=== PATIENT | female | born 1975 | race Two or more races ===

== ENCOUNTER → 2020-12-23 08:09 | Outpatient (BNVA) | payer SELFPAY | PROVIDERS: PCP Internal Medicine; Visit Provider Internal Medicine | DX: Z02.79 Encounter for issue of other medical certificate (principal) ==

== ENCOUNTER 2021-08-07 11:17 | Outpatient (REF) | payer OTHER, SELFPAY ==
[2021-08-07 14:06] LABS: Hematocrit 40.4 % (37.0-47.0); Hemoglobin 13.2 g/dl (12.0-16.0); Mean Corpuscular HGB Conc 32.7 g/dl (31.0-35.0); Mean Corpuscular Hemoglobin 29.3 pg (27.0-33.0); Mean Corpuscular Volume 89.8 fL (80.0-98.0); Mean Platelet Volume 9.5 fL (9.4-12.3); Platelet Count 325 X10*3/uL (160-400); White Blood Count 5.9 X10*3/uL (4.8-10.8)
[2021-08-07 14:35] LABS: Alanine Aminotransferase 15 U/L (0-31); Albumin Level 4.2 g/dL (3.5-5.0); Alkaline Phosphatase 80 U/L (39-117); Anion Gap 9 (12-20); Aspartate Amino Transferase 14 U/L (5-31); Bilirubin Total 0.4 mg/dL (0.0-1.0); Blood Urea Nitrogen 5 mg/dL (9-16); Calcium 9.3 mg/dL (8.4-10.2); Carbon Dioxide 27 mmol/L (22-29); Chloride 107 mmol/L (96-108); Cholesterol 142 mg/dL; Estimated Glomerular Filt Rate > 60; Glucose Fasting 97 mg/dL (60-99); HDL Cholesterol 33 mg/dL; LDL Cholesterol Calculated 88 mg/dl; Potassium 4.1 mmol/L (3.3-5.1); Sodium 139 mmol/L (135-145); Triglycerides 106 mg/dL
[2021-08-07 14:49] LABS: TSH reflex Free T4 1.06 uIU/mL (0.32-4.0)
== END 2021-08-07 11:18 | disposition home or self-care (01) ==
LOC: HO.WFDLDS 11:17
PROVIDERS: Visit Provider Hospitalist
DX: Z00.00 Encounter for general adult medical examination without abnormal findings (principal)
CPT/HCPCS: 36415; 80053; 80061; 84443; 85027

== ENCOUNTER → 2022-12-16 10:47 | Outpatient (BNVA) | payer SELFPAY | PROVIDERS: PCP Hospitalist; Visit Provider Physician Assistant Medical | DX: Z02.79 Encounter for issue of other medical certificate (principal) ==

== ENCOUNTER 2023-09-13 08:37 | Outpatient (AMB) | payer OTHER, SELFPAY ==
--- NOTE | 2023-09-13 08:43 | AM.OFFWIN_ITS ---
Intake Vital Signs 09/13/23 08:44 Height 5 ft 4 in Weight 160 lb BMI 27.5 BP 122/74 Blood Pressure Location Lt brachial Position Sitting Pulse 78 Pulse Source Pulse Oximeter Temp 97.8 F Temp Source Oral Pulse Oximetry (%) 98 Intake Visit Reasons: EP Back Pain Intake Note: pt is here for back pain, history of sciatica pain, denies urination urgency or any issues Patient Tobacco Use Status: Never used Tobacco Allergies cyclobenzaprine Adverse Reaction (Unknown, Verified 09/13/23 08:45) rapid heart rate Do you need a note to return to daycare/school/sports/work: No HPI HPI Comments History of Present Illness Details Patient presents to the walk-in today for sick visit Endorses right lower back pain for last 3 days Pain started after she got out of her vehicle Endorses history of lower back pain, states feels like her pain in the past She has been taking ibuprofen with minimal improvement Has applied topical [id number] medications without improvement Pain is worse with bending, movement and palpation Denies chance of , denies urinary signs and symptoms denies fevers. denies abdominal pain, nausea, vomiting, diarrhea or constipation COUNTS INCLUDE 234 BEDS AT THE [facility] Social History Housing: House Patient Tobacco Use Status: Never used Tobacco Current occupational status: employed Review of Systems Const All systems reviewed & are unremarkable except as noted in HPI and below Physical Exam Vital Signs: Last Vital Signs Temp 97.8 F 09/13/23 08:44 Pulse 78 09/13/23 08:44 BP 122/74 09/13/23 08:44 Pulse Ox 98 09/13/23 08:44 BMI result Body Mass Index 27.5 General: awake, alert, oriented. Answers questions appropriately. Fully engaged in examination. Skin: warm, dry, intact HEENT: Normocephalic. Hearing intact. Cardiac: External chest normal in appearance. Respiratory: No cough, audible wheezing or stridor. Abdomen: without gross distension. Abdomen soft nontender, no guarding. No CVA tenderness MS: No obvious swelling or deformities. Able to transition from sit to stand unassisted. Ambulates with bilaterally normal heel strike and toe off Tenderness to palpation over right lumbar musculature Nontender over midline lumbar vertebrae or lumbar paraspinal muscles SLR negative bilaterally Negative footdrop, negative clonus Range of motion limited secondary to pain. Extension more painful than flexion Neurological: Oriented to person, place, time and situation. Thought process intact. No gait abnormalities appreciated. Psychiatric: Appropriate mood and affect. Good judgment and insight. Assessment & Plan Assessment & Plan (1) Lumbar muscle pain: Code(s): M79.18 - Myalgia, other site Plan Continue with ibuprofen as needed Methocarbamol 500 mg p.o. t.i.d., patient advised on cautions for use. No driving while taking this medication may cause drowsiness. Do not take with other [employer] depressants. Lidocaine 5% patches, on for 12 hours, off for 12 hours. If no improvement patient was advised to follow up with her primary care doctor, may benefit from physical therapy or referral to crop specialist given history of chronic back pain. Follow up at the walk-in or with PCP for any new or worsening symptoms. Medications: New methocarbamol May cause drowsiness, no driving while taking this medication 500 mg PO TID 21 tabs 0RF lidocaine 5% leave on most painful area for up to 12 hrs 1 patch topical DAILY 15 ea 0RF Coding Level of Care Code Est Pt Level 3 (53392) Diagnoses Lumbar muscle pain M79.18
[2023-09-13 08:44] VITALS: BP 122/74; PULSE 78; TEMP 36.6; O2SAT 98; BMI 27.5
== END 2023-09-13 09:59 | disposition home or self-care (01) ==
PROVIDERS: PCP Hospitalist; Visit Provider Registered Nurse Emergency
DX: M79.18 Myalgia, other site (principal)
CPT/HCPCS: 99213

== ENCOUNTER 2023-10-11 13:06 | Outpatient (AMB) | payer OTHER, SELFPAY ==
--- NOTE | 2023-10-11 13:19 | A.OFFPC_ITS ---
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 Required: No Allergies cyclobenzaprine Adverse Reaction (Unknown, Verified 10/11/23 13:38) rapid heart rate Medication List - Last Reconciled 10/11/23 by Shantell Thompson, DIRECTOR STARS- lidocaine 5% 1 patch topical DAILY methocarbamol 500 mg PO TID Tobacco use date assessed: 10/11/23 Dental Screening Dental Screen Date: 10/11/23 Did you have a dental visit in the last 12 months?: Yes Did you have a dental problem in the last 6 months where you did not have access to dental care?: No Was dental information given to patient?: Patient has dentist HPI HPI Comments History of Present Illness Details 48 y/o F with chronic back pain, headach e social: 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 Alive and well. Siblings: 4 sisters, 2 brothers. Alive and well. Health Maintenance: Pap 08/2023 normal in [facility]. Denies hx of abnormals. Mammo 3 years ago Tdap 2018 Dexa has never had one Specialists: None Here today for CPE Eyes- denies visual problems. No corrective lenses. And to discuss the following problems: C/o R ear bother me inside ; this started 2 months ago. Denies drainage. Normal hearing. Left ear is not effected. No home tx. when eats, feels choking, has to drink water to help it go down; feels acid reflux; reports happens w/ all food types. Takes tums PRN with mild relief. Reports this started about 1 month ago. Has never had EGD or colonoscopy. has bruising, reports easy bruising w/o overt injury. Does not take ASA. Does take NSAIDS d/t chronic back pain. This started about 2 months ago. Occurs any where on body - arms, legs, back. 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 1. Little interest or pleasure in doing things: not at all 2. Feeling down, depressed, or hopeless: not at all 3. Trouble falling or staying asleep, or sleeping too much: not at all 4. Feeling tired or having little energy: not at all 5. Poor appetite or overeating: not at all 6. Feeling bad about yourself - or that you are a failure or have let yourself or your family down: not at all 7. Trouble concentrating on things, such as reading the newspaper or watching television: not at all 8. Moving or speaking so slowly that other people could have noticed. Or the opposite - being so fidgety or restless that you have been moving around a lot more than usual: not at all 9. Thoughts that you would be better off or of hurting yourself in some way: not at all Total score: 0 Depression Screening Interpretation: Negative Depression Screening Done: Yes 12176 - PHQ-9 Billing: Yes Source: Developed by Drs. Chilango Arenas, Giulia Van, Yousif Britt and colleagues, with an educational robert from [employer]. Thrive Questionnaire Date Thrive assessed: 10/11/23 I am a: Patient What is your living situation today?: I have a steady place to live Within the past 12 months, did the food you bought not last and you didn't have the money to get more?: Never true Within the past 12 months, did you worry whether your food would run out before you got money to buy more?: Never true Do you have trouble paying for medicines?: No Do you have trouble getting transportation to medical appointments?: No Do you have trouble paying your heating and electricity bill?: No Do you have trouble taking care of your child, family member or friend?: No Do you have trouble with day-to-day activities such as bathing, preparing meals, shopping, managing finances, etc.?: No Are you currently unemployed and looking for a job?: No Are you interested in more education?: No Please select the resources that you would like help with: None Currently or been in a relationship where the following occur: no concerns reported THRIVE Score: 0 AUDIT C Alcohol Use Questionnaire (AUDIT-C) 1. How often do you have a drink containing alcohol?: Never 3. How often do you have six or more drinks on one occasion?: Never Total Score: 0 Score Reviewed/Action Taken: Yes MK-7 AMB Questionnaire MK-7 Date MK - 7 assessed: 10/11/23 Feeling nervous, anxious, or on edge: 0 = Not at all Not being able to stop or control worryin = Not at all Worrying too much about different things: 0 = Not at all Trouble relaxin = Not at all Being so restless that it is hard to sit still: 0 = Not at all Becoming easily annoyed or irritable: 0 = Not at all Feeling afraid as if something awful might happen: 0 = Not at all Total MK-7 score (0-4 normal; 5-9 mild; 10-14 moderate; 15-21 severe): 0 Source: Developed by Drs. Chilango Arenas, Giulia Van, Yousif Britt and colleagues, with an educational robert from [employer]. MK-7 Assessment Billing MK-7 Assessment Tool: MK-7 Assessment 55246 Review of Systems Const Details: Constitutional: Denies fever. Skin: Denies rash. Eye: Denies eye pain. ENMT: Denies sore throat and nasal congestion. Respiratory: Denies shortness of breath and cough. Gastrointestinal: Denies nausea, vomiting or abdominal pain. Cardiovascular: Denies chest pain and syncope. Genitourinary: Denies dysuria. Musculoskeletal: Denies back pain and extremity pain. Neurologic: Denies headaches, confusion, and weakness. Psychiatric: Denies suicidal thoughts and substance abuse. Allergy/ Immunologic: Denies impaired immunity. Physical exam (Primary Care) Vital Signs: Last Vital Signs Temp 98.6 F 10/11/23 13:23 Pulse 75 05/20/24 13:23 Resp 14 10/11/23 13:23 BP 118/68 10/11/23 13:23 Pulse Ox 96 10/11/23 13:23 Oxygen Delivery Method Room Air 10/11/23 13:23 BMI result Body Mass Index 28.5 BMI Assessment/Plan discussion: High BMI High, discussed plan: lifestyle Tobacco/Smoking Status: Tobacco use Status Tobacco use date assessed 10/11/23 10/11/23 13:22 Patient Tobacco Use Status Never used Tobacco 10/11/23 13:22 e-Cigarette/Vaping Use Never Used 10/11/23 13:22 Depression Screening Interpretation: Negative Thrive Assessment: Date of Thrive Assessment Date Thrive assessed 10/11/23 10/11/23 13:26 Currently or been in a relationship where the following occur: no concerns reported Advance Care Planning discussion: Exists, not on file Date of discussion: 10/11/23 Who was present: Self Forms completed: Health Care Proxy and MOLST Time spent: 1-15 minutes, not on file Actual minutes spent: 2 Did not discuss due to Cultural/Spiritual beliefs: No Const Other: General: Well developed, well nourished, in no acute distress. Appears stated age. Head: Normocephalic, atraumatic. Eyes: Pupils are equal, round and reactive to light and accommodation. Conjunctivae are clear. Vision grossly normal. Ears: Cerumen impaction bilat, unable to see TM Nose: Patent, without discharge. Mouth: There are no ulcers or lesions noted. No inflammation, no post nasal drip, no plaques nor exudates. Neck: Supple, no adenopathy , + thyromegaly, nontender, trachea midline Lungs: Clear to auscultation bilaterally. No rales, rhonchi or wheeze noted. Ten throughout Heart: Regular rate and rhythm. No murmurs, click, rubs or gallops are noted. Abdomen: Bowel sounds present in all quadrants. The abdomen is soft, nontender, with no masses or organomegaly noted. No hernias are noted. Musculoskeletal: Joints are nontender, without swelling, redness, or effusions. Range of motion is observed to be normal. Pulses: Peripheral pulses are equal and palpable bilaterally. Extremities: No clubbing, cyanosis nor edema is noted. Neurologic: Gait and station normal. Cranial Nerves 2-12 intact. Motor strength grossly symmetrical and intact. No sensory loss. Balance normal. Skin: No rashes, ulcers, or lesions noted. Turgor is good. Skin color is good. Hair and nails are without abnormalities. Several bruises in different stages of healing noted on bilat arms during exam today Psych: Normal eye contact, affect and mood appropriate, and normal interactions. Patient is alert and appropriate to context. Extremities: No clubbing, cyanosis or edema. Assessment and Plan Assessment & Plan (1) Encounter for general adult medical examination with abnormal findings: Code(s): Z00.01 - Encounter for general adult medical examination with abnormal findings (2) Thyromegaly: Comment: We will check thyroid labs as well as an ultrasound of the thyroid and bring her back to discuss. Code(s): E01.0 - Iodine-deficiency related diffuse (endemic) goiter (3) Bruising: Comment: We will check some labs and bring her back to discuss. May be related to NSAID use. Code(s): T14.8XXA - Other injury of unspecified body region, initial encounter (4) Impacted cerumen, bilateral: Comment: Treat with Debrox and return to office next week for bilat lavage Code(s): H61.23 - Impacted cerumen, bilateral (5) Menopause: Comment: DEXA ordered today. Code(s): Z78.0 - Asymptomatic menopausal state (6) Dysphagia: Comment: Uncertain of the cause at this time. Incidental finding of thyromegaly on exam. May be related to this. In addition to the thyroid ultrasound, we will check a stool for H pylori. She may benefit from a barium swallow or perhaps a referral to GI. We will wait until the current labs and diagnostics are complete before placing any additional orders. Code(s): R13.10 - Dysphagia, unspecified Qualifiers: Dysphagia type: oropharyngeal phase Qualified Code(s): R13.12 - Dysphagia, oropharyngeal phase Plan This note is constructed using voice recognition software. While every effort has been made to ensure accuracy in admissions advisor, still errors may have been included Sometimes, these errors may affect the content or meaning of the given sentence . In addition to the time required for her complete physical exam, and additional 20 minutes caring for the patient today to address her problematic concerns.. This includes time spent before the visit reviewing the chart, time spent during the visit, and time spent after the visit on documentation Orders: Orders Microalbumin, Random (w Creat) Today Z00.00 - Encounter for general adult medical examination without abnormal findings Complete Blood Count Auto Diff Today E01.0 - Iodine-deficiency related diffuse (endemic) goiter, T14.8XXA - Other injury of unspecified body region, initial encounter PT, INR - Anti Coag Today E01.0 - Iodine-deficiency related diffuse (endemic) goiter, T14.8XXA - Other injury of unspecified body region, initial encounter Hepatitis A,B,C Profile Today E01.0 - Iodine-deficiency related diffuse (endemic) goiter, T14.8XXA - Other injury of unspecified body region, initial encounter HIV Ab/Ag Today E01.0 - Iodine-deficiency related diffuse (endemic) goiter, T14.8XXA - Other injury of unspecified body region, initial encounter Comprehensive Met. Panel Today Z00.00 - Encounter for general adult medical examination without abnormal findings LDL Cholesterol Direct Today Z00.00 - Encounter for general adult medical examination without abnormal findings Hemoglobin A1c Today Z00.00 - Encounter for general adult medical examination without abnormal findings TSH reflex Free T4 Today Z00.00 - Encounter for general adult medical examination without abnormal findings Vitamin D 1,25 dihydroxy Today Z00.00 - Encounter for general adult medical examination without abnormal findings MM tomosynthesis screening BI Today Z12.31 - Encounter for screening mammogram for malignant neoplasm of breast US thyroid Today E01.0 - Iodine-deficiency related diffuse (endemic) goiter, H61.23 - Impacted cerumen, bilateral, T14.8XXA - Other injury of unspecified body region, initial encounter Thyroid Peroxidase Antibodies Today E01.0 - Iodine-deficiency related diffuse (endemic) goiter XR DEXA appendicular skeleton Today Z78.0 - Asymptomatic menopausal state Von Willebrand Factor Antigen Today E01.0 - Iodine-deficiency related diffuse (endemic) goiter, T14.8XXA - Other injury of unspecified body region, initial encounter CAMRYN Reflex Titer and Pattern Today E01.0 - Iodine-deficiency related diffuse (endemic) goiter, T14.8XXA - Other injury of unspecified body region, initial encounter H pylori Ag Stool Today E01.0 - Iodine-deficiency related diffuse (endemic) goiter, T14.8XXA - Other injury of unspecified body region, initial encounter Medications: New carbamide peroxide 6.5% (Debrox) 5 drps otic (ears) DAILY 5 days 15 mL 0RF BILAT EARS Patient Instructions: Return to office next week to review labs as well as bilat ear lavage Health screenings for women You should visit your health care provider from time to time, even if you are healthy. The purpose of these visits is to: Screen for medical issues Assess your risk for future medical problems Encourage a healthy lifestyle Update vaccinations and other preventive care services Help you get to know your provider in case of an illness Information Even if you feel fine, you should still see your provider for regular checkups. These visits can help you avoid problems in the future. For example, the only way to find out if you have high blood pressure is to have it checked regularly. High blood sugar and high cholesterol levels also may not have any symptoms in the early stages. A simple blood test can check for these conditions. There are specific times when you should see your provider or receive specific health screenings. The [place] Preventive Services Task Force publishes a list of recommended screenings. Below are screening guidelines for women ages 18 to 39. BLOOD PRESSURE SCREENING Your blood pressure should be checked at least once every 3 to 5 years if: Your blood pressure is in the normal range (top number less than 120 mm Hg and bottom number less than 80 mm Hg) You don't have risk factors for high blood pressure Ask your provider if you need your blood pressure checked more often if: The top number is 120 to 129 mm Hg or the bottom number is 70 to 79 mm Hg You have diabetes, heart disease, kidney problems, are overweight, or have certain other health conditions You have a first-degree relative with high blood pressure You are Black You had high blood pressure during a If the top number is 130 mm Hg or greater or the bottom number is 80 mm Hg or greater, this is considered stage 1 hypertension. Schedule an appointment with your provider to learn how you can reduce your blood pressure. Watch for blood pressure screenings in your area. Ask your provider if you can stop in to have your blood pressure checked. BREAST CANCER SCREENING Experts do not agree about the benefits of breast self-exams in finding breast cancer or saving lives. Talk to your provider about what is best for you. A screening mammogram is not recommended for most women under age 40. Your provider may discuss and recommend mammograms, MRI scans, or ultrasounds if you have an increased risk for breast cancer, such as: A mother or sister who had breast cancer at a young age (most often starting screening earlier than the age the close relative was diagnosed) You carry a high-risk genetic marker CERVICAL CANCER SCREENING Cervical cancer screening should start at age 21 years unless your provider advises otherwise. After the first test: Women ages 21 through 29 should have a Pap test every 3 years. Exoprts do not agree on whether HPV testing is recommended for this age group. Women ages 30 through 65 should be screened with either a Pap test every 3 years or the HPV test every 5 years or both tests every 5 years (called cotesting ). Women who have been treated for precancer (cervical dysplasia) should continue to have Pap tests for 20 years after treatment or until age 65, whichever is longer. If you have had your uterus and cervix removed (total hysterectomy), and you have not been diagnosed with cervical cancer or precancer (high grade cervical neoplasia), you do not need cervical cancer screening. CHOLESTEROL SCREENING Cholesterol screening should begin at: Age 45 for women with no known risk factors for coronary heart disease Age 20 for women with known risk factors for coronary heart disease Repeat cholesterol screening should take place: Every 5 years for women with normal cholesterol levels More often if changes occur in lifestyle (including weight gain and diet) More often if you have diabetes, heart disease, kidney problems, or certain other conditions DIABETES SCREENING You should be screened for diabetes starting at age 35 and then repeated every 3 years if you have no risk factors for diabetes. Screening may need to start earlier and be repeated more often if you have other risk factors for diabetes, such as: You have a first degree relative with diabetes. You are overweight or have obesity. You have high blood pressure, prediabetes, or a history of heart disease. Screening for diabetes should be done if you are planning to become and you are overweight and have other risk factors such as high blood pressure. DENTAL EXAM Go to the dentist once or twice every year for an exam and cleaning. Your dentist will evaluate if you need more frequent visits. EYE EXAM Have an eye exam every 5 to 10 years before age 40. If you have vision problems, have an eye exam every 2 years or more often if recommended by your provider. You should have an eye exam that includes an examination of your retina (back of your eye) at least every year if you have diabetes. IMMUNIZATIONS Commonly needed vaccines include: Flu shot: get one every year. COVID-19 vaccine: ask your provider what is best for you. Tetanus-diphtheria and acellular pertussis (Tdap) vaccine: have one at or after age 19 as one of your tetanus-diphtheria vaccines if you did not receive it as an adolescent. Tetanus-diphtheria: have a booster (or Tdap) every 10 years. Varicella vaccine: receive 2 doses if you never had chickenpox or the varicella vaccine. Hepatitis B vaccine: receive 2, 3, or 4 doses, depending on your exact circumstances. Measles, mumps, and rubella (MMR) vaccine: receive 1 to 2 doses if you are not already immune to MMR. Your provider can tell you if you are immune. Ask your provider about the human papillomavirus (HPV) vaccine if: You have not received the HPV vaccine in the past You have not completed the full vaccine series (you should catch up on this shot) Ask your provider if you should receive other immunizations if you have certain health problems that increase your risk for some diseases such as pneumonia. INFECTIOUS DISEASE SCREENING Women who are sexually active should be screened for chlamydia and gonorrhea up until age 25. Women 25 years and older should be screened for chlamydia and gonorrhea if at high risk. Screening for hepatitis C: All adults ages 18 to 79 should get a one-time test for hepatitis C. people should be screened at every . Screening for human immunodeficiency virus (HIV): All people ages 15 to 65 should get a one-time test for HIV. Depending on your lifestyle and medical history, you may also need to be screened for infections such as syphilis and HIV, as well as other infections. PHYSICAL EXAM All adults should visit their provider from time to time, even if they are healthy. The purpose of these visits is to: Screen for disease Assess your risk of future medical problems Encourage a healthy lifestyle Update your vaccinations and other preventive care services Maintain a relationship with a provider in case of an illness Your height, weight, and BMI should be checked at every exam. During your exam, your provider may ask you about: Depression and anxiety Diet and exercise Alcohol and tobacco use Safety issues, such as using seat belts, smoke detectors, and intimate partner violence Your medicines and risk for interactions SKIN SELF-EXAM Your provider may check your skin for signs of skin cancer, especially if you're at high risk, such as if you: Have had skin cancer before Have close relatives with skin cancer Have a weakened immune system OTHER SCREENING Talk with your provider about colon cancer screening if you have a strong family history of colon cancer or polyps, or if you have had inflammatory bowel disease or polyps yourself. Routine bone density screening of women under 40 is not recommended. Coding Level of Care Code Est Pt Level 3 (99190) Est Pt Prev Care 40-64y(99611) Diagnoses Encounter for general adult medical examination with abnormal findings Z00.01 Thyromegaly E01.0 Bruising T14.8XXA Impacted cerumen, bilateral H61.23 Menopause Z78.0 Oropharyngeal dysphagia R13.12 Dysphagia type: oropharyngeal phase Additional Codes MK-7 Assessment Billing - MK-7 Assessment Tool: MK-7 Assessment 04387 ([id number]) Vital Signs *Quality* - Advance Care Planning discussion: Exists, not on file ([id number]) Vital Signs *Quality* - Time spent: 1-15 minutes, not on file ([id number])
[2023-10-11 13:23] VITALS: BP 118/68; PULSE 75; RESP 14; TEMP 37; O2SAT 96; BMI 28.5
== END 2023-10-11 13:55 | disposition home or self-care (01) ==
PROVIDERS: PCP Nurse Practitioner Family; Visit Provider Nurse Practitioner Family
DX: Z00.01 Encounter for general adult medical examination with abnormal findings (principal); E01.0 Iodine-deficiency related diffuse (endemic) goiter; T14.8XXA Other injury of unspecified body region, initial encounter; H61.23 Impacted cerumen, bilateral; Z78.0 Asymptomatic menopausal state; R13.12 Dysphagia, oropharyngeal phase
CPT/HCPCS: 1124F; 99213; 99396

== ENCOUNTER 2023-10-12 09:40 | Outpatient (REF) | payer OTHER, SELFPAY ==
[2023-10-12 10:20] LABS: MANUAL DIFF FLAG NO
[2023-10-12 10:52] LABS: Basophils Absolute Auto 0.1 X10*3/uL (0.0-0.2); Basophils Percent Auto 0.9 % (0-2); Eosinophils Absolute Auto 0.1 X10*3/uL (0.0-0.4); Eosinophils Percent Auto 0.8 % (0-4); Hematocrit 44.5 % (37.0-47.0); Hemoglobin 14.8 g/dl (12.0-16.0); Imm Gran Abs Auto 0.04 X10*3/uL (0.00-0.03); Imm Gran Pct Auto 0.6 % (0.0-0.4); Lymphocytes Percent Auto 29.9 % (20-40); Mean Corpuscular HGB Conc 33.3 g/dl (31.0-35.0); Mean Corpuscular Hemoglobin 29.5 pg (27.0-33.0); Mean Corpuscular Volume 88.8 fL (80.0-98.0); Monocytes Absolute Auto 0.5 X10*3/uL (0.1-1.2); Monocytes Percent Auto 7.7 % (2-11); Neutrophils Percent Auto 60.1 % (45-73); Platelet Count 358 X10*3/uL (160-400); Red Blood Count 5.01 X10*6/uL (4.20-5.50); Red Cell Distribution Width 13.2 % (11.0-16.0); White Blood Count 6.6 X10*3/uL (4.8-10.8)
[2023-10-12 10:57] LABS: Estimated Average Glucose 111 mg/dL; Hemoglobin A1c % 5.5 % (<6.0)
[2023-10-12 11:46] LABS: Alanine Aminotransferase 22 U/L (0-31); Albumin Level 4.4 g/dL (3.5-5.0); Alkaline Phosphatase 102 U/L (39-117); Anion Gap 14 (12-20); Aspartate Amino Transferase 21 U/L (5-31); Bilirubin Total 0.3 mg/dL (0.0-1.0); Blood Urea Nitrogen 6 mg/dL (9-16); Calcium 9.9 mg/dL (8.4-10.2); Carbon Dioxide 25 mmol/L (22-29); Chloride 106 mmol/L (96-108); Estimated Glomerular Filt Rate > 60; Glucose Random 83 mg/dL (60-115); Potassium 4.4 mmol/L (3.3-5.1); Sodium 141 mmol/L (135-145); Total Protein 7.6 g/dL (6.5-8.0)
[2023-10-12 11:54] LABS: Creatinine Urine 34.97 mg/dL; Microalbumin Urine < 5.0 mg/L
[2023-10-12 12:05] LABS: TSH reflex Free T4 1.84 uIU/mL (0.32-4.0)
[2023-10-13 08:13] LABS: HBS Num1 0.54 mIU/mL (0-7.99); HBc Num1 0.11 S/CO (0.00-0.79); HBsAGNum1 0.33 S/CO (0.00-0.99); HIV AB/AG Nonreactive (Nonreactive); HIV Num 1 0.04 S/CO (0.00-0.99); Hepatitis A Antibody IgM 0.16 Index (0-0.79); Hepatitis B Core Antibody Nonreactive (Nonreactive); Hepatitis B Surface Antigen Negative (Negative); ~HepC Num1 0.08 S/CO (0.00-0.79); ~Hepatitis A Antibody IgM Nonreactive (Nonreactive); ~Hepatitis B Surface Antibody NONREACTIVE (Nonreactive); ~Hepatitis C Antibody Nonreactive (Nonreactive)
[2023-10-13 11:48] LABS: LDL Cholesterol Direct 103 mg/dL (<100)
[2023-10-13 18:13] LABS: Thyroid Peroxidase Antibodies 19 IU/mL (<9)
[2023-10-14 16:14] LABS: Anti Nuclear Antibody Screen NEGATIVE (NEGATIVE)
[2023-10-15 17:13] LABS: Von Willebrand Factor Antigen 71 % (50-217)
[2023-10-16 05:49] LABS: VITAMIN D (1,25 OH) D3 29 pg/mL; Vit D (1,25-Dihydroxy) Total 29 pg/mL (18-72); Vitamin D (1,25 OH) D2 <8 pg/mL
== END 2023-10-12 09:41 | disposition home or self-care (01) ==
LOC: HO.LAB 09:40
PROVIDERS: PCP Nurse Practitioner Family; Visit Provider Nurse Practitioner Family
DX: Z00.00 Encounter for general adult medical examination without abnormal findings (principal); T14.8XXA Other injury of unspecified body region, initial encounter; E01.0 Iodine-deficiency related diffuse (endemic) goiter
CPT/HCPCS: 36415; 80053; 82043; 82570; 82652; 83036; 83721; 84443; 85025; 85246; 86038; 86376; 86704; 86706; 86709; 86803; 87338; 87340; 87389

== ENCOUNTER 2023-10-21 12:59 | Outpatient (AMB) | payer OTHER, SELFPAY ==
[2023-10-21 13:18] VITALS: BP 118/70; PULSE 68; RESP 13; TEMP 36.6; O2SAT 97; BMI 28.4
--- NOTE | 2023-10-21 13:18 | A.OFFPC_ITS ---
Vital Signs 10/21/23 13:18 Height 5 ft 2.6 in Weight 158 lb 4 oz BMI 28.4 BP 118/70 Blood Pressure Location Rt brachial Position Sitting Respiration 13 Pulse 68 Pulse Source Pulse Oximeter Temp 97.8 F Temp Source Temporal Artery Scan Pulse Oximetry (%) 97 Oxygen Delivery Method Room Air Intake Visit Reasons: next week w me Bilat ear lavage, lab review Associate [employer] Required: No Accompanied by: Self / Same As Patient Allergies cyclobenzaprine Adverse Reaction (Unknown, Verified 10/21/23 13:24) rapid heart rate Medication List - Last Reconciled 10/21/23 by Shantell Thompson, WELDER 2ND [employer]- lidocaine 5% 1 patch topical DAILY methocarbamol 500 mg PO TID Tobacco use date assessed: 10/11/23 Dental Screening Dental Screen Date: 10/11/23 HPI HPI Comments History of Present Illness Details 48 y/o F with chronic back pain, headach e Here today to fu on bruising, thyromegaly, labs, choking sensation & abd pain. The labs below were reviewed w/ her in detail. Labs 10/12/2019 with mean platelet volume low 9, immature granulocytes high 0.6, elevated absolute immature granulocytes 0.04, otherwise normal CBC, hemoglobin A1c 5.5%, Normal CMP, normal TSH, normal urine microalbumin creatinine ratio, LDL 103, H pylori negative, CAMRYN negative, TPO antibodies elevated at 19, hepatitis profile negative. This includes immunity to hep B recommend hep B vaccine, HIV negative, negative Sorin alvarado Vit D WNL She was able to use debrox. Cont w/ bruising and choking w/o change. New complaint today about headache w/ blurred vision that has happened 3-4 times in the last month. Reports migraines but this feels different. Denies any loss of function, fever, chills or red flag sx. Last eye exam 2 years ago. Sx resolve after resting. Taking NSAIDs for chronic back pain - nothing add'l to help w/ this headache. Has thyroid US today at 1530. Plan: Bilat ears irrigated today. Refer to Optho for eye exam. If negative, consider imaging of head. Discussed referral to heme for bruising and abnormal CBC VS repeating labs in about 6 weeks. If cont to be abnormal or worse, at that time refer to Heme. Advised to stop Ibuprofen start celebrex try to use sparingly Will review thyroid US results and review w her at next OV. She does have + TPO AB with normal TSH. 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 Chilango Arenas, Giulia Van, Yousif Britt and colleagues, with an educational robert from [employer]. Review of Systems Const All systems reviewed & are unremarkable except as noted in HPI and below Physical exam (Primary Care) Vital Signs: Last Vital Signs Temp 97.8 F 10/21/23 13:18 Pulse 68 10/21/23 13:18 Resp 13 10/21/23 13:18 BP 118/70 10/21/23 13:18 Pulse Ox 97 10/21/23 13:18 Oxygen Delivery Method Room Air 10/21/23 13:18 BMI result Body Mass Index 28.4 Tobacco/Smoking Status: Tobacco use Status Tobacco use date assessed 10/11/23 10/21/23 13:25 Patient Tobacco Use Status Never used Tobacco 10/21/23 13:25 e-Cigarette/Vaping Use Never Used 10/21/23 13:25 Thrive Assessment: Date of Thrive Assessment Date Thrive assessed 10/11/23 10/21/23 13:25 Const Other: General: Well developed, well nourished, in no acute distress. Appears stated age. Head: Normocephalic, atraumatic. Eye: EOMI,PERRLA, no photophobia Neck: Supple, no adenopathy , + thyromegaly, nontender, trachea midline Skin: No rashes, ulcers, or lesions noted. Turgor is good. Skin color is good. Hair and nails are without abnormalities. Several bruises in different stages of healing noted on bilat arms during exam today Neuro: grossly normal exam. Office Procedures Cerumen Removal From which ear canal was the cerumen removed: bilateral Removal: irrigation Notes: patient tolerated procedure well, no complications and ear canal clear [id number] Irrigation/Lavage Assessment and Plan Assessment & Plan (1) Blurred vision: Code(s): H53.8 - Other visual disturbances (2) Bruising: Comment: May be related to NSAID use. Code(s): T14.8XXA - Other injury of unspecified body region, initial encounter (3) Dysphagia: Comment: Uncertain of the cause at this time. Incidental finding of thyromegaly on exam. May be related to this. In addition to the thyroid ultrasound,. She may benefit from a barium swallow or perhaps a referral to GI. We will wait until the current labs and diagnostics are complete before placing any additional orders. Code(s): R13.10 - Dysphagia, unspecified Qualifiers: Dysphagia type: oropharyngeal phase Qualified Code(s): R13.12 - Dysphagia, oropharyngeal phase (4) Impacted cerumen, bilateral: Comment: resolved Code(s): H61.23 - Impacted cerumen, bilateral (5) Thyromegaly: Comment: + TPO AB, US pending. 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 SOONER NEEDED. PLEASE SCHEDULE EYE DR APPBlossom GILDA Coding Level of Care Code Est Pt Level 5 (33566) Complex EM visit Add On G2211 Diagnoses Blurred vision H53.8 Bruising T14.8XXA Oropharyngeal dysphagia R13.12 Dysphagia type: oropharyngeal phase Impacted cerumen, bilateral H61.23 Thyromegaly E01.0 CPT Codes Office Procedure - CPT: 90583-Rqx Irrigation/Lavage ([id number])
== END 2023-10-21 14:04 | disposition home or self-care (01) ==
PROVIDERS: PCP Nurse Practitioner Family; Visit Provider Nurse Practitioner Family
DX: R13.12 Dysphagia, oropharyngeal phase (principal); H61.23 Impacted cerumen, bilateral; H53.8 Other visual disturbances; T14.8XXA Other injury of unspecified body region, initial encounter; E01.0 Iodine-deficiency related diffuse (endemic) goiter
CPT/HCPCS: 69209; 99214; G2211

== ENCOUNTER 2023-10-21 14:34 | Outpatient (REF) | payer OTHER, SELFPAY ==
--- NOTE | ~2023-10-21 | US_ITS ---
EXAMINATION: US THYROID CLINICAL INFORMATION: Iodine-deficiency related diffuse (endemic) goiter. COMPARISON: None available. TECHNIQUE: Linear transducer grayscale and color Doppler examination with attention to the region of the thyroid. FINDINGS: SIZE: Measurements of the thyroid lobes and nodules are given in sagittal, anteroposterior and transverse dimensions respectively. Right Thyroid Lobe: 4.6 x 1.7 x 1.6 cm, volume 6.5 mL. Parenchyma: The gland echotexture is homogeneous. Thyroid vascularity is normal. Left Thyroid Lobe: 4.6 x 1.4 x 1.2 cm, volume 4.0 mL. Parenchyma: The gland echotexture is homogeneous. Thyroid vascularity is normal. Isthmus: 0.4 cm in maximum AP dimension. Estimated total number of nodules greater than or equal to 1 cm: 2. Infertility Medical Assistant nodules are described as follows: 1. Location: Right upper pole. Size: 1.0 x 0.8 x 0.9 cm, volume 0.4 mL. Nodule characteristics: Composition: Mixed cystic and solid (1). Echogenicity: Hypoechoic (2). Shape: Not taller than wide (0). Margins: Ill-defined (0). Echogenic Foci: None (0). ACR TI-RADS total points: 3 ACR TI-RADS category: 3 2. Location: Right lower pole. Size: 2.5 x 1.5 x 1.7 cm, volume 3.1 mL. Nodule characteristics: Composition: Solid/almost completely solid (2). Echogenicity: Isoechoic (1). Shape: Not taller than wide (0). Margins: Ill-defined (0). Echogenic Foci: None (0). ACR TI-RADS total points: 3 ACR TI-RADS category: 3 3. Location: Left mid pole. Size: 0.3 x 0.2 x 0.3 cm, volume 0.009 mL. Nodule characteristics: Composition: Solid (2). Echogenicity: Hyperechoic (1). Shape: Not taller than wide (0). Margins: Ill-defined (0). Echogenic Foci: None (0). ACR TI-RADS total points: 3 ACR TI-RADS category: 3 NODES: No lymphadenopathy is seen in the tissue surrounding the thyroid gland. US/US thyroid IMPRESSION: Bilateral thyroid nodules, largest 2.5 cm right lower TR3 nodule. Recommend followup ultrasound in 12 months. ACR TI-RADS RECOMMENDATION REFERENCE: Ultrasound-guided fine-needle aspiration, followup ultrasound, no further follow up. * TR1 (0 point) and TR2 (2 points): No FNA or follow up. * TR3 (3 points): FNA if more than or equal to 2.5 cm in maximum dimension, followup ultrasound in 1, 3 and 5 years if 1.5 to 2.4 cm in maximum dimension. * TR4 (4-6 points): FNA if more than or equal to 1.5 cm in maximum dimension, followup ultrasound in 1, 2, 3 and 5 years if 1 to 1.4 cm in maximum dimension. * TR5 (more than or equal to 7 points): FNA if more than or equal to 1 cm in maximum dimension, followup ultrasound every year for 5 years if 0.5 to 0.9 cm in maximum dimension. * TR3, TR4 or TR5 nodules that are below the size threshold for followup receive no follow up.
== END 2023-10-21 14:35 | disposition home or self-care (01) ==
LOC: HO.US 14:34
PROVIDERS: PCP Nurse Practitioner Family; Visit Provider Nurse Practitioner Family
DX: E01.0 Iodine-deficiency related diffuse (endemic) goiter (principal); T14.8XXA Other injury of unspecified body region, initial encounter; H61.23 Impacted cerumen, bilateral
CPT/HCPCS: 76536

== ENCOUNTER 2023-11-12 10:32 | Outpatient (REF) | payer OTHER, SELFPAY ==
--- NOTE | ~2023-11-12 | MM_ITS ---
EXAMINATION: BONE DENSITOMETRY CLINICAL INDICATION: Asymptomatic menopausal state. COMPARISON: This is the patient's baseline examination. TECHNIQUE: Using a [employer] DXA System (software version: 13.1) manufactured by [employer], dual-energy x-ray absorptiometry was performed of the lumbar spine and left hip. The images are of good technical quality. Summary results are attached. FINDINGS: LEFT FEMUR, NECK: BMD 0.782 g/cm2, Z-score -1.4, T-score -1.8, osteopenia. LEFT FEMUR, TOTAL: BMD 0.705 g/cm2, Z-score -2.2, T-score -2.4, osteopenia. AP SPINE L1-L4: BMD 0.983 g/cm2, Z-score -1.7, T-score -1.6, osteopenia. IDENTIFIED RISK FACTORS: Early menopause, secondary osteoporosis, bilateral oophorectomy. HISTORY OF FRACTURE: None listed. MEDICATIONS: ERT/SERMS. MM/XR DEXA axial skeleton IMPRESSION: 1. DIAGNOSIS: Osteopenia based on the lowest T-score value of -2.4 in the total femur applying World Health Organization criteria. 2. 10-YEAR FRACTURE RISK PREDICTION, FRAX: Not performed in this patient on estrogen or bone building treatments. 3. Treatment Recommendations: NOF guidelines recommend consideration for treatment in postmenopausal women and men age 50 and older presenting with the following: -A hip or vertebral (clinical or morphometric) fracture. -T-score less than or equal to -2.5 at the femoral neck or spine after appropriate evaluation to exclude secondary causes. -Low bone mass at the hip or spine and a 10-year fracture probability by FRAX of greater than or equal to 3% for hip fracture or greater than or equal to 20% for major osteoporotic fracture based on the [place] adapted WHO algorithm. 4. Other Recommendations: All treatment decisions require clinical judgment and consideration of individual patient factors, including patient preferences, comorbidities, previous drug use, risk factors not captured in the FRAX model (e.g. frailty, falls, vitamin D deficiency, increased bone turnover, interval significant decline in bone density) and possible under or overestimation of fracture risk by FRAX. Additional medical evaluation for secondary cause of low bone mineral density may be appropriate. FUTURE SCAN RECOMMENDATION: People with diagnosed cases of osteoporosis or at high risk for fracture should have regular bone mineral density tests. For patients eligible for Medicare, routine testing is allowed once every 2 years. The testing frequency can be increased to one year for patients who have rapidly progressing disease, those who are receiving or discontinuing medical therapy to restore bone mass, or have additional risk factors.
== END 2023-11-12 10:33 | disposition home or self-care (01) ==
LOC: HO.MAMMO 10:32
PROVIDERS: PCP Nurse Practitioner Family; Visit Provider Nurse Practitioner Family
DX: Z12.31 Encounter for screening mammogram for malignant neoplasm of breast (principal); Z13.820 Encounter for screening for osteoporosis; Z78.0 Asymptomatic menopausal state
CPT/HCPCS: 77063; 77067; 77080

== ENCOUNTER → 2023-11-12 11:00 | Outpatient (BNV) | payer OTHER, SELFPAY | PROVIDERS: PCP Nurse Practitioner Family; Visit Provider Radiology Diagnostic Radiology | DX: Z12.31 Encounter for screening mammogram for malignant neoplasm of breast (principal) | CPT/HCPCS: 77063; 77067 ==

== ENCOUNTER 2023-12-01 08:55 | Outpatient (AMB) | payer OTHER, SELFPAY ==
--- NOTE | 2023-12-01 08:57 | A.OFFPC_ITS ---
Vital Signs 12/01/23 09:01 Weight 159 lb 4 oz BP 128/74 Blood Pressure Location Lt brachial Position Sitting Pulse 68 Pulse Source Pulse Oximeter Temp 97.7 F Temp Source Temporal Artery Scan Pulse Oximetry (%) 98 Oxygen Delivery Method Room Air Intake Visit Reasons: f/u Bilat ear lavage, lab review Intake Note: patient here for follow up, ears are better. Conveyor Mechanic Required: No Is last menstrual period known: No Post menopausal: No Patient : No Allergies cyclobenzaprine Adverse Reaction (Unknown, Verified 12/01/23 08:59) rapid heart rate Medication List - Last Reconciled 12/01/23 by Shantell Thompson, STORAGE AND BACKUP ADMINISTRATOR-BC calcium-vitamin D3-vitamin K 650 mg-12.5 mcg-40 mcg (Viactiv) 1 tab PO DAILY celecoxib (Celebrex) 100 mg PO BID PRN lidocaine 5% 1 patch topical DAILY Tobacco use date assessed: 10/11/23 Dental Screening Dental Screen Date: 10/11/23 HPI HPI Comments History of Present Illness Details 48 y/o F with chronic back pain, osteope serge Health Maintenance: Pap Mammo DEXA 10/2023 Osteopenia, repeat 5 years Specialists: Ricky initial appt 12/29/23 Optho December 08 2023 Here today to fu on recent imaging as well as repeat labs. Unfortunately she did not get the repeat labs done before today's visit. She will get these done today after the visit. In regards to her bruising she did stop taking NSAIDs. She has had significant improvement in her bruises. However the Celebrex is not helping her pain at all. She continues to deny overt bleeding. In regards to the visual disturbances discuss with the last office visit, they are still there, no worse since onset. She has a initial ophthalmology appointment December 07. In regards to her thyroid, the ultrasound results below were discussed with her in detail today. An endocrinology referral was placed and her initial appointment is 12/29/2023 at [facility] endocrinology. Her bone density results were discussed with her today showing osteopenia. She does not take a multivitamin. She is active. We will start her on a calcium plus vitamin-D supplement. And finally she reports that she does not have a great appetite. Reports he is drinking lots of water to get food down so that she does not choke and therefore she is full before she is able to even eat or complete her meal. While this is not new she just mentions that again today. Labs 10/12/2023 with mean platelet volume low 9, immature granulocytes high 0.6, elevated absolute immature granulocytes 0.04, otherwise normal CBC, hemoglobin A1c 5.5%, Normal CMP, normal TSH, normal urine microalbumin creatinine ratio, LDL 103, H pylori negative, CAMRYN negative, TPO antibodies elevated at 19, hepatitis profile negative. This includes immunity to hep B recommend hep B vaccine, HIV negative, negative Conor Harris WNL Estimated total number of nodules greater than or equal to 1 cm: 2. Operator/Assistant Foreman nodules are described as follows: 1. Location: Right upper pole. Size: 1.0 x 0.8 x 0.9 cm, volume 0.4 mL. Nodule characteristics: Composition: Mixed cystic and solid (1). Echogenicity: Hypoechoic (2). Shape: Not taller than wide (0). Margins: Ill-defined (0). Echogenic Foci: None (0). ACR TI-RADS total points: 3 ACR TI-RADS category: 3 2. Location: Right lower pole. Size: 2.5 x 1.5 x 1.7 cm, volume 3.1 mL. Nodule characteristics: Composition: Solid/almost completely solid (2). Echogenicity: Isoechoic (1). Shape: Not taller than wide (0). Margins: Ill-defined (0). Echogenic Foci: None (0). ACR TI-RADS total points: 3 ACR TI-RADS category: 3 3. Location: Left mid pole. Size: 0.3 x 0.2 x 0.3 cm, volume 0.009 mL. Nodule characteristics: Composition: Solid (2). Echogenicity: Hyperechoic (1). Shape: Not taller than wide (0). Margins: Ill-defined (0). Echogenic Foci: None (0). ACR TI-RADS total points: 3 ACR TI-RADS category: 3 NODES: No lymphadenopathy is seen in the tissue surrounding the thyroid gland. US/US thyroid IMPRESSION: Bilateral thyroid nodules, largest 2.5 cm right lower TR3 nodule. Recommend followup ultrasound in 12 months. Plan Check labs today show improved/normal CBC w/ plat pharesis. Stop celebrex as this did not help. Avoid NSAIDs as this caused bruising. Refer to [facility] Pain mgmt for eval and tx of chronic low back pain that is NOT medication or NSAIDS. Endocrinology and ophthalmology appointments as scheduled Start calcium plus vitamin-D supplement. Repeat DEXA in 5 years. If her eye exam is benign, we will order imaging of her head for further evaluation of her complaints. Return to office in about 2 months to follow up, sooner as needed. 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 Chilango Arenas, Giulia Van, Yousif Britt and colleagues, with an educational robert from [employer]. Physical exam (Primary Care) Vital Signs: Last Vital Signs Temp 97.7 F 12/01/23 09:01 Pulse 68 12/01/23 09:01 BP 128/74 12/01/23 09:01 Pulse Ox 98 12/01/23 09:01 Oxygen Delivery Method Room Air 12/01/23 09:01 Tobacco/Smoking Status: Tobacco use Status Tobacco use date assessed 10/11/23 12/01/23 08:59 Patient Tobacco Use Status Never used Tobacco 12/01/23 08:59 e-Cigarette/Vaping Use Never Used 12/01/23 08:59 Thrive Assessment: Date of Thrive Assessment Date Thrive assessed 10/11/23 12/01/23 08:59 Const Other: General: Well developed, well nourished, in no acute distress. Appears stated age. Head: Normocephalic, atraumatic. Eye: EOMI,PERRLA, no photophobia Neck: Supple, no adenopathy , + thyromegaly, nontender, trachea midline Skin: No rashes, ulcers, or lesions noted. Turgor is good. Skin color is good. Hair and nails are without abnormalities. No bruising noted today. Neuro: grossly normal exam. Assessment and Plan Assessment & Plan (1) Chronic low back pain: Code(s): M54.50 - Low back pain, unspecified; G89.29 - Other chronic pain Qualifiers: Back pain laterality: bilateral Sciatica presence: without sciatica Qualified Code(s): M54.50 - Low back pain, unspecified; G89.29 - Other chronic pain (2) Multiple thyroid nodules: Comment: 10/2023 Estimated total number of nodules greater than or equal to 1 cm: 2. Operator/Assistant Foreman nodules are described as follows: 1. Location: Right upper pole. Size: 1.0 x 0.8 x 0.9 cm, volume 0.4 mL. Nodule characteristics: Composition: Mixed cystic and solid (1). Echogenicity: Hypoechoic (2). Shape: Not taller than wide (0). Margins: Ill-defined (0). Echogenic Foci: None (0). ACR TI-RADS total points: 3 ACR TI-RADS category: 3 2. Location: Right lower pole. Size: 2.5 x 1.5 x 1.7 cm, volume 3.1 mL. Nodule characteristics: Composition: Solid/almost completely solid (2). Echogenicity: Isoechoic (1). Shape: Not taller than wide (0). Margins: Ill-defined (0). Echogenic Foci: None (0). ACR TI-RADS total points: 3 ACR TI-RADS category: 3 3. Location: Left mid pole. Size: 0.3 x 0.2 x 0.3 cm, volume 0.009 mL. Nodule characteristics: Composition: Solid (2). Echogenicity: Hyperechoic (1). Shape: Not taller than wide (0). Margins: Ill-defined (0). Echogenic Foci: None (0). ACR TI-RADS total points: 3 ACR TI-RADS category: 3 NODES: No lymphadenopathy is seen in the tissue surrounding the thyroid gland. US/US thyroid IMPRESSION: Bilateral thyroid nodules, largest 2.5 cm right lower TR3 nodule. Recommend followup ultrasound in 12 months. Code(s): E04.2 - Nontoxic multinodular goiter (3) Osteopenia: Comment: 10/2023 femur, repeat 5 years Code(s): M85.80 - Other specified disorders of bone density and structure, unspecified site Qualifiers: Osteopenia location: femoral neck Laterality: unspecified laterality Qualified Code(s): M85.859 - Other specified disorders of bone density and structure, unspecified thigh (4) Dysphagia: Comment: Uncertain of the cause at this time. Incidental finding of thyromegaly on exam. May be related to this. In addition to the thyroid ultrasound,. She may benefit from a barium swallow or perhaps a referral to GI. We will wait until the Endo referral is complete before placing any additional orders. Code(s): R13.10 - Dysphagia, unspecified Qualifiers: Dysphagia type: oropharyngeal phase Qualified Code(s): R13.12 - Dysphagia, oropharyngeal phase (5) Bruising: Comment: May be related to NSAID use.as her bruising resolved w/ cessation CBC also improved. Code(s): T14.8XXA - Other injury of unspecified body region, initial encounter Plan This note is constructed using voice recognition software. While every effort has been made to ensure accuracy in social media assistant, still errors may have been included Sometimes, these errors may affect the content or meaning of the given sentence . Total time spent caring for the patient today was 47 minutes. This includes time spent before the visit reviewing the chart, time spent during the visit, and time spent after the visit on documentation Orders: Referrals Pain Management Referral G89.29 - Other chronic pain, M54.50 - Low back pain, unspecified Medications: New calcium-vitamin D3-vitamin K 650 mg-12.5 mcg-40 mcg (Viactiv) take 1 chewable daily 1 tab PO DAILY 90 tabs 2RF Discontinued celecoxib (Celebrex) Discontinued Reason: Doctor's Order 100 mg PO BID PRN 180 caps 0RF pain Coding Level of Care Code Est Pt Level 5 (21314) Complex EM visit Add On G2211 Diagnoses Chronic bilateral low back pain without sciatica M54.50; G89.29 Back pain laterality: bilateral Sciatica presence: without sciatica Multiple thyroid nodules E04.2 Osteopenia of neck of femur, unspecified laterality M85.859 Osteopenia location: femoral neck Laterality: unspecified laterality Oropharyngeal dysphagia R13.12 Dysphagia type: oropharyngeal phase Bruising T14.8XXA
[2023-12-01 09:01] VITALS: BP 128/74; PULSE 68; TEMP 36.5; O2SAT 98
== END 2023-12-01 09:42 | disposition home or self-care (01) ==
PROVIDERS: PCP Nurse Practitioner Family; Visit Provider Nurse Practitioner Family
DX: M54.50 Low back pain, unspecified (principal); G89.29 Other chronic pain; E04.2 Nontoxic multinodular goiter; M85.859 Other specified disorders of bone density and structure, unspecified thigh; R13.12 Dysphagia, oropharyngeal phase; T14.8XXA Other injury of unspecified body region, initial encounter
CPT/HCPCS: 99215; G2211

== ENCOUNTER 2023-12-01 09:31 | Outpatient (REF) | payer OTHER, SELFPAY ==
[2023-12-01 11:10] LABS: Baso%MD 0.7 %; Eos%MD 0.9 %; Hematocrit 41.3 % (37.0-47.0); Hemoglobin 13.8 g/dl (12.0-16.0); IG%MD 0.1 %; Lymph%MD 31.3 %; Mean Corpuscular HGB Conc 33.4 g/dl (31.0-35.0); Mean Corpuscular Hemoglobin 29.5 pg (27.0-33.0); Mean Corpuscular Volume 88.2 fL (80.0-98.0); Mean Platelet Volume 9.5 fL (9.4-12.3); Mono%MD 9.3 %; Neut%MD 57.7 %; Platelet Count 342 X10*3/uL (160-400); Red Blood Count 4.68 X10*6/uL (4.20-5.50); Red Cell Distribution Width 13.2 % (11.0-16.0); White Blood Count 6.7 X10*3/uL (4.8-10.8)
[2023-12-01 14:09] LABS: Band Neutrophils Percent 2 % (3-5); Basophils Abs Manual 0.1 X10*3/uL (0.0-0.2); Basophils Percent Manual 1 % (0-2); Lymphocytes Absolute Manual 2.7 X10*3/uL (1.2-4.9); Lymphocytes Percent Manual 40 % (20-40); Monocytes Absolute Manual 0.1 X10*3/uL (0.1-1.2); Monocytes Percent Manual 2 % (2-11); Neutrophils Absolute Manual 3.8 X10*3/uL (2.0-8.3); Neutrophils Percent Manual 55 % (45-73)
[2023-12-01 14:10] LABS: Large Platelet PRESENT; Platelet Estimate NORMAL (NORMAL); Platelet Morphology Comment NOTED; RBC Morphology NORMAL
== END 2023-12-01 09:32 | disposition home or self-care (01) ==
LOC: HO.WFDLDS 09:31
PROVIDERS: Visit Provider Nurse Practitioner Family
DX: T14.8XXA Other injury of unspecified body region, initial encounter (principal)
CPT/HCPCS: 36415; 85007; 85027

== ENCOUNTER 2023-12-15 08:43 | Outpatient (AMB) | payer OTHER, SELFPAY ==
--- NOTE | 2023-12-15 08:45 | MHC.OFFVIS ---
Vital Signs 12/15/23 08:46 Height 5 ft 3 in Weight 157 lb BMI 27.8 BP 140/84 H Blood Pressure Location Rt brachial Position Sitting Pulse 73 Pulse Source Pulse Oximeter Pulse Oximetry (%) 97 Oxygen Delivery Method Room Air Intake Visit Reasons: Low back pain, unspecified Allergies ibuprofen Adverse Reaction (Mild, Verified 12/15/23 08:48) Unknown cyclobenzaprine Adverse Reaction (Unknown, Verified 12/15/23 08:48) rapid heart rate Medication List - Last Reconciled 12/15/23 by Shannan Oakes calcium-vitamin D3-vitamin K 650 mg-12.5 mcg-40 mcg (Viactiv) 1 tab PO DAILY lidocaine 5% 1 patch topical DAILY HPI Comments Details: Brook is a very pleasant 48-year-old female who presents to the office today for evaluation management of her chronic lower back pain. Endorses right lower back pain for approximately 3 years. Pain radiates down the right lower extremity to the foot She has completed physical therapy which did not improve her pain. She continues with home exercise program. Manual manipulation by chiropractor did not improve her pain. Pain recently exacerbated by discontinuation of her nonsteroidal anti-inflammatory medications. They were previously prescribed by her PCP but most recent workup she states after lab work and reports of increased bruising these were discontinued. She was trialed on Celebrex but did not find it helpful so that has also been discontinued. 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 Pain is also exacerbated by bending, twisting, moving and going up and downstairs. Pain with forward flexion, worse with extension In terms of muscle damage condition is described as stabbing, shooting, pinching, pins and needles Pain is negatively impacting patient's enjoyment life, general activity, work, sleep ability to function normally Denies red flag symptoms including new loss of bowel, bladder or saddle anesthesia Denies current use of anticoagulants Denies use of nicotine, tobacco, alcohol or illicit substances Denies implantable devices, pacemaker defibrillator FORMERLY [facility], [facility] Medical History (Updated 12/15/23 @ 09:17 by Sobia Payne, COMMERCIAL FISHER, HAND EXPANSION ENVELOPE MAKER) Lumbar radiculopathy Lumbar muscle pain Lower thoracic back pain Bilateral sciatica Muscle strain of chest wall No pertinent past medical history Surgical History (Updated 10/21/23 @ 13:25 by MELQUIADES Amador) No pertinent past surgical history Social History Housing: House Patient Tobacco Use Status: Never used Tobacco e-Cigarette/Vaping Use: Never Used Second Hand Smoke Exposure: Yes service: No Current occupational status: employed 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 Answers questions appropriately. Fully engaged in examination. Skin: warm, dry, intact HEENT: Normocephalic. Hearing intact. Cardiac: External chest normal in appearance. Respiratory: No cough, audible wheezing or stridor. Abdomen: without gross distension. Abdomen soft nontender, no guarding. No CVA tenderness MS: No obvious swelling or deformities. Able to transition from sit to stand unassisted. Ambulates with bilaterally normal heel strike and toe off Tenderness to palpation over right lumbar musculature Nontender over midline lumbar vertebrae or lumbar paraspinal muscles SLR positive on the right Negative footdrop, negative clonus Range of motion limited secondary to pain. Extension to 10 degrees, forward flexion to 60 degrees. Pain worse with extension Nontender over bilateral PSIS Neurological: Oriented to person, place, time and situation. Thought process intact. No gait abnormalities appreciated. Psychiatric: Appropriate mood and affect. Good judgment and insight. Assessment & Plan Assessment & Plan (1) Lumbar spondylosis: Code(s): M47.816 - Spondylosis without myelopathy or radiculopathy, lumbar region Category: Medical (2) Lumbar radiculopathy: Code(s): M54.16 - Radiculopathy, lumbar region Category: Medical (3) Lumbar muscle pain: Code(s): M79.18 - Myalgia, other site Category: Medical Plan Brook is a very pleasant 48-year-old female who presented to the office today for evaluation management of her chronic right lower back pain. History, physical exam and provocative testing consistent with right lumbar radiculopathy and lumbar spondylosis X-ray for evaluation MRI lumbar spine without contrast ordered to evaluate for neural compromise Refill sent on Methocarbamol 500 mg p.o. t.i.d., patient advised on cautions for use. No driving while taking this medication may cause drowsiness. Do not take with other CAUSTIC CRESYLATE SHIFT SUPERINTENDENT depressants. Unfortunately patient is unable to take nonsteroidal anti-inflammatory medications, continue with Tylenol as needed All questions and concerns were answered, patient agrees with the plan Follow-up after imaging, sooner if needed Orders: Orders MR lumbar spine wo con Today M54.16 - Radiculopathy, lumbar region XR lumbar spine 4V min Today M47.816 - Spondylosis without myelopathy or radiculopathy, lumbar region Medications: New methocarbamol No driving while taking this medication. Do no take with alcohol or other CAUSTIC CRESYLATE SHIFT SUPERINTENDENT Depressants 500 mg PO TID PRN 90 tabs 1RF muscle spasm Coding Level of Care Code New Pt Level 4 (91532) Diagnoses Lumbar spondylosis M47.816 Lumbar radiculopathy M54.16 Lumbar muscle pain M79.18
[2023-12-15 08:46] VITALS: BP 140/84; PULSE 73; O2SAT 97; BMI 27.8
== END 2023-12-15 09:18 | disposition home or self-care (01) ==
PROVIDERS: PCP Nurse Practitioner Family; Visit Provider Registered Nurse Emergency
DX: M47.816 Spondylosis without myelopathy or radiculopathy, lumbar region (principal); M54.16 Radiculopathy, lumbar region; M79.18 Myalgia, other site
CPT/HCPCS: 99204

== ENCOUNTER → 2023-12-15 08:43 | Outpatient (BNVA) | payer OTHER, SELFPAY | PROVIDERS: PCP Nurse Practitioner Family; Visit Provider Registered Nurse Emergency | DX: M47.26 Other spondylosis with radiculopathy, lumbar region (principal); M79.18 Myalgia, other site | CPT/HCPCS: 99202 ==

== ENCOUNTER 2023-12-22 07:29 | Outpatient (REF) | payer OTHER, SELFPAY ==
--- NOTE | ~2023-12-22 | XR_ITS ---
EXAMINATION: XR LUMBOSACRAL SPINE WITH OBLIQUES CLINICAL INFORMATION: Spondylosis without myelopathy or radiculopathy. COMPARISON: X-ray lumbosacral spine May 2019. TECHNIQUE: AP, both oblique, and lateral views of the lumbar spine. Lateral view of the lumbosacral junction. FINDINGS: Vertebral bodies normally aligned with normal height. There are mild degenerative disc changes present at the L1-L2 and L3-L4 levels manifested by endplate osteophytes without disc space narrowing. This is slightly progressed compared to prior. There is no fracture. Facets unremarkable. Partially visualized pelvis normal. Incidental note made of radiopaque intrauterine device. XR/XR lumbar spine 4V min IMPRESSION: Mild spondylosis of lumbosacral spine slightly progressed compared to prior.
== END 2023-12-22 07:30 | disposition home or self-care (01) ==
LOC: HO.XRAY 07:29
PROVIDERS: PCP Nurse Practitioner Family; Visit Provider Registered Nurse Emergency
DX: M47.816 Spondylosis without myelopathy or radiculopathy, lumbar region (principal)
CPT/HCPCS: 72110

== ENCOUNTER 2023-12-26 05:26 | Emergency (ER) | payer OTHER, SELFPAY ==
--- NOTE | ~2023-12-26 | XR_ITS ---
EXAMINATION: XR HAND, RIGHT CLINICAL INFORMATION: Injury at work COMPARISON: None available. TECHNIQUE: PA, lateral, and oblique views of the right hand. FINDINGS: There is a minimally displaced transverse fracture through the distal phalanx of the fourth digit, in the region of the base of the tuft. There is slight volar angulation of the distal fragment. Remaining osseous structures appear intact. Articular alignment is anatomic. There is soft tissue irregularity/swelling along the volar aspect of the third digit near the head of the middle phalanx along with suspected trace soft tissue gas suspicious for acute injury. XR/XR hand RT min 3V IMPRESSION: 1. Minimally displaced fracture of the distal phalanx of the fourth digit. 2. Soft tissue injury along the volar aspect of the third digit, at the level of the head of the middle phalanx.
[2023-12-26 05:30] VITALS: BP 180/107; PULSE 101; RESP 16; TEMP 36.7; O2SAT 98; BMI 27.5
[2023-12-26] MEDS: Acetaminophen 325 MG TABLET 975 MG PO (06:55)
--- NOTE | 2023-12-26 06:55 | ED_ITS ---
HPI - Extremity Problem General Chief complaint: Extremity Injury, Upper Stated complaint: right hand hurt on a lift gate at work Time Seen by Provider: 12/26/23 06:37 Source: patient and family Mode of arrival: ambulatory Limitations: no limitations History of Present Illness ED Provider: Elly PATEL HPI Narrative: This is a 51-year-old female hx Thyromegaly, osteopenia, dysphagia presenting to the emergency department with complaints of right-sided finger pain, she reports that her 2nd 3rd and 4th fingers were crushed by a lift gate at work. She reports this happened just prior to her arrival to the emergency department. She reports after this crush injury she also noted small lacerations to her fingertips. Pain is worse with movement better at rest however she still able to move all fingers. She denies numbness and tingling just reports constant throbbing and tightness to the fingers. She is not up-to-date on her tetanus vaccine. No other injury sustained from this crush injury. Denies fevers, chills, nausea, vomiting, abdominal pain, chest pain, shortness of breath, headache, vision changes, dizziness Related Data Previous Rx's ?Medication ?Instructions ?Recorded lidocaine 5 % topical patch 1 patch topical DAILY #15 ea 09/13/23 calcium 650 mg-vitamin D3 12.5 1 tab PO DAILY #90 tabs 12/01/23 mcg-vitamin K 40 mcg chewable tablet (Viactiv) methocarbamol 500 mg tablet 500 mg PO TID PRN muscle spasm #90 12/15/23 tabs acetaminophen 325 mg capsule 650 mg (2 x 325 mg) PO Q4H PRN 12/26/23 (Tylenol) pain #30 caps morphine 15 mg immediate release 15 mg PO Q6H PRN pain 5 days #10 12/26/23 tablet tabs Allergies Allergy/AdvReac Type Severity Reaction Status Date / Time ibuprofen AdvReac Mild Unknown Verified 12/26/23 05:30 cyclobenzaprine AdvReac Unknown rapid Verified 12/26/23 05:30 heart rate Review of Systems Review of Systems: Yes all other systems are reviewed and are negative PMFSH Past Medical History Attestation statement: The following information was validated with the patient. Source: old records reviewed and nursing notes reviewed Medical History Lumbar radiculopathy Lumbar muscle pain Lower thoracic back pain Bilateral sciatica Muscle strain of chest wall No pertinent past medical history Surgical History No pertinent past surgical history Social History Social History Housing: House Patient Tobacco Use Status: Never used Tobacco Smoked in Last 30 Days: No e-Cigarette/Vaping Use: Never Used Second Hand Smoke Exposure: Yes Use of substances other than those prescribed or required for medical reasons: No Advance Directives: No Advance Directives Information Provided: No Do you have a plan to hurt others: No Plan service: No Current occupational status: employed 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 Oriented X3.? No acute distress.? Head: Normocephalic, atraumatic, no step-offs or deformities Eyes: Pupils equal, round and reactive to light.? CVS: Normal heart rate and rhythm.? Pulses normal.? Respiratory: No respiratory distress.? Breath sounds normal.? Abdomen: Soft and nontender.? Skin: Skin warm and dry.? Normal skin color.? Normal skin turgor.? Extremities: No lower extremity edema.? No calf ttp. 5/5 strength to bilateral upper and lower extremities patient's fingers 2 through 4 with a ecchymosis, swelling and very small abrasions. Normal distal sensation. Normal capillary refill less than 2 seconds to bilateral upper extremities. 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 2+ radial pulses equal bilateral Back: No midline tenderness, no C-spine tenderness, full range of motion, no CVA tenderness bilaterally Neuro: Oriented X 3.? No motor deficit.? No sensory deficit. CN 2-12 intact Course Reevaluation(s) Reevaluation #1: Abrasions were covered with Dermabond. Will have her follow-up with hand specialist in a week. X-ray is revealing a distal phalanx fracture. Educated patient on diagnosis and treatment plan, answered all question, patient verbalizes understanding. At this time patient will be discharged home, advised to return with new or worsening symptoms. Educated on worrisome signs and symptoms and when to return. At this time I feel comfortable discharge home. Time: 07:03 Medications Administered Discontinued Medications Generic Name Dose Route Start Last Admin Trade Name Destinee PRN Reason Stop Dose Admin Acetaminophen 975 mg 12/26/23 06:37 12/26/23 06:55 Acetaminophen 325 Mg Tablet PO 12/26/23 06:38 975 mg ONCE ONE Administration Medical Decision Making Medical Decision Making MDM Narrative: 48 year old female presents with crush injury to right hand Physical exam 5/5 strength to bilateral upper and lower extremities patient's fingers 2 through 4 with a ecchymosis, swelling and very small abrasions. Normal distal sensation. Normal capillary refill less than 2 seconds to bilateral upper extremities. 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 2+ radial pulses equal bilateral History and physical exam concerning for crush injury with possible fracture and dislocation of phalanx. Unlikely neurovascular compromise acute threat to Ayala, compartment syndrome, arterial or venous occlusion. Plan at this time imaging, pain control Differential Diagnosis Differential Diagnoses: The differential diagnosis associated with the presentation includes History and physical exam concerning for crush injury with possible fracture and dislocation of phalanx. Unlikely neurovascular compromise acute threat to Ayala, compartment syndrome, arterial or venous occlusion. Admission/Observation Consideration of admission/observation: Escalation of care including admission/observation considered Independent Interpretation I performed an independent interpretation of an: Plain X-Ray (XR/XR hand RT min 3V IMPRESSION: 1. Minimally displaced fracture of the distal phalanx of the fourth digit. 2. Soft tissue injury along the volar aspect of the third digit, at the level of the head of the middle phalanx.) Radiology Impression Discussion of test interpretation with radiology: I have reviewed the radiologist's reading. External Record Review External record reviewed: Inpatient record, Office record, Outpatient record, Prior outpatient labs, Prior outpatient radiology, Primary care record and Outside ED record Prescription Management I considered prescription management with: Pain Medication (narcotic - safe rx taking discussed with patient ) Chronic Conditions Patient?s care impacted by: Other (Thyromegaly, osteopenia, dysphagia) Discharge Plan Discharge Clinical Impression: Phalanx, distal fracture of finger, Crushing injury of finger(s) Patient Disposition: Home, Self-Care Instructions: Finger Fracture (ED) Additional Instructions: Take your medications as prescribed. If you were prescribed antibiotics today, it is important that you take your medication to their entirety, do not skip any doses, do not finish them early. Follow-up with your primary care provider this week. Return to the emergency department with new or worsening symptoms. Such as fevers, chills, chest pain, shortness of breath, nausea, vomiting, dizziness, headache, vision changes, lethargy In case of emergency call 911 A narcotic has been sent to your pharmacy please take this as prescribed. Do not take more than the prescribed dose. Narcotic medications can cause addiction. Please do not mix them with alcohol. Do not take them while driving or operating machinery. Do not take them with any other narcotics. Do not share them with friends or family. They can cause constipation. Take them only for severe pain. You can take Tylenol to supplement morphine. For [id number] pain you should take Tylenol, for moderate to severe pain take morphine XR/XR hand RT min 3V IMPRESSION: 1. Minimally displaced fracture of the distal phalanx of the fourth digit. 2. Soft tissue injury along the volar aspect of the third digit, at the level of the head of the middle phalanx. FINDINGS: There is a minimally displaced transverse fracture through the distal phalanx of the fourth digit, in the region of the base of the tuft. There is slight volar angulation of the distal fragment. Remaining osseous structures appear intact. Articular alignment is anatomic. There is soft tissue irregularity/swelling along the volar aspect of the third digit near the head of the middle phalanx along with suspected trace soft tissue gas suspicious for acute injury. Prescriptions: New morphine 15 mg tablet 15 mg PO Q6H PRN (Reason: pain) 5 Days Qty: 10 0RF Rx Instructions: Partial Fill upon patient request. acetaminophen [Tylenol] 325 mg capsule 650 mg PO Q4H PRN (Reason: pain) Qty: 30 0RF No Action lidocaine 5 % adhesive patch,medicated 1 patch topical DAILY Qty: 15 0RF Rx Instructions: leave on most painful area for up to 12 hrs calcium-vitamin D3-vitamin K [Viactiv] 650 mg-12.5 mcg-40 mcg tablet,chewable 1 tab PO DAILY Qty: 90 2RF Rx Instructions: take 1 chewable daily methocarbamol 500 mg tablet 500 mg PO TID PRN (Reason: muscle spasm) Qty: 90 1RF Rx Instructions: No driving while taking this medication. Do no take with alcohol or other FLYING I INSTRUCTOR Depressants Referrals: Shantell Thompson, [facility] [Primary Care Provider] - 2 days Stand Alone Forms: Work/School Release Print Language: Tamazight
[2023-12-26] MEDS: Morphine Sulfate Immed Release 15 MG TABLET PO (06:57)
--- NOTE | 2023-12-26 07:06 | PC.NURSE ---
report given to Grace SYED
--- NOTE | 2023-12-26 07:36 | PC.NURSE ---
splint applied to 4th digit on right hand by tech. pt tolerated well.
[2023-12-26 07:45] VITALS: BP 155/93; PULSE 90; RESP 16; TEMP 36.8; O2SAT 96
[2023-12-26] MEDS: Diphth,Pertus(ACell),Tet Adult 0.5 ML SYRINGE IM (07:45)
[2023-12-26 08:09] VITALS: BP 155/93; PULSE 90; RESP 16; TEMP 36.8; O2SAT 96
== END 2023-12-26 08:09 | disposition home or self-care (01) ==
PROVIDERS: Emergency Provider Emergency Medicine; PCP Nurse Practitioner Family
DX: S62.634A Displaced fracture of distal phalanx of right ring finger, initial encounter for closed fracture (principal); S62.91XA Unspecified fracture of right hand, initial encounter for closed fracture; S60.221A Contusion of right hand, initial encounter; S60.511A Abrasion of right hand, initial encounter; M79.641 Pain in right hand; X50.0XXA Overexertion from strenuous movement or load, initial encounter; X50.9XXA Other and unspecified overexertion or strenuous movements or postures, initial encounter; Y93.89 Activity, other specified; Y92.89 Other specified places as the place of occurrence of the external cause; Y99.0 Civilian activity done for income or pay; Z23 Encounter for immunization
CPT/HCPCS: 29130; 73130; 90471; 90715; 99284

== ENCOUNTER 2023-12-29 15:30 | Outpatient (AMB) | payer OTHER, SELFPAY ==
[2023-12-29 15:35] VITALS: BP 152/86; PULSE 80; BMI 28.5
--- NOTE | 2023-12-29 15:35 | A.OFFVIS_ITS ---
Vital Signs 12/29/23 15:35 Height 5 ft 3 in Weight 160 lb 14.999 oz BMI 28.5 BP 152/86 H Blood Pressure Location Lt brachial Position Sitting Pulse 80 Pulse Source Pulse Oximeter Intake Visit Reasons: Nontoxic multinodular goiter Intake Note: New patient present today for Nontoxic multinodular goiter office visit. Credit Office Manager Required: No Accompanied by: Self / Same As Patient Allergies ibuprofen Adverse Reaction (Mild, Verified 12/29/23 15:39) Unknown cyclobenzaprine Adverse Reaction (Unknown, Verified 12/29/23 15:39) rapid heart rate Medication List - Last Reconciled 12/29/23 by Chilango Ibarra MD acetaminophen (Tylenol) 650 mg (2 x 325 mg) PO Q4H PRN calcium-vitamin D3-vitamin K 650 mg-12.5 mcg-40 mcg (Viactiv) 1 tab PO DAILY cephalexin 500 mg PO Q6H 10 days doxycycline hyclate 100 mg PO BID 10 days lidocaine 5% 1 patch topical DAILY methocarbamol 500 mg PO TID PRN morphine 15 mg PO Q6H PRN 5 days HPI Comments Details: 48 YO F with who is seen in consultation for multinodular thyroid at the request of PCP. Was initially diagnosed with multinodular thyroid in recently with thyroid US revealing see below . No dysphagia or hoarseness of voice. Denies sensation of swelling in the neck or difficulty breathing while lying flat. Denies any tenderness in the neck. Denies any palpitations, tremors, weight loss, frequent bowel movements. Denies any ocular complaints, blurred or double vision. Denies hair loss, dry skin, heat or cold intolerance, weight gain, confusion. Denies any history of head or neck irradiation. Denies any family history of thyroid cancer but hx of thyroid dx . [Had] biopsy of nodules in the past. Thyroid US:10/21/2023 1. Location: Right upper pole. Size: 1.0 x 0.8 x 0.9 cm, volume 0.4 mL. Nodule characteristics: Composition: Mixed cystic and solid (1). Echogenicity: Hypoechoic (2). Shape: Not taller than wide (0). Margins: Ill-defined (0). Echogenic Foci: None (0). ACR TI-RADS total points: 3 ACR TI-RADS category: 3 2. Location: Right lower pole. Size: 2.5 x 1.5 x 1.7 cm, volume 3.1 mL. Nodule characteristics: Composition: Solid/almost completely solid (2). Echogenicity: Isoechoic (1). Shape: Not taller than wide (0). Margins: Ill-defined (0). Echogenic Foci: None (0). ACR TI-RADS total points: 3 ACR TI-RADS category: 3 3. Location: Left mid pole. Size: 0.3 x 0.2 x 0.3 cm, volume 0.009 mL. Nodule characteristics: Composition: Solid (2). Echogenicity: Hyperechoic (1). Shape: Not taller than wide (0). Margins: Ill-defined (0). Echogenic Foci: None (0). ACR TI-RADS total points: 3 ACR TI-RADS category: 3 NODES: No lymphadenopathy is seen in the tissue surrounding the thyroid gland. US/US thyroid IMPRESSION: Bilateral thyroid nodules, largest 2.5 cm right lower TR3 nodule. Recommend followup ultrasound in 12 months. 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 Thyroid gland measure 15 gms . No nodules or tenderness palpated. There is no cervical adenopathy palpated. Lungs CTA. Heart S1, S2 Reg R/R -M/R/G. Abdominal exam benign. Skin exam reveals absence of dryness or thyroid dermopathy or vitiligo. Nail exam reveals absence of thyroid acropachy or oncholysis. Ne urologic exam reveals 2+ reflexes . Muscle Strength is 5/5 proximally. There are no tremors in upper extremities. Assessment & Plan Assessment & Plan (1) Multiple thyroid nodules: Comment: 10/2023 Estimated total number of nodules greater than or equal to 1 cm: 2. Board Runner nodules are described as follows: 1. Location: Right upper pole. Size: 1.0 x 0.8 x 0.9 cm, volume 0.4 mL. Nodule characteristics: Composition: Mixed cystic and solid (1). Echogenicity: Hypoechoic (2). Shape: Not taller than wide (0). Margins: Ill-defined (0). Echogenic Foci: None (0). ACR TI-RADS total points: 3 ACR TI-RADS category: 3 2. Location: Right lower pole. Size: 2.5 x 1.5 x 1.7 cm, volume 3.1 mL. Nodule characteristics: Composition: Solid/almost completely solid (2). Echogenicity: Isoechoic (1). Shape: Not taller than wide (0). Margins: Ill-defined (0). Echogenic Foci: None (0). ACR TI-RADS total points: 3 ACR TI-RADS category: 3 3. Location: Left mid pole. Size: 0.3 x 0.2 x 0.3 cm, volume 0.009 mL. Nodule characteristics: Composition: Solid (2). Echogenicity: Hyperechoic (1). Shape: Not taller than wide (0). Margins: Ill-defined (0). Echogenic Foci: None (0). ACR TI-RADS total points: 3 ACR TI-RADS category: 3 NODES: No lymphadenopathy is seen in the tissue surrounding the thyroid gland. US/US thyroid IMPRESSION: Bilateral thyroid nodules, largest 2.5 cm right lower TR3 nodule. Recommend followup ultrasound in 12 months. Code(s): E04.2 - Nontoxic multinodular goiter Category: Medical Plan: This is a 48-year-old female with a history of multinodular goiter with dominant right lower pole nodule. She appears to be clinically and biochemically euthyroid Plan is to have the patient see Dr. Lawrence for possible FNA of right lower pole dominant nodule. Coding Level of Care Code New Pt Level 4 (01101) Diagnoses Multiple thyroid nodules E04.2
== END 2023-12-29 15:54 | disposition home or self-care (01) ==
PROVIDERS: PCP Nurse Practitioner Family; Visit Provider Internal Medicine Endocrinology, Diabetes & Metabolism
DX: E04.2 Nontoxic multinodular goiter (principal)
CPT/HCPCS: 99204

== ENCOUNTER → 2023-12-29 15:30 | Outpatient (BNVA) | payer OTHER, SELFPAY | PROVIDERS: PCP Nurse Practitioner Family; Visit Provider Internal Medicine Endocrinology, Diabetes & Metabolism | DX: E04.2 Nontoxic multinodular goiter (principal) | CPT/HCPCS: 99202 ==

== ENCOUNTER 2024-02-11 07:21 | Outpatient (REF) | payer OTHER, SELFPAY ==
--- NOTE | ~2024-02-11 | MR_ITS ---
EXAMINATION: MR LUMBAR SPINE WITHOUT CONTRAST CLINICAL INFORMATION: Lumbar radiculopathy. COMPARISON: Lumbar spine radiographs from 12/22/2023. TECHNIQUE: MRI of the lumbar spine was obtained using routine sequences without contrast. FINDINGS: Normal anatomic alignment. Mild degenerative disc disease at L1-L2 and from L3-L5. Associated mixed Modic type discogenic endplate changes including minimal Modic type I discogenic edema at L1-L2. No additional suspicious marrow edema. The vertebral body heights are well-maintained. The conus medullaris terminates at the level of L1. The distal spinal cord is normal in appearance. No significant abnormalities of the paraspinal musculature. Limited evaluation of the intra-abdominal structures without significant abnormalities. The abdominal aorta is of normal contour and caliber. AXIAL SPINAL LEVELS: L1-L2: Shallow diffuse disc bulge with superimposed left subarticular disc protrusion. There is no facet joint arthropathy. There is no neural foraminal stenosis. There is no spinal canal stenosis. L2-L3: Normal annular contour. There is mild bilateral facet joint arthropathy. There is no neural foraminal stenosis. There is no spinal canal stenosis. L3-L4: Mild diffuse disc bulge. There is mild bilateral facet joint arthropathy. There is mild left and no right neural foraminal stenosis. There is no spinal canal stenosis. L4-L5: Mild diffuse disc bulge. There is mild bilateral facet joint arthropathy. There is mild bilateral neural foraminal stenosis. There is no spinal canal stenosis. L5-S1: Normal annular contour. There is mild bilateral facet joint arthropathy. There is no neural foraminal stenosis. There is no spinal canal stenosis. 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 Most notably, there are mild neural foraminal narrowings at L3-L4 and L4-L5. No overt spinal canal stenosis or nerve root compression. Electronically signed by: Meño Rahman DO 03/05/2024 02:26 AM EDT
== END 2024-02-11 07:22 | disposition home or self-care (01) ==
LOC: HO.MRI 07:21
PROVIDERS: PCP Nurse Practitioner Family; Visit Provider Registered Nurse Emergency
DX: M54.16 Radiculopathy, lumbar region (principal)
CPT/HCPCS: 72148

== ENCOUNTER 2024-03-09 08:57 | Outpatient (AMB) | payer OTHER, SELFPAY ==
[2024-03-09 08:59] VITALS: BP 112/80; PULSE 82; BMI 27.1
--- NOTE | 2024-03-09 08:59 | A.OFFVIS_ITS ---
Vital Signs 03/09/24 08:59 Height 5 ft 3 in Weight 152 lb 12.485 oz BMI 27.1 BP 112/80 Blood Pressure Location Lt brachial Position Sitting Pulse 82 Pulse Source Pulse Oximeter Intake Visit Reasons: f/u with Dr. Lawrence for FNA/CONFIRMED Intake Note: Patient present today for FNA follow up visit. 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 Required: No Accompanied by: Self / Same As Patient Allergies ibuprofen Adverse Reaction (Mild, Verified 03/09/24 09:04) Unknown cyclobenzaprine Adverse Reaction (Unknown, Verified 03/09/24 09:04) rapid heart rate Medication List - Last Reconciled 03/09/24 by Pauline Lawrence MD acetaminophen (Tylenol) 650 mg (2 x 325 mg) PO Q4H PRN calcium-vitamin D3-vitamin K 650 mg-12.5 mcg-40 mcg (Viactiv) 1 tab PO DAILY cephalexin 500 mg PO Q6H 10 days doxycycline hyclate 100 mg PO BID 10 days estradiol transdermal lidocaine 5% 1 patch topical DAILY HPI Comments Details: 49 YO F seen for fup for multinodular thyroid. HPI from prior visit Was initially diagnosed with multinodular thyroid in September 2023 on thyroid US . PCP had palpated the nodules. I reviewed the images myself in the ultrasound shows a right dominant lower pole 2.5 cm nodule, mixed cystic solid, isoechoic TR 2 category. per RUBINA this is a very low suspicion nodule with less than 3% chance of malignancy however given the size is greater than 2 cm needs to be biopsied. Other nodules the right upper 1 cm TR 3 category and the left subcentimeter nodules also noted. Labs from 10/14 normal TSH No dysphagia or hoarseness of voice. Denies sensation of swelling in the neck or difficulty breathing while lying flat. Denies any tenderness in the neck. Denies any palpitations, tremors, weight loss, frequent bowel movements. Denies any ocular complaints, blurred or double vision. Denies hair loss, dry skin, heat or cold intolerance, weight gain, confusion. Does have constipation. Denies any history of head or neck irradiation. Denies any family history of thyroid cancer Mother hx of thyroid nodules . 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 She is on HRT estrogen patches and mirena. She takes 500 units of vitamin D daily in the viactive which has 650 mg of calcium OTherwise not eating milk, cheese , yogurt due to nausea BMD October 2023 showed osteopenia of the hip per z score of -2.2 No fractures Walks daily Thyroid US:10/21/2023 1. Location: Right upper pole. Size: 1.0 x 0.8 x 0.9 cm, volume 0.4 mL. Nodule characteristics: Composition: Mixed cystic and solid (1). Echogenicity: Hypoechoic (2). Shape: Not taller than wide (0). Margins: Ill-defined (0). Echogenic Foci: None (0). ACR TI-RADS total points: 3 ACR TI-RADS category: 3 2. Location: Right lower pole. Size: 2.5 x 1.5 x 1.7 cm, volume 3.1 mL. Nodule characteristics: Composition: Solid/almost completely solid (2). Echogenicity: Isoechoic (1). Shape: Not taller than wide (0). Margins: Ill-defined (0). Echogenic Foci: None (0). ACR TI-RADS total points: 3 ACR TI-RADS category: 3 3. Location: Left mid pole. Size: 0.3 x 0.2 x 0.3 cm, volume 0.009 mL. Nodule characteristics: Composition: Solid (2). Echogenicity: Hyperechoic (1). Shape: Not taller than wide (0). Margins: Ill-defined (0). Echogenic Foci: None (0). ACR TI-RADS total points: 3 ACR TI-RADS category: 3 NODES: No lymphadenopathy is seen in the tissue surrounding the thyroid gland. US/US thyroid IMPRESSION: Bilateral thyroid nodules, largest 2.5 cm right lower TR3 nodule. Recommend followup ultrasound in 12 months. Review of systems Constitutional: no fevers, chills HEENT: no changes in vision Cardiac: No chest pain, discomfort or palpitations. Pulmonary: No SOB GI:No abdominal pain, no nausea or vomiting, no anorexia, no blood in stool : no burning micturition, dysuria or increase in urinary frequency Physical exam General: sitting comfortably in no acute distress HEENT: normocephalic/atraumatic, Neck: supple, symmetrical, palpable 2 cm thyroid nodule on right side , no dorsocervical or supraclavicular fat pads Cardiac: normal heart sounds Pulm: normal breath sounds B/L, no added breath sounds Abd: not distended, no tenderness Extremities: no edema, no signs of myxedema Neuro: AAO x3, Speech: normal, no facial droop, moving all 4 extremities PFSH Medical History Lumbar radiculopathy Lumbar muscle pain Lower thoracic back pain Bilateral sciatica Muscle strain of chest wall No pertinent past medical history Surgical History No pertinent past surgical history Social History Housing: House Patient Tobacco Use Status: Never used Tobacco e-Cigarette/Vaping Use: Never Used Second Hand Smoke Exposure: Yes service: No Current occupational status: employed 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 per RUBINA this is a very low suspicion nodule with less than 3% chance of malignancy however given the size is greater than 2 cm needs to be biopsied. Other nodules the right upper 1 cm TR 3 category and the left subcentimeter nodules also noted. CLINICAL INFORMATION: Iodine-deficiency related diffuse (endemic) goiter. COMPARISON: None available. TECHNIQUE: Linear transducer grayscale and color Doppler examination with attention to the region of the thyroid. FINDINGS: SIZE: Measurements of the thyroid lobes and nodules are given in sagittal, anteroposterior and transverse dimensions respectively. Right Thyroid Lobe: 4.6 x 1.7 x 1.6 cm, volume 6.5 mL. Parenchyma: The gland echotexture is homogeneous. Thyroid vascularity is normal. Left Thyroid Lobe: 4.6 x 1.4 x 1.2 cm, volume 4.0 mL. Parenchyma: The gland echotexture is homogeneous. Thyroid vascularity is normal. Isthmus: 0.4 cm in maximum AP dimension. Estimated total number of nodules greater than or equal to 1 cm: 2. Cytology Technologist nodules are described as follows: 1. Location: Right upper pole. Size: 1.0 x 0.8 x 0.9 cm, volume 0.4 mL. Nodule characteristics: Composition: Mixed cystic and solid (1). Echogenicity: Hypoechoic (2). Shape: Not taller than wide (0). Margins: Ill-defined (0). Echogenic Foci: None (0). ACR TI-RADS total points: 3 ACR TI-RADS category: 3 2. Location: Right lower pole. Size: 2.5 x 1.5 x 1.7 cm, volume 3.1 mL. Nodule characteristics: Composition: Solid/almost completely solid (2). Echogenicity: Isoechoic (1). Shape: Not taller than wide (0). Margins: Ill-defined (0). Echogenic Foci: None (0). ACR TI-RADS total points: 3 ACR TI-RADS category: 3 3. Location: Left mid pole. Size: 0.3 x 0.2 x 0.3 cm, volume 0.009 mL. Nodule characteristics: Composition: Solid (2). Echogenicity: Hyperechoic (1). Shape: Not taller than wide (0). Margins: Ill-defined (0). Echogenic Foci: None (0). ACR TI-RADS total points: 3 ACR TI-RADS category: 3 NODES: No lymphadenopathy is seen in the tissue surrounding the thyroid gland. US/US thyroid IMPRESSION: Bilateral thyroid nodules, largest 2.5 cm right lower TR3 nodule. Recommend followup ultrasound in 12 months. Assessment & Plan Assessment & Plan (1) Multiple thyroid nodules: Code(s): E04.2 - Nontoxic multinodular goiter Category: Medical Plan: Patient with no personal history of head or neck radiation, with no family his tory of thyroid cancer, who was diagnosed with thyroid nodules diagnosed September 2023 with ultrasound showing a right lower lobe dominant 2.5 cm nodule. Patient does not have any compressive symptoms. Normal TSH from September 2023.I reviewed the images myself in the ultrasound shows a right dominant lower pole 2.5 cm nodule, mixed cystic solid, isoechoic TR 2 category. per RUBINA this is a very low suspic ion nodule with less than 3% chance of malignancy however given the size is greater than 2 cm needs to be biopsied. Per RUBINA guidelines. Other nodules the right upper 1 cm TR 3 category and the left subcentimeter nodules also noted. I explained that it is common to have thyroid nodules. About 95% of the time these nodules are benign. However if the nodule is > 1 cm in size or suspicious on ultrasound then a fine need aspiration biopsy is recommended. We discussed that a FNAB involves 4-5 passes with a small gauge needle and material obtained is sent off for cytology.If the cytopathology is benign then the nodule will be followed annually with repeat ultrasounds. However if it is suspicious or malignant, we will need to discuss further management. Indeterminate cytology can be further investigated with repeat FNA, genetic testing or empiric lobectomy. Malignant cytology is managed with either lobectomy or total thyroidectomy. We discussed briefly that thyroid cancer is, in most patients, an indolent disease that does not affect mortality. We will arrange for FNA of the right lower lobe 2.5 cm nodule at next available opening and patient will follow up with me in clinic thereafter for results and further decision making. Plan: -arrange FNA of right lower lobe 2.5 cm thyroid nodule -follow up in 1-2 weeks after thyroid nodule FNA biopsy to discuss results (2) Osteopenia: Comment: 10/2023 femur, repeat 5 years Code(s): M85.80 - Other specified disorders of bone density and structure, unspecified site Category: Medical Qualifiers: Osteopenia location: femoral neck Laterality: left Qualified Code(s): M85.852 - Other specified disorders of bone density and structure, left thigh Plan: Patient has a history of bilateral oophorectomy in 2018 due to history of torsion, benign neoplasm per the patient. She has subsequently been placed on hormone replacement therapy with the estradiol patches and also has a Mirena IUD. Bone density done in October 2023 showed osteopenia of the right femoral neck with a Z-score of-2.2. She is on vitamin-D 500 units daily as part of her calcium supplement which is 650 mg daily she is not really taking much calcium intake and her nutrition otherwise due to having GI intolerance to dairy products. I advised her about importance of bone health with incorporating at least 1000 units of vitamin-D daily in her supplement. Also needs 1000 mg of calcium overall from diet and supplement. Also advised about the importance of weight-bearing exercise on bone health. Plan: -start taking vitamin-D 400 units in addition to the Viactiv supplement daily -incorporate 500-600 mg of calcium in your diet through not dairy products suggest fortified bread, spinach, almonds in addition to your 650 mg of calcium in supplement -30 minutes of weight-bearing exercise daily, incorporate resistance training in your lifestyle such as lifting weights, resistance bands -continue hormone replacement therapy with estrogen patch and Mirena IUD. Plan I spent 30 minutes in reviewing the record, seeing the patient and documenting in the medical record. Orders: Orders US biopsy thyroid Today E04.2 - Nontoxic multinodular goiter Patient Instructions: For your bone health Please walk daily for 30 mins at least Try doinf resistance exercises such as busying dumbells to lift, use resistance bands Start taking 400 units of vitamin D ( you can buy this over the counter) in a ddition to your Viactive [employer] sources of calcium such as spinach, almonds, fortified breads to incoriportate at least 600 mg of calcium in diet plus the viactive Continue hormone replacement therapy For your thyroid nodules We will book you for a biopsy for the right thyroid nodule and a follow up in 1- 2 weeks to discuss results Coding Level of Care Code Est Pt Level 4 (40947) Diagnoses Multiple thyroid nodules E04.2 Osteopenia of neck of left femur M85.852 Osteopenia location: femoral neck Laterality: left Time Spent (min) 30
== END 2024-03-09 09:43 | disposition home or self-care (01) ==
PROVIDERS: PCP Nurse Practitioner Family; Visit Provider Student in an Organized Health Care Education/Training Program
DX: E04.2 Nontoxic multinodular goiter (principal); M85.852 Other specified disorders of bone density and structure, left thigh
CPT/HCPCS: 99214

== ENCOUNTER → 2024-03-09 08:57 | Outpatient (BNVA) | payer OTHER, SELFPAY | PROVIDERS: PCP Nurse Practitioner Family; Visit Provider Student in an Organized Health Care Education/Training Program | DX: E04.2 Nontoxic multinodular goiter (principal); M85.852 Other specified disorders of bone density and structure, left thigh | CPT/HCPCS: 99212 ==

== ENCOUNTER 2024-03-22 10:34 | Outpatient (REF) | payer OTHER, SELFPAY ==
--- NOTE | 2024-03-22 11:16 | PCN2_ITS ---
Brief Operative Note Date of procedure: 03/22/24 Pre-op diagnosis: right lower lobe 2.5 cm thyroid nodule FNA biopsy Post-op diagnosis: same Procedure: THYROID FINE NEEDLE ASPIRATION PROCEDURE NOTE ? PROCEDURE PERFORMED: Ultrasound-guided FNA of thyroid nodule ? OPERATORS: Dr. Pauline Lawrence ? INDICATION: right lower lobe 2.5 cm thyroid nodule ; FNA performed to assess for malignancy ? DESCRIPTION OF PROCEDURE: The indications for FNA (to assess for malignancy) we re reviewed with the patient in detail. Potential complications (e.g., bleeding, infection, damage to local structures, absence of clear diagnosis after FNA) were reviewed. Alternatives to FNA including conservative observation or surgery were described. The patient understood and agreed to proceed. This was documented by the signing of the written informed consent form. A time-out was performed to confirm the patient's identity and the site of planned FNA. The nodule of interest was identified using ultrasound (14 MHz linear array probe). The site of FNA was then draped in the usual fashion and carefully cleaned and prepared using alcohol swabs. The skin at the previously-identified site of needle insertion was iced and sprayed with numbing spray. Under ultrasound guidance, _4_ passes were performed using a 1.5-inch, 25-gauge needle, and sample was obtained via capillary action. The needle tip was clearly visualized to be within the nodule at the time of sampling for _4_ of 4__ passes The patient tolerated the procedure well. There were no immediate complications. A small adhesive bandage was applied, and the patient was advised to take acetaminophen (rather than NSAIDs) for any discomfort and to report any signs of inflammation/infection or marked swelling. IMPRESSION: Technically successful ultrasound-guided fine needle aspiration of right lower lobe 2.5 cm thyroid nodule . PLAN: The patient was advised that I will provide follow-up regarding the cytology result and any subsequent plans. Pauline Lawrence MD Endocrinology Attending Condition: stable Disposition: same day
== END 2024-03-22 10:35 | disposition home or self-care (01) ==
LOC: HO.US 10:34
PROVIDERS: PCP Nurse Practitioner Family; Visit Provider Student in an Organized Health Care Education/Training Program
DX: E04.2 Nontoxic multinodular goiter (principal)
CPT/HCPCS: 10005; 88173

== ENCOUNTER → 2024-03-22 10:34 | Outpatient (BNV) | payer OTHER, SELFPAY | PROVIDERS: PCP Nurse Practitioner Family; Visit Provider Student in an Organized Health Care Education/Training Program | DX: E04.2 Nontoxic multinodular goiter (principal) | CPT/HCPCS: 10005 ==

== ENCOUNTER 2024-03-23 10:34 | Outpatient (AMB) | payer OTHER, SELFPAY ==
[2024-03-23 10:40] VITALS: BP 142/80; PULSE 89; O2SAT 97; BMI 27.5
--- NOTE | 2024-03-23 10:40 | MHC.OFFVIS ---
Vital Signs 03/23/24 10:40 Height 5 ft 3 in Weight 155 lb BMI 27.5 BP 142/80 H Blood Pressure Location Rt brachial Position Sitting Pulse 89 Pulse Source Pulse Oximeter Pulse Oximetry (%) 97 Oxygen Delivery Method Room Air Intake Visit Reasons: Discuss MRI Results Allergies ibuprofen Adverse Reaction (Mild, Verified 03/23/24 10:41) Unknown cyclobenzaprine Adverse Reaction (Unknown, Verified 03/23/24 10:41) rapid heart rate Medication List - Last Reconciled 03/23/24 by Shannan Oakes acetaminophen (Tylenol) 650 mg (2 x 325 mg) PO Q4H PRN calcium-vitamin D3-vitamin K 650 mg-12.5 mcg-40 mcg (Viactiv) 1 tab PO DAILY cephalexin 500 mg PO Q6H 10 days doxycycline hyclate 100 mg PO BID 10 days estradiol transdermal lidocaine 5% 1 patch topical DAILY HPI Comments Details: Patient presents back to the office today for follow-up, review of recent MRI MRI reviewed, results as per below Continues with 10/31 right lower back pain without radiation down her leg Pain is worse with sitting, twisting, driving and lying down Patient has completed physical therapy without improvement. She continues with home exercise program. No improvement with chiropractor, heat, ice, nonsteroidal anti-inflammatory medications, prescription medications, muscle relaxers. Initial Visit: Brook is a very pleasant 48-year-old female who presents to the office today for evaluation management of her chronic lower back pain. Endorses right lower back pain for approximately 3 years. Pain radiates down the right lower extremity to the foot She has completed physical therapy which did not improve her pain. She continues with home exercise program. Manual manipulation by chiropractor did not improve her pain. Pain recently exacerbated by discontinuation of her nonsteroidal anti-inflammatory medications. They were previously prescribed by her PCP but most recent workup she states after lab work and reports of increased bruising these were discontinued. She was trialed on Celebrex but did not find it helpful so that has also been discontinued. 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 Pain is also exacerbated by bending, twisting, moving and going up and downstairs. Pain with forward flexion, worse with extension In terms of muscle damage condition is described as stabbing, shooting, pinching, pins and needles Pain is negatively impacting patient's enjoyment life, general activity, work, sleep ability to function normally Denies red flag symptoms including new loss of bowel, bladder or saddle anesthesia Denies current use of anticoagulants Denies use of nicotine, tobacco, alcohol or illicit substances Denies implantable devices, pacemaker defibrillator [facility] Medical History Lumbar radiculopathy Lumbar muscle pain Lower thoracic back pain Bilateral sciatica Muscle strain of chest wall No pertinent past medical history Surgical History No pertinent past surgical history Social History Housing: House Patient Tobacco Use Status: Never used Tobacco e-Cigarette/Vaping Use: Never Used Second Hand Smoke Exposure: Yes service: No Current occupational status: employed 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 Answers questions appropriately. Fully engaged in examination. Skin: warm, dry, intact HEENT: Normocephalic. Hearing intact. Cardiac: External chest normal in appearance. Respiratory: No cough, audible wheezing or stridor. Abdomen: without gross distension. Abdomen soft nontender, no guarding. No CVA tenderness MS: No obvious swelling or deformities. Able to transition from sit to stand unassisted. Ambulates with bilaterally normal heel strike and toe off Tenderness to palpation over right lumbar musculature SLR negative bilaterally Nontender over bilateral PSIS Neurological: Oriented to person, place, time and situation. Thought process intact. No gait abnormalities appreciated. Psychiatric: Appropriate mood and affect. Good judgment and insight. Results Reviewed Results Reviewed: 02/11/24 MR LS FINDINGS: Normal anatomic alignment. Mild degenerative disc disease at L1-L2 and from L3-L5. Associated mixed Modic type discogenic endplate changes including minimal Modic type I discogenic edema at L1-L2. No additional suspicious marrow edema. The vertebral body heights are well-maintained. The conus medullaris terminates at the level of L1. The distal spinal cord is normal in appearance. No significant abnormalities of the paraspinal musculature. Limited evaluation of the intra-abdominal structures without significant abnormalities. The abdominal aorta is of normal contour and caliber. AXIAL SPINAL LEVELS: L1-L2: Shallow diffuse disc bulge with superimposed left subarticular disc protrusion. There is no facet joint arthropathy. There is no neural foraminal stenosis. There is no spinal canal stenosis. L2-L3: Normal annular contour. There is mild bilateral facet joint arthropathy. There is no neural foraminal stenosis. There is no spinal canal stenosis. L3-L4: Mild diffuse disc bulge. There is mild bilateral facet joint arthropathy. There is mild left and no right neural foraminal stenosis. There is no spinal canal stenosis. L4-L5: Mild diffuse disc bulge. There is mild bilateral facet joint arthropathy. There is mild bilateral neural foraminal stenosis. There is no spinal canal stenosis. L5-S1: Normal annular contour. There is mild bilateral facet joint arthropathy. There is no neural foraminal stenosis. There is no spinal canal stenosis. 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 Most notably, there are mild neural foraminal narrowings at L3-L4 and L4-L5. No overt spinal canal stenosis or nerve root compression. Assessment & Plan Assessment & Plan (1) Lumbar spondylosis: Code(s): M47.816 - Spondylosis without myelopathy or radiculopathy, lumbar region Category: Medical (2) Lumbar muscle pain: Code(s): M79.18 - Myalgia, other site Category: Medical Plan Brook presented back to the office today for follow-up right lower back pain, review of recent MRI MRI reviewed, results as per above Discussed options for treatment including diagnostic interventional testing, epidural steroid injections, peripheral nerve stimulation with Sprint, RFA and more permanent neuromodulation. Will schedule for fluoroscopy guided diagnostic right L3-L4 DR L5 medial branch blocks with local anesthetic. All questions and concerns were answered, patient agrees with the plan. Follow-up after imaging, sooner if needed Coding Level of Care Code Est Pt Level 3 (28289) Complex EM visit Add On G2211 Diagnoses Lumbar spondylosis M47.816 Lumbar muscle pain M79.18
== END 2024-03-23 11:03 | disposition home or self-care (01) ==
LOC: HO.PMC 10:34
PROVIDERS: PCP Nurse Practitioner Family; Visit Provider Registered Nurse Emergency
DX: M47.816 Spondylosis without myelopathy or radiculopathy, lumbar region (principal); M79.18 Myalgia, other site
CPT/HCPCS: 99213; G2211

== ENCOUNTER → 2024-03-23 10:34 | Outpatient (BNVA) | payer OTHER, SELFPAY | PROVIDERS: PCP Nurse Practitioner Family; Visit Provider Registered Nurse Emergency | DX: M47.816 Spondylosis without myelopathy or radiculopathy, lumbar region (principal); M79.18 Myalgia, other site | CPT/HCPCS: 99212 ==

== ENCOUNTER 2024-04-14 07:55 | Outpatient (AMB) | payer OTHER, SELFPAY ==
[2024-04-14 07:57] VITALS: BP 106/70; PULSE 67; BMI 27.0
--- NOTE | 2024-04-14 07:57 | A.OFFVIS_ITS ---
Vital Signs 3 04/14/24 07:57 Height 5 ft 3 in Weight 152 lb 8.958 oz BMI 27.0 BP 106/70 Blood Pressure Location Lt brachial Position Sitting Pulse 67 Pulse Source Pulse Oximeter Intake Visit Reasons: Biopsy f/u-confirmed Intake Note: Patient is present today for biopsy follow up visit. Courtroom Reporter Required: No Accompanied by: Self / Same As Patient Allergies ibuprofen Adverse Reaction (Mild, Verified 04/14/24 08:00) Unknown cyclobenzaprine Adverse Reaction (Unknown, Verified 04/14/24 08:00) rapid heart rate Medication List - Last Reconciled 04/14/24 by Pauline Lawrence MD acetaminophen (Tylenol) 650 mg (2 x 325 mg) PO Q4H PRN calcium-vitamin D3-vitamin K 650 mg-12.5 mcg-40 mcg (Viactiv) 1 tab PO DAILY cephalexin 500 mg PO Q6H 10 days cholecalciferol (vitamin D3) 25 mcg PO DAILY doxycycline hyclate 100 mg PO BID 10 days estradiol transdermal lidocaine 5% 1 patch topical DAILY HPI Comments Details: 49 YO F seen for fup for multinodular thyroid. HPI from prior visit Was initially diagnosed with multinodular thyroid in September 2023 on thyroid US . PCP had palpated the nodules. I reviewed the images myself in the ultrasound shows a right dominant lower pole 2.5 cm nodule, mixed cystic solid, isoechoic TR 2 category. per RUBINA this is a very low suspicion nodule with less than 3% chance of malignancy however given the size is greater than 2 cm needs to be biopsied. Other nodules the right upper 1 cm TR 3 category and the left subcentimeter nodules also noted. Labs from 10/14 normal TSH No dysphagia or hoarseness of voice. Denies sensation of swelling in the neck or difficulty breathing while lying flat. Denies any tenderness in the neck. Denies any palpitations, tremors, weight loss, frequent bowel movements. Denies any ocular complaints, blurred or double vision. Denies hair loss, dry skin, heat or cold intolerance, weight gain, confusion. Does have constipation. Denies any history of head or neck irradiation. Denies any family history of thyroid cancer Mother hx of thyroid nodules . 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 She is on HRT estrogen patches and mirena. She takes 500 units of vitamin D daily in the viactive which has 650 mg of calcium OTherwise not eating milk, cheese , yogurt due to nausea BMD October 2023 showed osteopenia of the hip per z score of -2.2 No fractures Walks daily Review of systems Constitutional: no fevers, chills HEENT: no changes in vision Cardiac: No chest pain, discomfort or palpitations. Pulmonary: No SOB GI:No abdominal pain, no nausea or vomiting, no anorexia, no blood in stool : no burning micturition, dysuria or increase in urinary frequency Physical exam General: sitting comfortably in no acute distress HEENT: normocephalic/atraumatic, Neck: supple, symmetrical, palpable 2 cm thyroid nodule on right side , no dorsocervical or supraclavicular fat pads Cardiac: normal heart sounds Pulm: normal breath sounds B/L, no added breath sounds Abd: not distended, no tenderness Extremities: no edema, no signs of myxedema Neuro: AAO x3, Speech: normal, no facial droop, moving all 4 extremities Laboratory Tests 08/07/21 10/12/23 11:25 10:18 TSH 1.06 1.84 Thyroid US:10/21/2023 1. Location: Right upper pole. Size: 1.0 x 0.8 x 0.9 cm, volume 0.4 mL. Nodule characteristics: Composition: Mixed cystic and solid (1). Echogenicity: Hypoechoic (2). Shape: Not taller than wide (0). Margins: Ill-defined (0). Echogenic Foci: None (0). ACR TI-RADS total points: 3 ACR TI-RADS category: 3 2. Location: Right lower pole. Size: 2.5 x 1.5 x 1.7 cm, volume 3.1 mL. Nodule characteristics: Composition: Solid/almost completely solid (2). Echogenicity: Isoechoic (1). Shape: Not taller than wide (0). Margins: Ill-defined (0). Echogenic Foci: None (0). ACR TI-RADS total points: 3 ACR TI-RADS category: 3 3. Location: Left mid pole. Size: 0.3 x 0.2 x 0.3 cm, volume 0.009 mL. Nodule characteristics: Composition: Solid (2). Echogenicity: Hyperechoic (1). Shape: Not taller than wide (0). Margins: Ill-defined (0). Echogenic Foci: None (0). ACR TI-RADS total points: 3 ACR TI-RADS category: 3 NODES: No lymphadenopathy is seen in the tissue surrounding the thyroid gland. US/US thyroid IMPRESSION: Bilateral thyroid nodules, largest 2.5 cm right lower TR3 nodule. Recommend followup ultrasound in 12 months. 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 Patient does not have any compressive symptoms. Normal TSH from September 2023.I reviewed the images myself in the ultrasound shows a right dominant lower pole 2.5 cm nodule, mixed cystic solid, Other nodules the right upper 1 cm TR 3 category and the left subcentimeter nodules also noted. 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 Overexpression of normal c-myc and c-fos genes, as well as mutations of?HRAS,?NRAS, and?KRAS?dipesh-oncogenes, are found in follicular adenomas, follicular cancers, and occasionally papillary cancers . These abnormalities may confer a growth-promoting effect that is not specific for tumor type. I explained to the patient, that given she had detection of suspicious mutation, next steps involve evaluation for lobectomy versus total thyroidectomy. And that I will place a referral to Dr. Rohan Busby in [facility]. Also explained to her risk of complication of hypocalcemia/hypoparathyroidism, and that we have to ensure she has good vitamin-D levels prior to surgery. We will check her vitamin-D level. She is already taking a Viactiv supplement which has 500 units of vitamin-D, I have asked her to take an additional 1000 units daily. Plan: -referral placed to [facility] Endocrine surgery Dr. Rohan Busby -check vitamin-D levels -start vitamin-D 1000 units daily in addition to 500 units in the Viactiv supplement -follow up in 2 months (2) Osteopenia: Comment: 10/2023 femur, repeat 5 years Code(s): M85.80 - Other specified disorders of bone density and structure, unspecified site Category: Medical Qualifiers: Osteopenia location: femoral neck Laterality: left Qualified Code(s): M85.852 - Other specified disorders of bone density and structure, left thigh Plan: Patient has a history of bilateral oophorectomy in 2018 due to history of torsion, benign neoplasm per the patient. She has subsequently been placed on hormone replacement therapy with the estradiol patches and also has a Mirena IUD. Bone density done in October 2023 showed osteopenia of the right femoral neck with a Z-score of-2.2. She is on vitamin-D 500 units daily as part of her calcium supplement which is 650 mg daily she is not really taking much calcium intake and her nutrition otherwise due to having GI intolerance to dairy products. I advised her about importance of bone health with incorporating at least 1000 units of vitamin-D daily in her supplement. Also needs 1000 mg of calcium overall from diet and supplement. Also advised about the importance of weight-bearing exercise on bone health. Plan: -start taking vitamin-D 1000 units in addition to the Viactiv supplement daily -incorporate 500-600 mg of calcium in your diet through not dairy products suggest fortified bread, spinach, almonds in addition to your 650 mg of calcium in supplement -30 minutes of weight-bearing exercise daily, incorporate resistance training in your lifestyle such as lifting weights, resistance bands -continue hormone replacement therapy with estrogen patch and Mirena IUD. This was discussed during last visit, however this visit we also emphasized to her that given she is being evaluated for thyroidectomy, surgical complications include hypoparathyroidism and hypocalcemia, and to increase her vitamin-D supplement 2000 units daily in addition to her Viactiv. I will also check her vitamin-D levels. Plan I spent 30 minutes in reviewing the record, seeing the patient and documenting in the medical record. Orders: Orders 2 Albumin Level Today E04.2 - Nontoxic multinodular goiter Calcium Today E04.2 - Nontoxic multinodular goiter Vitamin D 25-OH Total Today E04.2 - Nontoxic multinodular goiter, E55.9 - Vitamin D deficiency, unspecified, M85.852 - Other specified disorders of bone density and structure, left thigh Referrals 2 General Surgery Referral E04.2 - Nontoxic multinodular goiter Medications: New 2 cholecalciferol (vitamin D3) 25 mcg PO DAILY 30 caps 5RF Patient Instructions: We are placing a referral for you to see Dr. Rohan Busby for evaluation for surgery [facility] General Surgery [address] [place] [address],?CT?[id number] tel:[phone] Start taking vitamin D 1000 units daily Do blood work Coding Level of Care Code Est Pt Level 4 (34408) Diagnoses Multiple thyroid nodules E04.2 Osteopenia of neck of left femur M85.852 Osteopenia location: femoral neck Laterality: left Time Spent (min) 30
== END 2024-04-14 08:25 | disposition home or self-care (01) ==
PROVIDERS: PCP Nurse Practitioner Family; Visit Provider Student in an Organized Health Care Education/Training Program
DX: E04.2 Nontoxic multinodular goiter (principal); M85.852 Other specified disorders of bone density and structure, left thigh
CPT/HCPCS: 99214

== ENCOUNTER → 2024-04-14 07:55 | Outpatient (BNVA) | payer OTHER, SELFPAY | PROVIDERS: PCP Nurse Practitioner Family; Visit Provider Student in an Organized Health Care Education/Training Program | DX: E04.2 Nontoxic multinodular goiter (principal); M85.852 Other specified disorders of bone density and structure, left thigh | CPT/HCPCS: 99212 ==

== ENCOUNTER 2024-04-18 06:05 | Outpatient (REF) | payer OTHER, SELFPAY | END 2024-04-18 06:06 | disposition home or self-care (01) | LOC: CF 06:05 | PROVIDERS: Visit Provider Anesthesiology | DX: M47.816 Spondylosis without myelopathy or radiculopathy, lumbar region (principal) | CPT/HCPCS: 64493; 64494; J2003; J2795; Q9967 ==

== ENCOUNTER 2024-04-18 07:27 | Outpatient (AMB) | payer OTHER, SELFPAY ==
[2024-04-18 07:33] VITALS: BP 131/84; PULSE 79; RESP 16; O2SAT 100
--- NOTE | 2024-04-18 08:51 | A.OFFVIS_ITS ---
Vital Signs 04/18/24 07:33 04/18/24 08:52 BP 131/84 138/93 H Blood Pressure Location Lt brachial Lt brachial Position Sitting Sitting Respiration 16 Pulse 79 84 Pulse Source Pulse Oximeter Pulse Oximeter Pulse Oximetry (%) 100 100 Oxygen Delivery Method Room Air Room Air Comment Pre-op Post-op Intake Visit Reasons: RIGHT DIAGNOSTIC L3, L4, DRL5 MBB Allergies ibuprofen Adverse Reaction (Mild, Verified 04/14/24 08:00) Unknown cyclobenzaprine Adverse Reaction (Unknown, Verified 04/14/24 08:00) rapid heart rate [facility] Medical History (Updated 04/14/24 @ 08:23 by Pauline Lawrence MD) Vitamin D deficiency Lumbar radiculopathy Lumbar muscle pain Lower thoracic back pain Bilateral sciatica Muscle strain of chest wall No pertinent past medical history Surgical History No pertinent past surgical history Social History Housing: House Patient Tobacco Use Status: Never used Tobacco e-Cigarette/Vaping Use: Never Used Second Hand Smoke Exposure: Yes service: No Current occupational status: employed 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 ?Informed consent was explained to the patient. All questions were explained and? answered.? The patient was taken inside the operating room where she was positioned prone on the operating table. Time-out was performed delineating correct site, side, the nature of the procedure, patient's allergy, . All operating room staff was participating in OR time-out procedure. ? ? The lower back was prepped with ChloraPrep and draped with sterile towels.? C- arm was brought over the operating field and sq picture of L4-, L5 vertebra and S1 AREA were delineated on the screen.? Point of interest were delineated as confluence of superior articular process of L3, L4 and L5 vertebra on the rightwith corresponding transverse processes as well as confluence of the sacral alae on the right with superior articular process of S1.? The projection of the point of interest to the skin were injected with the small amount of local anesthetic lidocaine 2% mixed with ropivacaine 0.5% 1-1 approcimately 1 cc.? After that 22 gauge 3.5 inch spinal needle was driven sequentially to the points of interest in tunnel vision fashion. After needles gently contacted the bone at the point of interests the needle was injected with small amount of the contrast.? The injection of the contrast did not demonstrate any intravascular or intrathecal spread of the contrast.? After that injection of the? ropivacaine 0.5%-1cc was performed at each needle location.??after that the needles were removed and Bandaids were applied. ? Upon completion of the injections? needle was? removed and sterile Band-Aids were applied.? The patient tolerated procedure very well. Plan Brook presented back to the office today for follow-up right lower back pain, review of recent MRI MRI reviewed, results as per above Discussed options for treatment including diagnostic interventional testing, epidural steroid injections, peripheral nerve stimulation with Sprint, RFA and more permanent neuromodulation. Will schedule for fluoroscopy guided diagnostic right L3-L4 DR L5 medial branch blocks with local anesthetic. All questions and concerns were answered, patient agrees with the plan. Follow- up after imaging, sooner if needed Orders: Orders FL guidance in treatment room Today M47.816 - Spondylosis without myelopathy or radiculopathy, lumbar region Coding Level of Care Code Procedure Only Diagnoses Lumbar spondylosis M47.816
[2024-04-18 08:52] VITALS: BP 138/93; PULSE 84; O2SAT 100
== END 2024-04-18 08:50 | disposition home or self-care (01) ==
LOC: HO.PMCPRC 07:27
PROVIDERS: PCP Nurse Practitioner Family; Visit Provider Anesthesiology
DX: M47.816 Spondylosis without myelopathy or radiculopathy, lumbar region (principal)
CPT/HCPCS: 64493; 64494

== ENCOUNTER 2024-04-19 10:20 | Outpatient (AMB) | payer OTHER, SELFPAY ==
--- NOTE | 2024-04-19 10:22 | A.OFFPC_ITS ---
Vital Signs 04/19/24 10:25 04/19/24 11:04 04/19/24 11:04 Height 5 ft 3 in Weight 153 lb BMI 27.1 BP 139/84 180/100 H 180/102 H Blood Pressure Location Rt brachial Lt brachial Rt brachial Position Sitting Sitting Sitting Respiration 14 Pulse 67 Pulse Source Pulse Oximeter Pulse Oximetry (%) 100 Oxygen Delivery Method Room Air Intake Visit Reasons: Med review Intake Note: follow up on med review Service Dispatcher Required: No Allergies ibuprofen Adverse Reaction (Mild, Verified 04/19/24 10:50) Unknown cyclobenzaprine Adverse Reaction (Unknown, Verified 04/19/24 10:50) rapid heart rate Medication List - Last Reconciled 04/19/24 by Shantell Thompson, PL [employer] acetaminophen (Tylenol) 650 mg (2 x 325 mg) PO Q4H PRN calcium-vitamin D3-vitamin K 650 mg-12.5 mcg-40 mcg (Viactiv) 1 tab PO DAILY cholecalciferol (vitamin D3) 25 mcg PO DAILY estradiol transdermal lidocaine 5% 1 patch topical DAILY Tobacco use date assessed: 10/11/23 Dental Screening Dental Screen Date: 10/11/23 HPI HPI Comments History of Present Illness Details 48 y/o F with chronic back pain, osteope serge Health Maintenance: Pap Mammo 11/12/23 normal DEXA 10/2023 Osteopenia, repeat 5 years Declined flu shot 2023 Colon never had referred today Specialists: Endo Optho December 08 2023 History of Present Illness The patient is a 49-year-old female presenting with a thyroid disorder that has raised suspicion for malignancy. She is scheduled to meet with the surgeon, Dr. Busby in May to discuss potential thyroidectomy. She reports feeling stressed due to a combination of personal circumstances and her medical diagnosis. The patient has been experiencing pain following an injection in right lower back leading to difficulty sleeping and increased discomfort during daily activities, especially driving, as it exacerbates the pain. She continues to work despite the pain to avoid dwelling on stressors. The patient was advised against the frequent use of anti-inflammatories due to bruising issues, the bruising is stable/improved. Her depression screening is positive, with more depression than anxiety, though she denies interest in medication at this time or counseling. She continues with complaints of double vision. She does report a normal eye exam in November. I do not have this report. She also reports a new onset of right-sided headache. In addition she has noted in the last month her blood pressure to be elevated. She monitors at home. She reports that the s ystolic blood pressure can be 140-160. She denies any syncope, collapse, chest pain. Review of Systems - Cardiovascular: Reports elevated blood pressure readings. - Neurological: Reports dizziness, doubl e vision, headaches following dizziness episodes. - Psychological: Reports feelings of gavin ng down and sad. Physical Exam General: Well developed, well nourished, in no acute distress. Appears stated age. Head: Normocephalic, atraumatic. Eye: EOMI,PERRLA, no photophobia Ears: EAC clear R, cerumen L, TM intact on R Neck: Supple, no adenopathy , + thyromegaly, nontender, trachea midline RRR LS CTAB Skin: No rashes, ulcers, or lesions noted. Turgor is good. Skin color is good. Hair and nails are without abnormalities. No bruising noted today. Neuro: grossly normal exam. Results - Tests and Diagnostics: Colonoscopy ref erral discussed, MRI of the head to assess dizziness and double vision symptoms. FNA of right lower 2.5 cm nodule : AUS, Afirma: suspicious (NRAS , 75 % risk of malignancy), please evaluate for lobectomy vs total thyroidectomy Plan - Thyroid disorder with suspicion for ma lignancy: Follow-up with surgeon Dr. Busby in May; potential thyroidectomy discussed. - Hypertension: Initiation of hydrochlor othiazide for blood pressure management; patient advised to monitor blood pressure daily at home and follow-up in two weeks. - Pain management post-injection: Contin ue follow-up with pain management services; exploring alternatives if current medications ineffective. - Double vision/right sided headache/diz ziness: MRI of the head ordered; follow- up dependent on imaging results. - Depression: Patient declines medicatio n; recommends counseling support and keeping open lines of communication with daughter. - Stress-related anxiety: Emphasis on di stinguishing between stress-related symptoms and potential heart issues; use support systems. Patient was informed and verbally consented to the use of an ambient scribe for clinic note documentation during this visit. Patient Instructions - Follow-up with Dr. Busby to discuss t hyroid surgery. - Take hydrochlorothiazide once daily as prescribed; monitor blood pressure daily. - Record blood pressure readings, mainta in consistency in time, and bring records to follow-up. - Use support systems, and monitor for s evere symptoms needing ER attention. - Await call for MRI scheduling; follow- up soon after results. - Consult pain management next week rega rding injection site pain. - Consider exploring non-family counseli ng options if needed. - Schedule follow-up appointment in two weeks; report any critical symptoms promptly. This note is constructed using voice recognition software. While every effort has been made to ensure accuracy in airline stewardess, still errors may have been included Sometimes, these errors may affect the content or meaning of the given sentence . Total time spent caring for the patient today was 45 minutes. This includes time spent before the visit reviewing the chart, time spent during the visit, and time spent after the visit on documentation [facility] Medical History (Updated 04/19/24 @ 14:57 by Shantell Thompson, [facility]) Vitamin D deficiency Lumbar radiculopathy Lumbar muscle pain Lower thoracic back pain Bilateral sciatica Muscle strain of chest wall No pertinent past medical history Surgical History No pertinent past surgical history Social History Housing: House Patient Tobacco Use Status: Never used Tobacco e-Cigarette/Vaping Use: Never Used Second Hand Smoke Exposure: Yes service: No Current occupational status: employed 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 1. Little interest or pleasure in doing things: more than half the days 2. Feeling down, depressed, or hopeless: more than half the days 3. Trouble falling or staying asleep, or sleeping too much: several days 4. Feeling tired or having little energy: several days 5. Poor appetite or overeating: several days 6. Feeling bad about yourself - or that you are a failure or have let yourself or your family down: not at all 7. Trouble concentrating on things, such as reading the newspaper or watching television: not at all 8. Moving or speaking so slowly that other people could have noticed. Or the opposite - being so fidgety or restless that you have been moving around a lot more than usual: not at all 9. Thoughts that you would be better off or of hurting yourself in some way: not at all Total score: 7 Depression Screening Interpretation: Positive Depression Screening Follow-up: Declines treatment Depression Screening Done: Yes 28304 - PHQ-9 Billing: Yes Source: Developed by Drs. Chilango Arenas, Giulia Van, Yousif Britt and colleagues, with an educational robert from [employer]. Thrive Questionnaire Date Thrive assessed: 04/19/24 I am a: Patient What is your living situation today?: I have a steady place to live Within the past 12 months, did the food you bought not last and you didn't have the money to get more?: Never true Within the past 12 months, did you worry whether your food would run out before you got money to buy more?: Never true Do you have trouble paying for medicines?: No Do you have trouble getting transportation to medical appointments?: No Do you have trouble paying your heating and electricity bill?: No Do you have trouble taking care of your child, family member or friend?: No Do you have trouble with day-to-day activities such as bathing, preparing meals, shopping, managing finances, etc.?: No Are you currently unemployed and looking for a job?: No Are you interested in more education?: No Please select the resources that you would like help with: None Currently or been in a relationship where the following occur: No concerns reported THRIVE Score: 0 AUDIT C Alcohol Use Questionnaire (AUDIT-C) 1. How often do you have a drink containing alcohol?: Monthly or less 2. How many drinks containing alcohol do you have on a typical day when you are drinking?: 1 or 2 3. How often do you have six or more drinks on one occasion?: Never Total Score: 1 Score Reviewed/Action Taken: Yes MK-7 AMB Questionnaire MK-7 Date MK - 7 assessed: 04/19/24 Feeling nervous, anxious, or on edge: 1 = Several days Not being able to stop or control worryin = Not at all Worrying too much about different things: 1 = Several days Trouble relaxin = Not at all Being so restless that it is hard to sit still: 0 = Not at all Becoming easily annoyed or irritable: 1 = Several days Feeling afraid as if something awful might happen: 0 = Not at all Total MK-7 score (0-4 normal; 5-9 mild; 10-14 moderate; 15-21 severe): 3 Source: Developed by Drs. Chilango Arenas, Giulia Van, Yousif Britt and colleagues, with an educational robert from [employer]. MK-7 Assessment Billing MK-7 Assessment Tool: MK-7 Assessment 48989 Physical exam (Primary Care) Vital Signs: Last Vital Signs Pulse 67 04/19/24 10:25 Resp 14 04/19/24 10:25 BP 180/102 H 04/19/24 11:04 Pulse Ox 100 04/19/24 10:25 Oxygen Delivery Method Room Air 04/19/24 10:25 BMI result Body Mass Index 27.1 Tobacco/Smoking Status: Tobacco use Status Tobacco use date assessed 10/11/23 04/19/24 10:24 Patient Tobacco Use Status Never used Tobacco 04/19/24 10:24 e-Cigarette/Vaping Use Never Used 04/19/24 10:24 PHQ-9: PHQ-9 Score PHQ-9: Total score 7 04/19/24 11:00 Depression Screening Interpretation: Positive Depression Screening Follow-up: Declines treatment Thrive Assessment: Date of Thrive Assessment Date Thrive assessed 04/19/24 04/19/24 10:24 Currently or been in a relationship where the following occur: No concerns reported Coding Level of Care Code Est Pt Level 5 (92155) Complex EM visit Add On G2211 Diagnoses Blurred vision H53.8 Dizziness R42 Right-sided headache R51.9 Chronic bilateral low back pain without sciatica M54.50; G89.29 Back pain laterality: bilateral Sciatica presence: without sciatica Primary hypertension I10 Hypertension type: primary hypertension Additional Codes MK-7 Assessment Billing - MK-7 Assessment Tool: MK-7 Assessment 09240 ([id number]) PHQ-9 - 83477 - PHQ-9 Billing: Yes ([id number]) Assessment & Plan Assessment & Plan (1) Blurred vision: Code(s): H53.8 - Other visual disturbances Category: Medical (2) Dizziness: Code(s): R42 - Dizziness and giddiness Category: Medical (3) Right-sided headache: Code(s): R51.9 - Headache, unspecified Category: Medical (4) Chronic low back pain: Code(s): M54.50 - Low back pain, unspecified; G89.29 - Other chronic pain Category: Medical Qualifiers: Back pain laterality: bilateral Sciatica presence: without sciatica Qualified Code(s): M54.50 - Low back pain, unspecified; G89.29 - Other chronic pain (5) HTN (hypertension): Code(s): I10 - Essential (primary) hypertension Category: Medical Qualifiers: Hypertension type: primary hypertension Qualified Code(s): I10 - Essential (primary) hypertension Plan . Orders: Orders MR head/brain wo/w con Today H53.8 - Other visual disturbances, R42 - Dizziness and giddiness, R51.9 - Headache, unspecified Referrals Open Access Screening Colonoscopy Referral Z12.11 - Encounter for screening for malignant neoplasm of colon, Z12.12 - Encounter for screening for malignant neoplasm of rectum Medications: New hydrochlorothiazide 25 mg PO DAILY 90 tabs 0RF
[2024-04-19 10:25] VITALS: BP 139/84; PULSE 67; RESP 14; O2SAT 100; BMI 27.1
[2024-04-19 11:04] VITALS: BP 180/100; BP 180/102
== END 2024-04-19 11:11 | disposition home or self-care (01) ==
PROVIDERS: PCP Nurse Practitioner Family; Visit Provider Nurse Practitioner Family
DX: H53.8 Other visual disturbances (principal); R42 Dizziness and giddiness; R51.9 Headache, unspecified; M54.50 Low back pain, unspecified; G89.29 Other chronic pain; I10 Essential (primary) hypertension

== ENCOUNTER → 2024-04-19 10:20 | Outpatient (BNVA) | payer OTHER, SELFPAY | PROVIDERS: PCP Nurse Practitioner Family; Visit Provider Nurse Practitioner Family | DX: H53.8 Other visual disturbances (principal); R42 Dizziness and giddiness; R51.9 Headache, unspecified; M54.50 Low back pain, unspecified; G89.29 Other chronic pain; I10 Essential (primary) hypertension | CPT/HCPCS: 96127; 99212 ==

== ENCOUNTER 2024-04-26 09:40 | Outpatient (REF) | payer OTHER, SELFPAY ==
[2024-04-26 11:29] LABS: Albumin Level 4.3 g/dL (3.5-5.0)
[2024-04-26 11:39] LABS: Vitamin D 25-OH Total 30.8 ng/mL (>30)
== END 2024-04-26 09:41 | disposition home or self-care (01) ==
LOC: HO.LAB 09:40
PROVIDERS: Absent Provider Student in an Organized Health Care Education/Training Program; PCP Nurse Practitioner Family; Visit Provider Registered Nurse Emergency
DX: M47.816 Spondylosis without myelopathy or radiculopathy, lumbar region (principal); M79.18 Myalgia, other site; M54.50 Low back pain, unspecified; G89.29 Other chronic pain; E04.2 Nontoxic multinodular goiter; M85.852 Other specified disorders of bone density and structure, left thigh; E55.9 Vitamin D deficiency, unspecified
CPT/HCPCS: 36415; 82040; 82306; 82310; 99212

== ENCOUNTER 2024-04-26 09:40 | Outpatient (AMB) | payer OTHER, SELFPAY ==
--- NOTE | 2024-04-26 09:43 | A.OFFVIS_ITS ---
Vital Signs 04/26/24 09:50 Height 5 ft 3 in Weight 155 lb 6 oz BMI 27.5 BP 137/78 Blood Pressure Location Rt brachial Position Sitting Pulse 101 H Pulse Source Pulse Oximeter Pulse Oximetry (%) 100 Oxygen Delivery Method Room Air Intake Visit Reasons: RIGHT DIAGNOSTIC L3, L4, DRL5 MBB Intake Note: Pain today 10/31 Vp Clinical Required: No Accompanied by: Daughter Allergies ibuprofen Adverse Reaction (Mild, Verified 04/26/24 09:50) Unknown cyclobenzaprine Adverse Reaction (Unknown, Verified 04/26/24 09:50) rapid heart rate HPI Comments Details: Patient presented back to the office today for follow-up, one-week status post right diagnostic L3-L4 DR L5 medial branch blocks Reports no improvement in her pain, function or mobility in the hours after the injection Continues with right lower back pain, worse with palpation, movement and ?pressure? Prior: Patient presents back to the office today for follow-up, review of recent MRI MRI reviewed, results as per below Continues with 10/31 right lower back pain without radiation down her leg Pain is worse with sitting, twisting, driving and lying down Patient has completed physical therapy without improvement. She continues with home exercise program. No improvement with chiropractor, heat, ice, nonsteroidal anti-inflammatory medications, prescription medications, muscle relaxers. Initial Visit: Brook is a very pleasant 48-year-old female who presents to the office today for evaluation management of her chronic lower back pain. Endorses right lower back pain for approximately 3 years. Pain radiates down the right lower extremity to the foot She has completed physical therapy which did not improve her pain. She continues with home exercise program. Manual manipulation by chiropractor did not improve her pain. Pain recently exacerbated by discontinuation of her nonsteroidal anti- inflammatory medications. They were previously prescribed by her PCP but most recent workup she states after lab work and reports of increased bruising these were discontinued. She was trialed on Celebrex but did not find it helpful so that has also been discontinued. 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 Pain is also exacerbated by bending, twisting, moving and going up and downstairs. Pain with forward flexion, worse with extension In terms of muscle damage condition is described as stabbing, shooting, pinching, pins and needles Pain is negatively impacting patient's enjoyment life, general activity, work, sleep ability to function normally Denies red flag symptoms including new loss of bowel, bladder or saddle anesthesia Denies current use of anticoagulants Denies use of nicotine, tobacco, alcohol or illicit substances Denies implantable devices, pacemaker defibrillator [facility] Medical History (Updated 04/26/24 @ 14:19 by Sobia Payne, JUAN MANUEL, [employer]) Vitamin D deficiency Lumbar radiculopathy Lumbar muscle pain Lower thoracic back pain Bilateral sciatica Muscle strain of chest wall No pertinent past medical history Surgical History No pertinent past surgical history Social History Housing: House Patient Tobacco Use Status: Never used Tobacco e-Cigarette/Vaping Use: Never Used Second Hand Smoke Exposure: Yes service: No Current occupational status: employed 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 Answers questions appropriately. Fully engaged in examination. Skin: warm, dry, intact HEENT: Normocephalic. Hearing intact. Cardiac: External chest normal in appearance. Respiratory: No cough, audible wheezing or stridor. Abdomen: without gross distension. Abdomen soft nontender, no guarding. No CVA tenderness MS: No obvious swelling or deformities. Able to transition from sit to stand unassisted. Ambulates with bilaterally normal heel strike and toe off Tenderness to palpation over right lumbar musculature Neurological: Oriented to person, place, time and situation. Thought process intact. No gait abnormalities appreciated. Psychiatric: Appropriate mood and affect. Good judgment and insight. Results Reviewed Results Reviewed: 02/11/24 MR LS FINDINGS: Normal anatomic alignment. Mild degenerative disc disease at L1-L2 and from L3-L5. Associated mixed Modic type discogenic endplate changes including minimal Modic type I discogenic edema at L1-L2. No additional suspicious marrow edema. The vertebral body heights are well-maintained. The conus medullaris terminates at the level of L1. The distal spinal cord is normal in appearance. No significant abnormalities of the paraspinal musculature. Limited evaluation of the intra-abdominal structures without significant abnormalities. The abdominal aorta is of normal contour and caliber. AXIAL SPINAL LEVELS: L1-L2: Shallow diffuse disc bulge with superimposed left subarticular disc protrusion. There is no facet joint arthropathy. There is no neural foraminal stenosis. There is no spinal canal stenosis. L2-L3: Normal annular contour. There is mild bilateral facet joint arthropathy. There is no neural foraminal stenosis. There is no spinal canal stenosis. L3-L4: Mild diffuse disc bulge. There is mild bilateral facet joint arthropathy. There is mild left and no right neural foraminal stenosis. There is no spinal canal stenosis. L4-L5: Mild diffuse disc bulge. There is mild bilateral facet joint arthropathy. There is mild bilateral neural foraminal stenosis. There is no spinal canal stenosis. L5-S1: Normal annular contour. There is mild bilateral facet joint arthropathy. There is no neural foraminal stenosis. There is no spinal canal stenosis. 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 Most notably, there are mild neural foraminal narrowings at L3-L4 and L4-L5. No overt spinal canal stenosis or nerve root compression. Assessment & Plan Assessment & Plan (1) Lumbar spondylosis: Code(s): M47.816 - Spondylosis without myelopathy or radiculopathy, lumbar region Category: Medical (2) Lumbar muscle pain: Code(s): M79.18 - Myalgia, other site Category: Medical (3) Myofascial low back pain: Code(s): M54.50 - Low back pain, unspecified Category: Medical (4) Chronic low back pain: Code(s): M54.50 - Low back pain, unspecified; G89.29 - Other chronic pain Category: Medical Qualifiers: Back pain laterality: bilateral Sciatica presence: without sciatica Qualified Code(s): M54.50 - Low back pain, unspecified; G89.29 - Other chronic pain Plan Brook presented back to the office today for follow-up one-week status post right diagnostic L3-L4 DR L5 medial branch blocks Denies improvement in pain, function or mobility in the hours after the injections. Will schedule for in office trigger point injections with steroids to be performed by Dr. Galvan. All questions and concerns were answered, patient agrees with the plan. Follow- up after injections, sooner if needed Coding Level of Care Code Est Pt Level 3 (15834) Complex EM visit Add On G2211 Diagnoses Lumbar spondylosis M47.816 Lumbar muscle pain M79.18 Myofascial low back pain M54.50 Chronic bilateral low back pain without sciatica M54.50; G89.29 Back pain laterality: bilateral Sciatica presence: without sciatica
[2024-04-26 09:50] VITALS: BP 137/78; PULSE 101; O2SAT 100; BMI 27.5
== END 2024-04-26 10:10 | disposition home or self-care (01) ==
PROVIDERS: PCP Nurse Practitioner Family; Visit Provider Registered Nurse Emergency
DX: M47.816 Spondylosis without myelopathy or radiculopathy, lumbar region (principal); M79.18 Myalgia, other site; M54.50 Low back pain, unspecified; G89.29 Other chronic pain
CPT/HCPCS: 99213; G2211

== ENCOUNTER 2024-05-03 11:14 | Outpatient (AMB) | payer OTHER, SELFPAY ==
--- NOTE | 2024-05-03 11:29 | A.OFFPC_ITS ---
Vital Signs 05/03/24 11:32 05/03/24 11:57 Height 5 ft 3 in Weight 152 lb BMI 26.9 BP 102/66 128/68 Blood Pressure Location Rt brachial Lt brachial Position Sitting Sitting Respiration 12 Pulse 91 Pulse Source Pulse Oximeter Pulse Oximetry (%) 99 Oxygen Delivery Method Room Air Intake Visit Reasons: 2 weeks 30 min fu HTN start HCTZ Intake Note: 2 week follow up for htn Trust Manager Required: No Allergies hydrochlorothiazide Adverse Reaction (Mild, Verified 05/03/24 11:59) Nausea ibuprofen Adverse Reaction (Mild, Verified 05/03/24 11:30) Unknown cyclobenzaprine Adverse Reaction (Unknown, Verified 05/03/24 11:30) rapid heart rate Tobacco use date assessed: 10/11/23 Dental Screening Dental Screen Date: 10/11/23 HPI HPI Comments History of Present Illness Details 48 y/o F with chronic back pain, osteope serge, htn Health Maintenance: Pap Mammo 11/12/23 normal DEXA 10/2023 Osteopenia, repeat 5 years Declined flu shot 2023 Colon never had referred today Specialists: Endo Optho December 08 2023 The patient is a 49-year-old female presenting with a follow-up for hypertension management. She was recently started on hctz 25mg two weeks prior. The medication has led to an improvement in her blood pressure, with the most recent reading being 102/66 mmHg and pulse at 91 beats per minute. However, the patient reports experiencing persistent nausea since initiating the medication, despite taking it with food. Occasionally, she forgot to take the medication in the morning and took it later in the day but noticed no change in nausea. She presents with a home blood pressure and pulse log for me to review today. Her systolic blood pressure is generally in the 130s with normal diastolic blood pressure and pulse ranges from 80 to 103. Today she denies any cardiac symptoms. As for her thyroid condition, she has been diagnosed with thyroid malignancy, which will require surgical intervention. The patient is scheduled for a consultation with a surgeon in [facility], and has been advised to maintain these arrangements. Consult note reviewed today during the office visit. Physical Exam General: Awake, alert. No apparent distress accompanied by dtr Eyes: Sclera and conjunctiva clear bilaterally Cardiovascular: Regular rate and rhythm, pulse 91 Respiratory: Clear to auscultation bilaterally Plan Essential Hypertension: Discontinue hydrochlorothiazide due to nausea and initiate lisinopril 5 mg once daily. Monitor for any side effects with lisinopril, particularly facial swelling or cough Monitor blood pressure and pulse logs. Schedule follow-up in three weeks to assess blood pressure control. - Nausea secondary to medication: Discon tinue hydrochlorothiazide and switch to a different antihypertensive class. Monitor for any side effects with lisinopril, particularly facial swelling or cough. - Thyroid malignancy: FU with Shelby tai, who Ordered a CAT scan of the neck with contrast to assess the extent of the disease. Option presented includes right thyroid lobectomy with potential completion thyroidectomy versus total thyroidectomy followed by radioactive iodine ablation. Patient was informed and verbally consented to the use of an ambient scribe for clinic note documentation during this visit. Discussion Notes During the visit, I discussed the management of the patient's hypertension and resultant nausea from hydrochlorothiazide. The decision was made to discontinue the offending medication and start lisinopril, with instructions for the patient to monitor her blood pressure at home and keep a log. I informed the patient about potential side effects of lisinopril, including facial swelling, which requires immediate discontinuation of the drug, and a cough, which should be reported if bothersome. Regarding her thyroid malignancy, surgery planning was discussed, including the necessity of a neck CAT scan and potential surgical options. I emphasized the importance of achieving stable blood pressure before her upcoming surgery and recommended a follow-up in three weeks.. Patient Instructions - Discontinue hydrochlorothiazide and be gin lisinopril 5 mg once daily. - Monitor blood pressure daily and maint ain a pulse log. - Report any side effects such as facial swelling immediately. - Return in three weeks for a follow-up visit to assess blood pressure management. - Obtain a CAT scan of the neck with [facility] and coordinate with [facility] for thyroid surgery. - Maintain scheduled appointments for [facility] assessment in [place], ensuring all insurance paperwork is completed. RTO 3 WEEKS BP/P RECHECK LISIN 5MG START Total time spent caring for the patient today was 30 minutes. This includes time spent before the visit reviewing the chart, time spent during the visit, and time spent after the visit on documentation [facility] Medical History (Updated 05/03/24 @ 12:45 by Shantell Thompson, SURGERY ASSISTANT-) Vitamin D deficiency Lumbar radiculopathy Lumbar muscle pain Lower thoracic back pain Bilateral sciatica Muscle strain of chest wall No pertinent past medical history Surgical History No pertinent past surgical history Social History Housing: House Patient Tobacco Use Status: Never used Tobacco e-Cigarette/Vaping Use: Never Used Second Hand Smoke Exposure: Yes service: No Current occupational status: employed 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 35750 - PHQ-9 Billing: Patient declined-do not bill Source: Developed by Drs. Chilango Arenas, Yousif Aguiar and colleagues, with an educational robert from [employer]. Thrive Questionnaire Date Thrive assessed: 05/03/24 I am a: Patient What is your living situation today?: I have a steady place to live Within the past 12 months, did the food you bought not last and you didn't have the money to get more?: Never true Within the past 12 months, did you worry whether your food would run out before you got money to buy more?: Never true Do you have trouble paying for medicines?: No Do you have trouble getting transportation to medical appointments?: No Do you have trouble paying your heating and electricity bill?: No Do you have trouble taking care of your child, family member or friend?: No Do you have trouble with day-to-day activities such as bathing, preparing meals, shopping, managing finances, etc.?: No Are you currently unemployed and looking for a job?: No Are you interested in more education?: No Please select the resources that you would like help with: None Currently or been in a relationship where the following occur: No concerns reported THRIVE Score: 0 MK-7 AMB Questionnaire MK-7 Date MK - 7 assessed: 04/19/24 Source: Developed by Drs. Chilango Arenas, Giulia Van, Yousif Britt and colleagues, with an educational robert from [employer]. Physical exam (Primary Care) Vital Signs: Last Vital Signs Pulse 91 05/03/24 11:32 Resp 12 05/03/24 11:32 BP 128/68 05/03/24 11:57 Pulse Ox 99 05/03/24 11:32 Oxygen Delivery Method Room Air 05/03/24 11:32 BMI result Body Mass Index 26.9 Tobacco/Smoking Status: Tobacco use Status Tobacco use date assessed 10/11/23 05/03/24 11:34 Patient Tobacco Use Status Never used Tobacco 05/03/24 11:34 e-Cigarette/Vaping Use Never Used 05/03/24 11:34 Thrive Assessment: Date of Thrive Assessment Date Thrive assessed 05/03/24 05/03/24 11:34 Currently or been in a relationship where the following occur: No concerns reported Coding Level of Care Code Est Pt Level 4 (89546) Complex EM visit Add On G2211 Diagnoses Primary hypertension I10 Hypertension type: primary hypertension Thyromegaly E01.0 Multiple thyroid nodules E04.2 Assessment & Plan Assessment & Plan (1) HTN (hypertension): Code(s): I10 - Essential (primary) hypertension Category: Medical Qualifiers: Hypertension type: primary hypertension Qualified Code(s): I10 - Essential (primary) hypertension (2) Thyromegaly: Comment: + TPO AB, 10/2023 US Estimated total number of nodules greater than or equal to 1 cm: 2. [employer] [facility] nodules are described as follows: 1. Location: Right upper pole. Size: 1.0 x 0.8 x 0.9 cm, volume 0.4 mL. Nodule characteristics: Composition: Mixed cystic and solid (1). Echogenicity: Hypoechoic (2). Shape: Not taller than wide (0). Margins: Ill-defined (0). Echogenic Foci: None (0). ACR TI-RADS total points: 3 ACR TI-RADS category: 3 2. Location: Right lower pole. Size: 2.5 x 1.5 x 1.7 cm, volume 3.1 mL. Nodule characteristics: Composition: Solid/almost completely solid (2). Echogenicity: Isoechoic (1). Shape: Not taller than wide (0). Margins: Ill-defined (0). Echogenic Foci: None (0). ACR TI-RADS total points: 3 ACR TI-RADS category: 3 3. Location: Left mid pole. Size: 0.3 x 0.2 x 0.3 cm, volume 0.009 mL. Nodule characteristics: Composition: Solid (2). Echogenicity: Hyperechoic (1). Shape: Not taller than wide (0). Margins: Ill-defined (0). Echogenic Foci: None (0). ACR TI-RADS total points: 3 ACR TI-RADS category: 3 NODES: No lymphadenopathy is seen in the tissue surrounding the thyroid gland. US/US thyroid IMPRESSION: Bilateral thyroid nodules, largest 2.5 cm right lower TR3 nodule. PLAN FOR TOTAL THYROIDECTOMY WITH [facility] MAY 2024 Code(s): E01.0 - Iodine-deficiency related diffuse (endemic) goiter Category: Medical (3) Multiple thyroid nodules: Code(s): E04.2 - Nontoxic multinodular goiter Category: Medical Plan . Medications: New lisinopril 5 mg PO DAILY 30 tabs 1RF Discontinued hydrochlorothiazide Discontinued Reason: Doctor's Order 25 mg PO DAILY 90 tabs 0RF
[2024-05-03 11:32] VITALS: BP 102/66; PULSE 91; RESP 12; O2SAT 99; BMI 26.9
[2024-05-03 11:57] VITALS: BP 128/68
== END 2024-05-03 12:03 | disposition home or self-care (01) ==
PROVIDERS: PCP Nurse Practitioner Family; Visit Provider Nurse Practitioner Family
DX: I10 Essential (primary) hypertension (principal); E04.2 Nontoxic multinodular goiter

== ENCOUNTER → 2024-05-03 11:14 | Outpatient (BNVA) | payer OTHER, SELFPAY | PROVIDERS: PCP Nurse Practitioner Family; Visit Provider Nurse Practitioner Family | DX: I10 Essential (primary) hypertension (principal); E04.2 Nontoxic multinodular goiter | CPT/HCPCS: 99212 ==

== ENCOUNTER 2024-05-07 15:14 | Outpatient (REF) | payer OTHER, SELFPAY ==
--- NOTE | ~2024-05-07 | MR_ITS ---
EXAMINATION: MR BRAIN WITHOUT AND WITH CONTRAST CLINICAL INFORMATION: Right-sided headache, dizziness, double vision COMPARISON: None available. TECHNIQUE: Multiplanar, multisequence MRI of the brain was obtained before and after the intravenous administration of 7.5 mL Gadavist. Dedicated IAC pulse series were also obtained. FINDINGS: The inner ear structures including the cochlea, vestibules, and semicircular canals exhibit preserved CSF signal intensity with no pathologic enhancement. The vestibular aqueducts are not enlarged. Cranial nerves VII and VIII complexes are normal in morphology. No enhancing CP angle/retrocochlear lesion. No acute intracranial hemorrhage or infarct. Several scattered periventricular and deep white matter T2/FLAIR hyperintensities, nonspecific however commonly seen with small vessel ischemic disease. No abnormal intracranial enhancement. No midline shift or hydrocephalus. No acute extra-axial fluid collections. The osseous structures are unremarkable. The pituitary gland, pineal gland and remaining midline structures are unremarkable. No orbital pathology. The paranasal sinuses and mastoid air cells are clear. MR/MR head/brain wo/w con IMPRESSION: Unremarkable MRI brain. Electronically signed by: Mary Mcmullen MD 05/09/2024 01:47 PM ARTUR JONES
[2024-05-07] MEDS: gadobutroL 7.5 ML VIAL IVPUSH (16:09)
== END 2024-05-07 15:15 | disposition home or self-care (01) ==
LOC: HO.MRI 15:14
PROVIDERS: PCP Nurse Practitioner Family; Visit Provider Nurse Practitioner Family
DX: H53.8 Other visual disturbances (principal); R42 Dizziness and giddiness; R51.9 Headache, unspecified
CPT/HCPCS: 70553; A9585

== ENCOUNTER 2024-05-10 10:12 | Outpatient (AMB) | payer OTHER, SELFPAY ==
[2024-05-10 10:33] VITALS: BP 122/72; PULSE 77; O2SAT 100; BMI 26.9
--- NOTE | 2024-05-10 10:33 | A.OFFVIS_ITS ---
Vital Signs 05/10/24 10:33 Height 5 ft 3 in Weight 152 lb BMI 26.9 BP 122/72 Blood Pressure Location Lt brachial Position Sitting Pulse 77 Pulse Source Pulse Oximeter Pulse Oximetry (%) 100 Oxygen Delivery Method Room Air Intake Visit Reasons: Trigger Point Injection Allergies hydrochlorothiazide Adverse Reaction (Mild, Verified 05/10/24 10:34) Nausea ibuprofen Adverse Reaction (Mild, Verified 05/10/24 10:34) Unknown cyclobenzaprine Adverse Reaction (Unknown, Verified 05/10/24 10:34) rapid heart rate Medication List - Last Reconciled 05/10/24 by Fawn Romero, HEART NURSE acetaminophen (Tylenol) 650 mg (2 x 325 mg) PO Q4H PRN calcium-vitamin D3-vitamin K 650 mg-12.5 mcg-40 mcg (Viactiv) 1 tab PO DAILY cholecalciferol (vitamin D3) 25 mcg PO DAILY estradiol transdermal lidocaine 5% 1 patch topical DAILY lisinopril 5 mg PO DAILY PFS Medical History (Updated 05/03/24 @ 12:45 by Shantell Thompson, [facility]) Vitamin D deficiency Lumbar radiculopathy Lumbar muscle pain Lower thoracic back pain Bilateral sciatica Muscle strain of chest wall No pertinent past medical history Surgical History No pertinent past surgical history Social History Housing: House Patient Tobacco Use Status: Never used Tobacco e-Cigarette/Vaping Use: Never Used Second Hand Smoke Exposure: Yes service: No Current occupational status: employed 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 Current occupational exposures/hazards: No Cognitive needs: No Hearing needs: No Vision needs: No Physical Exam Vital Signs: Last Vital Signs Pulse 77 05/10/24 10:33 BP 122/72 05/10/24 10:33 Pulse Ox 100 05/10/24 10:33 Oxygen Delivery Method Room Air 05/10/24 10:33 BMI result Body Mass Index 26.9 Office Procedures Therapeutic Injection Therapeutic Injection [id number]-[id number] Point Injection 1 or 2 sites All charges added?: Procedure code (CPT) selection complete Office Meds triamcinolone acetonide 40 mg/mL suspension for injection Performing Provider: Thien Galvan MD Performing Location: [facility] Administered by: Thien Galvan MD on 05/10/24 10:52 Dose Route Admin Location Dispensed Lot Number Expiration Date NDC Biomedical Instrument Technician 40 mg Infiltration 1 mL [id number] AMNEAL VALENTINEN Comments: In addition to the Kenalog injection of the 9 cc of ropivacaine 0.5% lot [id number] Assessment & Plan Assessment & Plan (1) Lumbar spondylosis: Code(s): M47.816 - Spondylosis without myelopathy or radiculopathy, lumbar region Category: Medical (2) Lumbar muscle pain: Code(s): M79.18 - Myalgia, other site Category: Medical (3) Myofascial low back pain: Code(s): M54.50 - Low back pain, unspecified Category: Medical (4) Chronic low back pain: Code(s): M54.50 - Low back pain, unspecified; G89.29 - Other chronic pain Category: Medical Qualifiers: Back pain laterality: bilateral Sciatica presence: without sciatica Qualified Code(s): M54.50 - Low back pain, unspecified; G89.29 - Other chronic pain Plan: The patient came today for the trigger point injection. Informed consent was obtained. Risks and benefits were explained. The patient was positioned prone on the examination bed. The most painful area in the projection of the patient's iliac crest on the right was prepped with ChloraPrep and after that medication mixture of ropivacaine 0.5% mixed with Kenalog 40 mg total of 10 cc was injected into the most painful area and advanced to iliac crest presumable positioned in fan-like fashion. Upon completion of the injection needle was removed Band-Aid was applied. Segundo Brook presented back to the office today for follow-up one-week status post right diagnostic L3-L4 DR L5 medial branch blocks Denies improvement in pain, function or mobility in the hours after the injections. Will schedule for in office trigger point injections with steroids to be performed by Dr. Galvan. All questions and concerns were answered, patient agrees with the plan. Follow- up after injections, sooner if needed Orders: Orders AMB Trigger Point Injection Today M54.50 - Low back pain, unspecified Medications: New triamcinolone acetonide 40 mg Infiltration ONCE 1 mL 0RF M54.50 - Low back pain, unspecified Coding Level of Care Code Procedure Only Diagnoses Lumbar spondylosis M47.816 Lumbar muscle pain M79.18 Myofascial low back pain M54.50 Chronic bilateral low back pain without sciatica M54.50; G89.29 Back pain laterality: bilateral Sciatica presence: without sciatica CPT Codes Therapeutic Injection - Ther Injection 1: [id number] Point Injection 1 or 2 sites ([id number])
== END 2024-05-10 10:48 | disposition home or self-care (01) ==
PROVIDERS: PCP Nurse Practitioner Family; Visit Provider Anesthesiology
DX: M79.18 Myalgia, other site (principal); M47.816 Spondylosis without myelopathy or radiculopathy, lumbar region; M54.50 Low back pain, unspecified; G89.29 Other chronic pain
CPT/HCPCS: 20552

== ENCOUNTER → 2024-05-10 10:12 | Outpatient (BNVA) | payer OTHER, SELFPAY | PROVIDERS: PCP Nurse Practitioner Family; Visit Provider Anesthesiology | DX: M47.816 Spondylosis without myelopathy or radiculopathy, lumbar region (principal); M79.18 Myalgia, other site; M54.50 Low back pain, unspecified; G89.29 Other chronic pain | CPT/HCPCS: 20552; J2795; J3300 ==

== ENCOUNTER 2024-05-18 10:33 | Outpatient (REF) | payer OTHER, SELFPAY ==
[2024-05-18 10:57] LABS: MANUAL DIFF FLAG NO
[2024-05-18 11:23] LABS: Basophils Absolute Auto 0.1 X10*3/uL (0.0-0.2); Basophils Percent Auto 0.6 % (0-2); Eosinophils Percent Auto 0.2 % (0-4); Hematocrit 44.3 % (37.0-47.0); Hemoglobin 14.5 g/dl (12.0-16.0); Imm Gran Abs Auto 0.05 X10*3/uL (0.00-0.03); Imm Gran Pct Auto 0.6 % (0.0-0.4); Lymphocytes Absolute Auto 1.8 X10*3/uL (1.2-4.9); Lymphocytes Percent Auto 21.6 % (20-40); Mean Corpuscular HGB Conc 32.7 g/dl (31.0-35.0); Mean Corpuscular Hemoglobin 29.2 pg (27.0-33.0); Mean Corpuscular Volume 89.1 fL (80.0-98.0); Mean Platelet Volume 10.3 fL (9.4-12.3); Monocytes Absolute Auto 0.8 X10*3/uL (0.1-1.2); Monocytes Percent Auto 9.4 % (2-11); Neutrophils Absolute Auto 5.8 x10*3/uL (2.0-8.3); Neutrophils Percent Auto 67.6 % (45-73); Platelet Count 294 X10*3/uL (160-400); Red Blood Count 4.97 X10*6/uL (4.20-5.50); Red Cell Distribution Width 13.7 % (11.0-16.0); White Blood Count 8.5 X10*3/uL (4.8-10.8)
[2024-05-18 11:27] LABS: Prothrombin Time 12.1 SEC (10.9-12.4)
[2024-05-18 11:30] LABS: Partial Thromboplastin Time 38.3 SEC (26.0-36.8)
[2024-05-18 12:04] LABS: Parathyroid Hormone Intact 44.3 pg/mL (8.7-77.1)
[2024-05-18 12:16] LABS: Anion Gap 10 (12-20); Blood Urea Nitrogen 9 mg/dL (9-16); Calcium 9.3 mg/dL (8.4-10.2); Carbon Dioxide 27 mmol/L (22-29); Chloride 106 mmol/L (96-108); Estimated Glomerular Filt Rate > 60; Glucose Random 87 mg/dL (60-115); Magnesium 2.4 mg/dL (1.6-2.6); Phosphorus 2.5 mg/dL (2.7-4.5); Sodium 139 mmol/L (135-145)
[2024-05-18 12:17] LABS: Vitamin D 25-OH Total 39.2 ng/mL (>30)
[2024-05-18 12:20] LABS: Thyroid Stimulating Hormone 0.89 uIU/mL (0.32-4.0)
== END 2024-05-18 10:34 | disposition home or self-care (01) ==
LOC: HO.LAB 10:33
PROVIDERS: PCP Nurse Practitioner Family; Visit Provider Otolaryngology
DX: C73 Malignant neoplasm of thyroid gland (principal)
CPT/HCPCS: 36415; 80048; 82306; 83735; 83970; 84100; 84443; 85025; 85610; 85730

== ENCOUNTER 2024-05-22 10:57 | Outpatient (REF) | payer OTHER, SELFPAY ==
--- NOTE | ~2024-05-22 | CT_ITS ---
CLINICAL HISTORY: NEOPLASM OF THYROID GLAN CT soft tissue neck with contrast Comparison: None Findings: The visualized intracranial contents are unremarkable. No prevertebral fluid. Epiglottis is within normal limits. Pharyngeal mucosal space and parapharyngeal fat are normal. Salivary glands are unremarkable. No sialoliths. No significant anterior or posterior cervical adenopathy. Scattered subcentimeter lymph nodes are present. Lung apices are clear. There are 2 right-sided thyroid nodules identified, the largest within the lower pole measuring up to 18 mm, reference coronal image 36. A tiny left thyroid nodule noted on coronal image 40 measuring up 4 mm. No acute fracture or dislocation. IMPRESSION: Multiple thyroid nodules. No adenopathy or suspicious lesion outside the thyroid gland. This document has been electronically signed by: Gilberto Peterson MD on 05/25/2024 11:18:31
[2024-05-22] MEDS: iohexoL 350 MG/ML 75 ML INFUS..BTL 60 ML IV (13:01)
== END 2024-05-22 10:58 | disposition home or self-care (01) ==
LOC: HO.CT 10:57
PROVIDERS: PCP Nurse Practitioner Family; Visit Provider Otolaryngology
DX: C73 Malignant neoplasm of thyroid gland (principal)
CPT/HCPCS: 70491; Q9967

== ENCOUNTER → 2024-05-22 10:59 | Outpatient (BNV) | payer OTHER, SELFPAY | PROVIDERS: PCP Nurse Practitioner Family; Visit Provider Radiology Vascular & Interventional Radiology | DX: E04.2 Nontoxic multinodular goiter (principal) | CPT/HCPCS: 70491 ==

== ENCOUNTER 2024-06-07 10:13 | Outpatient (AMB) | payer OTHER, SELFPAY ==
--- NOTE | 2024-06-07 10:31 | A.OFFVIS_ITS ---
Vital Signs 06/07/24 10:32 Height 5 ft 3 in Weight 149 lb BMI 26.4 BP 134/74 Blood Pressure Location Rt brachial Position Sitting Pulse 86 Pulse Source Pulse Oximeter Pulse Oximetry (%) 100 Oxygen Delivery Method Room Air Intake Visit Reasons: 1 Month Follow UP Mirror Specialist Required: No Allergies hydrochlorothiazide Adverse Reaction (Mild, Verified 06/07/24 10:31) Nausea ibuprofen Adverse Reaction (Mild, Verified 06/07/24 10:31) Unknown cyclobenzaprine Adverse Reaction (Unknown, Verified 06/07/24 10:31) rapid heart rate Medication List - Last Reconciled 06/07/24 by Fawn Romero, [employer] REPRESENTATIVE acetaminophen (Tylenol) 650 mg (2 x 325 mg) PO Q4H PRN calcium-vitamin D3-vitamin K 650 mg-12.5 mcg-40 mcg (Viactiv) 1 tab PO DAILY cholecalciferol (vitamin D3) 25 mcg PO DAILY estradiol transdermal lidocaine 5% 1 patch topical DAILY lisinopril 5 mg PO DAILY HPI Comments Details: Patient presents back to the office today for follow-up, 1 month status post right lower back trigger point injections. She states 50% relief for 2 weeks then pain returned and is now at baseline Has been taking muscle relaxers with no improvement. Minimal relief with Tylenol No improvement with physical therapy or home exercise program Denies any new injury, medications, diagnoses, allergies since last visit Prior: Patient presented back to the office today for follow-up, one-week status post right diagnostic L3-L4 DR L5 medial branch blocks Reports no improvement in her pain, function or mobility in the hours after the injection Continues with right lower back pain, worse with palpation, movement and ?pressure? Prior: Patient presents back to the office today for follow-up, review of recent MRI MRI reviewed, results as per below Continues with 6/10 right lower back pain without radiation down her leg Pain is worse with sitting, twisting, driving and lying down Patient has completed physical therapy without improvement. She continues with home exercise program. No improvement with chiropractor, heat, ice, nonsteroidal anti-inflammatory medications, prescription medications, muscle relaxers. Initial Visit: Brook is a very pleasant 48-year-old female who presents to the office today for evaluation management of her chronic lower back pain. Endorses right lower back pain for approximately 3 years. Pain radiates down the right lower extremity to the foot She has completed physical therapy which did not improve her pain. She continues with home exercise program. Manual manipulation by chiropractor did not improve her pain. Pain recently exacerbated by discontinuation of her nonsteroidal anti- inflammatory medications. They were previously prescribed by her PCP but most recent workup she states after lab work and reports of increased bruising these were discontinued. She was trialed on Celebrex but did not find it helpful so that has also been discontinued. 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 Pain is also exacerbated by bending, twisting, moving and going up and downstairs. Pain with forward flexion, worse with extension In terms of muscle damage condition is described as stabbing, shooting, pinching, pins and needles Pain is negatively impacting patient's enjoyment life, general activity, work, sleep ability to function normally Denies red flag symptoms including new loss of bowel, bladder or saddle anesthesia Denies current use of anticoagulants Denies use of nicotine, tobacco, alcohol or illicit substances Denies implantable devices, pacemaker defibrillator [facility] Medical History (Updated 05/03/24 @ 12:45 by Shantell Thompson, [facility]) Vitamin D deficiency Lumbar radiculopathy Lumbar muscle pain Lower thoracic back pain Bilateral sciatica Muscle strain of chest wall No pertinent past medical history Surgical History No pertinent past surgical history Social History Housing: House Patient Tobacco Use Status: Never used Tobacco e-Cigarette/Vaping Use: Never Used Second Hand Smoke Exposure: Yes service: No Current occupational status: employed 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 Answers questions appropriately. Fully engaged in examination. Skin: warm, dry, intact HEENT: Normocephalic. Hearing intact. Cardiac: External chest normal in appearance. Respiratory: No cough, audible wheezing or stridor. Abdomen: without gross distension. Abdomen soft nontender, no guarding. No CVA tenderness MS: No obvious swelling or deformities. Neurological: Oriented to person, place, time and situation. Thought process intact. No gait abnormalities appreciated. Psychiatric: Appropriate mood and affect. Good judgment and insight. Results Reviewed Results Reviewed: 02/11/24 MR LS FINDINGS: Normal anatomic alignment. Mild degenerative disc disease at L1-L2 and from L3-L5. Associated mixed Modic type discogenic endplate changes including minimal Modic type I discogenic edema at L1-L2. No additional suspicious marrow edema. The vertebral body heights are well-maintained. The conus medullaris terminates at the level of L1. The distal spinal cord is normal in appearance. No significant abnormalities of the paraspinal musculature. Limited evaluation of the intra-abdominal structures without significant abnormalities. The abdominal aorta is of normal contour and caliber. AXIAL SPINAL LEVELS: L1-L2: Shallow diffuse disc bulge with superimposed left subarticular disc protrusion. There is no facet joint arthropathy. There is no neural foraminal stenosis. There is no spinal canal stenosis. L2-L3: Normal annular contour. There is mild bilateral facet joint arthropathy. There is no neural foraminal stenosis. There is no spinal canal stenosis. L3-L4: Mild diffuse disc bulge. There is mild bilateral facet joint arthropathy. There is mild left and no right neural foraminal stenosis. There is no spinal canal stenosis. L4-L5: Mild diffuse disc bulge. There is mild bilateral facet joint arthropathy. There is mild bilateral neural foraminal stenosis. There is no spinal canal stenosis. L5-S1: Normal annular contour. There is mild bilateral facet joint arthropathy. There is no neural foraminal stenosis. There is no spinal canal stenosis. 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 Most notably, there are mild neural foraminal narrowings at L3-L4 and L4-L5. No overt spinal canal stenosis or nerve root compression. Assessment & Plan Assessment & Plan (1) Lumbar spondylosis: Code(s): M47.816 - Spondylosis without myelopathy or radiculopathy, lumbar region Category: Medical (2) Lumbar muscle pain: Code(s): M79.18 - Myalgia, other site Category: Medical (3) Myofascial low back pain: Code(s): M54.50 - Low back pain, unspecified Category: Medical (4) Chronic low back pain: Code(s): M54.50 - Low back pain, unspecified; G89.29 - Other chronic pain Category: Medical Qualifiers: Back pain laterality: bilateral Sciatica presence: without sciatica Qualified Code(s): M54.50 - Low back pain, unspecified; G89.29 - Other chronic pain Plan Patient presented back to the office today for follow-up, 1 month status post right lower back trigger point injections Denies improvement in pain, function or mobility in the hours after the injections. Will trial gabapentin mg p.o. 3 times daily. Patient advised on cautions for use. She is also advised to call the office for questions or concerns after starting this medication. All questions and concerns were answered, patient agrees with the plan. Follow- up 1 month for medication review, sooner if needed Medications: New gabapentin May cause drowsiness, no driving while taking this medication. 100 mg PO TID 90 caps 3RF Coding Level of Care Code Est Pt Level 3 (85721) Complex EM visit Add On G2211 Diagnoses Lumbar spondylosis M47.816 Lumbar muscle pain M79.18 Myofascial low back pain M54.50 Chronic bilateral low back pain without sciatica M54.50; G89.29 Back pain laterality: bilateral Sciatica presence: without sciatica
[2024-06-07 10:32] VITALS: BP 134/74; PULSE 86; O2SAT 100; BMI 26.4
== END 2024-06-07 10:44 | disposition home or self-care (01) ==
PROVIDERS: PCP Nurse Practitioner Family; Visit Provider Registered Nurse Emergency
DX: M47.816 Spondylosis without myelopathy or radiculopathy, lumbar region (principal); M79.18 Myalgia, other site; M54.50 Low back pain, unspecified; G89.29 Other chronic pain
CPT/HCPCS: 99213; G2211

== ENCOUNTER → 2024-06-07 10:13 | Outpatient (BNVA) | payer OTHER, SELFPAY | PROVIDERS: PCP Nurse Practitioner Family; Visit Provider Registered Nurse Emergency | DX: M47.816 Spondylosis without myelopathy or radiculopathy, lumbar region (principal); M79.18 Myalgia, other site; G89.29 Other chronic pain | CPT/HCPCS: 99212 ==

== ENCOUNTER 2024-06-15 08:58 | Outpatient (AMB) | payer OTHER, SELFPAY ==
--- NOTE | 2024-06-15 09:15 | A.OFFPC_ITS ---
Vital Signs 06/15/24 09:20 Height 5 ft 3 in Weight 150 lb 4 oz BMI 26.6 BP 120/70 Blood Pressure Location Lt brachial Position Sitting Respiration 12 Pulse 68 Pulse Source Pulse Oximeter Temp 96.8 F Temp Source Oral Pulse Oximetry (%) 98 Oxygen Delivery Method Room Air Intake Visit Reasons: 3 WEEKS WITH ME FU HTN START LISINOPRIL Intake Note: Med follow up Bottle House Pumper Required: No Allergies hydrochlorothiazide Adverse Reaction (Mild, Verified 06/15/24 11:33) Nausea ibuprofen Adverse Reaction (Mild, Verified 06/15/24 11:33) Unknown cyclobenzaprine Adverse Reaction (Unknown, Verified 06/15/24 11:33) rapid heart rate Medication List - Last Reconciled 06/15/24 by NEGRITO Coffman-MATEO acetaminophen (Tylenol) 650 mg (2 x 325 mg) PO Q4H PRN calcium-vitamin D3-vitamin K 650 mg-12.5 mcg-40 mcg (Viactiv) 1 tab PO DAILY cholecalciferol (vitamin D3) 25 mcg PO DAILY estradiol transdermal gabapentin 100 mg PO TID lidocaine 5% 1 patch topical DAILY lisinopril 5 mg PO DAILY Tobacco use date assessed: 10/11/23 Dental Screening Dental Screen Date: 10/11/23 HPI HPI Comments History of Present Illness Details 49 y/o F with chronic back pain, osteope serge, htn, thyroid cancer, small vessel ischemic disease (brain mri 04/2024) Health Maintenance: Pap Mammo 11/12/23 normal DEXA 10/2023 Osteopenia, repeat 5 years start Ca+D Declined flu shot 2023 Colon never had referred today Specialists: Endo Optho December 08 2023 The patient is a 49-year-old female presenting with hypertension and thyroid issues. The patient's hypertension management was discussed, including a current practice of taking 5 mg of lisinopril sporadically only when blood pressure readings are high, specifically around 130 mmHg. She reports improved symptoms when taking medication, although it causes dizziness when the blood pressure drops too much. Too low for her is SBP 110's. Home BP log reviewed from the last visit. all SBP >100 and <150 DBP 70-80s Pulse 67-93 bpm Recent MRI indicated microvascular ischemia, attributed to uncontrolled hypertension. This was done to evaluate complaints of dizziness as well as headache. She reports headaches occurring every other day, associating their severity with spikes in blood pressure, and has found limited relief from acetaminophen. She was also being prepped for a complete thyroidectomy scheduled next due to a thyroid cancer, prior CAT scan did not show any extra-thyroidal disease. She will follow-up post-surgery with an supervisor of way and anticipates lifelong medication following the procedure. She was appointment with [facility] endocrinology today. General: Well developed, well nourished, in no acute distress. Appears stated age. Head: Normocephalic, atraumatic. Eye: EOMI,PERRLA, no photophobia Neck: Supple, no adenopathy , + thyromegaly, nontender, trachea midline Skin: No rashes, ulcers, or lesions noted. Turgor is good. Skin color is good. Hair and nails are without abnormalities. No bruising noted today. Neuro: grossly normal exam. Results Brain MRI 05/07/24: small vessel ischemic disease otherwise normal 05/25/24 CT of neck: IMPRESSION: Multiple thyroid nodules. No adenopathy or suspicious lesion outside the thyroid gland Plan: Discontinue lisinopril 5 mg daily and start lisinopril 2.5 mg daily with a goal of consistent blood pressure control. Advised to let me know if she has symptomatic hypotension which is diastolic blood pressure less than 90. Educated about nonischemic small-vessel disease and its implications. In regards to headaches, as blood pressure is controlled if they do not improve can consider alternative treatments. At this time the hope is that her headaches will improve with blood pressure control. Proceed with thyroidectomy at [facility] as scheduled in June. I will see you for a follow up within 7 days of discharge. Please stop with the front office to have this arranged. Patient was informed and verbally consented to the use of an ambient scribe for clinic note documentation during this visit. Discussion Notes I explained to the patient the importance of using lisinopril daily rather than on an as-needed basis to manage her hypertension effectively. The MRI findings of microvascular ischemia were discussed, underscoring the need for consistent blood pressure control to prevent further vascular damage. We reviewed the plan for her thyroidectomy, confirming that the procedure would occur next and that no metastatic disease was found in prior imaging. We also addressed her post-operative management and likely lifelong need for thyroid hormone supplementation. We scheduled a follow-up appointment within seven days after discharge to assess post-operative status and ensure optimized blood pressure management. Patient Instructions - Take 2.5 mg of lisinopril every day as prescribed. - Follow up with the supervisor of way as scheduled post-surgery. - Attend follow-up appointment with me lobo even days post-discharge. - Monitor blood pressure regularly and n ote readings. - Prepare for thyroidectomy next y, ensuring all pre-operative instructions are followed. - Contact the office if experiencing any new or worsening symptoms, or if there are concerns post-surgery. Total time spent caring for the patient today was 45 minutes. This includes time spent before the visit reviewing the chart, time spent during the visit, and time spent after the visit on documentation, reviewing laboratory results, diagnostic imaging, medications, performing a medically necessary evaluation, counseling on diagnoses, care coordination, ordering appropriate tests, ordering appropriate medications, review of tests performed by other providers, reporting test results with the patient, communication with other healthcare providers. 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 1. Little interest or pleasure in doing things: not at all 2. Feeling down, depressed, or hopeless: nearly every day 3. Trouble falling or staying asleep, or sleeping too much: not at all 4. Feeling tired or having little energy: several days 5. Poor appetite or overeating: nearly every day 6. Feeling bad about yourself - or that you are a failure or have let yourself or your family down: not at all 7. Trouble concentrating on things, such as reading the newspaper or watching television: not at all 8. Moving or speaking so slowly that other people could have noticed. Or the opposite - being so fidgety or restless that you have been moving around a lot more than usual: not at all 9. Thoughts that you would be better off or of hurting yourself in some way: not at all Total score: 7 Depression Screening Interpretation: Positive (relative to her health ) Depression Screening Done: Yes 46868 - PHQ-9 Billing: Yes Source: Developed by Drs. Chilango Arenas, Giulia Van, Yousif jasmine nd colleagues, with an educational robert from [employer]. Thrive Questionnaire Date Thrive assessed: 06/15/24 I am a: Patient What is your living situation today?: I have a steady place to live Within the past 12 months, did the food you bought not last and you didn't have the money to get more?: Never true Within the past 12 months, did you worry whether your food would run out before you got money to buy more?: Never true Do you have trouble paying for medicines?: No Do you have trouble getting transportation to medical appointments?: No Do you have trouble paying your heating and electricity bill?: No Do you have trouble taking care of your child, family member or friend?: No Do you have trouble with day-to-day activities such as bathing, preparing meals, shopping, managing finances, etc.?: No Are you currently unemployed and looking for a job?: No Are you interested in more education?: Yes Please select the resources that you would like help with: None Currently or been in a relationship where the following occur: No concerns reported THRIVE Score: 0 AUDIT C Alcohol Use Questionnaire (AUDIT-C) 1. How often do you have a drink containing alcohol?: Monthly or less 2. How many drinks containing alcohol do you have on a typical day when you are drinking?: 1 or 2 3. How often do you have six or more drinks on one occasion?: Never Total Score: 1 Score Reviewed/Action Taken: Yes MK-7 AMB Questionnaire MK-7 Date MK - 7 assessed: 06/15/24 Feeling nervous, anxious, or on edge: 1 = Several days Not being able to stop or control worryin = Several days Worrying too much about different things: 1 = Several days Trouble relaxin = Several days Being so restless that it is hard to sit still: 0 = Not at all Becoming easily annoyed or irritable: 0 = Not at all Feeling afraid as if something awful might happen: 0 = Not at all Total MK-7 score (0-4 normal; 5-9 mild; 10-14 moderate; 15-21 severe): 4 Source: Developed by Drs. Chilango Arenas, Giulia Van, Yousif Britt and colleagues, with an educational robert from [employer]. MK-7 Assessment Billing MK-7 Assessment Tool: MK-7 Assessment 34604 Physical exam (Primary Care) Vital Signs: Last Vital Signs Temp 96.8 F 06/15/24 09:20 Pulse 68 06/15/24 09:20 Resp 12 06/15/24 09:20 BP 120/70 06/15/24 09:20 Pulse Ox 98 06/15/24 09:20 Oxygen Delivery Method Room Air 06/15/24 09:20 BMI result Body Mass Index 26.6 Tobacco/Smoking Status: Tobacco use Status Tobacco use date assessed 10/11/23 06/15/24 09:18 Patient Tobacco Use Status Never used Tobacco 06/15/24 09:18 e-Cigarette/Vaping Use Never Used 06/15/24 09:18 PHQ-9: PHQ-9 Score PHQ-9: Total score 7 06/15/24 09:18 Depression Screening Interpretation: Positive (relative to her health ) Thrive Assessment: Date of Thrive Assessment Date Thrive assessed 06/15/24 06/15/24 09:18 Currently or been in a relationship where the following occur: No concerns reported Coding Level of Care Code Est Pt Level 5 (06779) Complex EM visit Add On G2211 Diagnoses Primary hypertension I10 Hypertension type: primary hypertension Cerebral microvascular disease I67.89 Thyroid cancer C73 Dizziness R42 Additional Codes MK-7 Assessment Billing - MK-7 Assessment Tool: MK-7 Assessment [id number] ([id number]) PHQ-9 - 67096 - PHQ-9 Billing: Yes ([id number]) Assessment & Plan Assessment & Plan (1) HTN (hypertension): Code(s): I10 - Essential (primary) hypertension Category: Medical Qualifiers: Hypertension type: primary hypertension Qualified Code(s): I10 - Essential (primary) hypertension (2) Cerebral microvascular disease: Comment: small vessel ischemic disease (brain mri 04/2024) Code(s): I67.89 - Other cerebrovascular disease Category: Medical (3) Thyroid cancer: Code(s): C73 - Malignant neoplasm of thyroid gland Category: Medical (4) Dizziness: Code(s): R42 - Dizziness and giddiness Category: Medical Plan . Medications: New lisinopril 2.5 mg PO DAILY 90 tabs 2RF Discontinued lisinopril Discontinued Reason: Doctor's Order 5 mg PO DAILY 90 tabs 1RF
[2024-06-15 09:20] VITALS: BP 120/70; PULSE 68; RESP 12; TEMP 36; O2SAT 98; BMI 26.6
== END 2024-06-15 10:06 | disposition home or self-care (01) ==
PROVIDERS: PCP Nurse Practitioner Family; Visit Provider Nurse Practitioner Family
DX: I10 Essential (primary) hypertension (principal); I67.89 Other cerebrovascular disease; C73 Malignant neoplasm of thyroid gland; R42 Dizziness and giddiness

== ENCOUNTER → 2024-06-15 08:58 | Outpatient (BNVA) | payer OTHER, SELFPAY | PROVIDERS: PCP Nurse Practitioner Family; Visit Provider Nurse Practitioner Family | DX: E04.2 Nontoxic multinodular goiter (principal); M85.852 Other specified disorders of bone density and structure, left thigh; I10 Essential (primary) hypertension; I67.89 Other cerebrovascular disease; C73 Malignant neoplasm of thyroid gland; R42 Dizziness and giddiness | CPT/HCPCS: 96127; 99212 ==

== ENCOUNTER 2024-06-15 11:27 | Outpatient (AMB) | payer OTHER, SELFPAY ==
[2024-06-15 11:29] VITALS: BP 92/70; PULSE 76; BMI 26.7
--- NOTE | 2024-06-15 11:29 | MHC.OFFVIS ---
Vital Signs 06/15/24 11:29 Height 5 ft 3 in Weight 150 lb 9.211 oz BMI 26.7 BP 92/70 Blood Pressure Location Rt brachial Position Sitting Pulse 76 Pulse Source Pulse Oximeter Intake Visit Reasons: multiple thyroid nodules Intake Note: Patient present today for multiple thyroid nodules office visit. Therapist Asst Required: No Accompanied by: Daughter Allergies hydrochlorothiazide Adverse Reaction (Mild, Verified 06/15/24 11:33) Nausea ibuprofen Adverse Reaction (Mild, Verified 06/15/24 11:33) Unknown cyclobenzaprine Adverse Reaction (Unknown, Verified 06/15/24 11:33) rapid heart rate HPI Comments Details: 49 YO F seen for fup for multinodular thyroid. HPI from prior visit Was initially diagnosed with multinodular thyroid in September 2023 on thyroid US . PCP had palpated the nodules. I reviewed the images myself in the ultrasound shows a right dominant lower pole 2.5 cm nodule, mixed cystic solid, isoechoic TR 2 category. per RUBINA this is a very low suspicion nodule with less than 3% chance of malignancy however given the size is greater than 2 cm needs to be biopsied. Other nodules the right upper 1 cm TR 3 category and the left subcentimeter nodules also noted. Labs from 10/14 normal TSH No dysphagia or hoarseness of voice. Denies sensation of swelling in the neck or difficulty breathing while lying flat. Denies any tenderness in the neck. Denies any palpitations, tremors, weight loss, frequent bowel movements. Denies any ocular complaints, blurred or double vision. Denies hair loss, dry skin, heat or cold intolerance, weight gain, confusion. Does have constipation. Denies any history of head or neck irradiation. Denies any family history of thyroid cancer Mother hx of thyroid nodules . Underwent FNA biopsy of the right lower pole 2.5 cm nodule on 03/22/2024, results: AUS with follicular cells with nuclear atypia, [place] category 3, Afirma: NRAS mutation detected, suspicious findings with 75% risk of malignancy Interval history She was evaluated by Dr. Mckinney at [facility] and is scheduled for total thyroidectomy on 06/22/[address] soft tissue neck 05/25/2024 which did not identify any lymphadenopathy. 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 She is on HRT estrogen patches and mirena. She takes 500 units of vitamin D daily in the viactive which has 650 mg of calcium OTherwise not eating milk, cheese , yogurt due to nausea BMD October 2023 showed osteopenia of the hip per z score of -2.2 No fractures Walks daily Last visit also started on vitamin D 1000 units daily in addition to the 1 in Viactiv. Review of systems Constitutional: no fevers, chills HEENT: no changes in vision Cardiac: No chest pain, discomfort or palpitations. Pulmonary: No SOB GI:No abdominal pain, no nausea or vomiting, no anorexia, no blood in stool : no burning micturition, dysuria or increase in urinary frequency Physical exam General: sitting comfortably in no acute distress HEENT: normocephalic/atraumatic, Neck: supple, symmetrical, palpable 2 cm thyroid nodule on right side , no dorsocervical or supraclavicular fat pads Cardiac: normal heart sounds Pulm: normal breath sounds B/L, no added breath sounds Abd: not distended, no tenderness Extremities: no edema, no signs of myxedema Neuro: AAO x3, Speech: normal, no facial droop, moving all 4 extremities Laboratory Tests 08/07/21 10/12/23 11:25 10:[address] soft tissue neck with contrast 05/25/24 Comparison: None Findings: The visualized intracranial contents are unremarkable. No prevertebral fluid. Epiglottis is within normal limits. Pharyngeal mucosal space and parapharyngeal fat are normal. Salivary glands are unremarkable. No sialoliths. No significant anterior or posterior cervical adenopathy. Scattered subcentimeter lymph nodes are present. Lung apices are clear. There are 2 right-sided thyroid nodules identified, the largest within the lower pole measuring up to 18 mm, reference coronal image 36. A tiny left thyroid nodule noted on coronal image 40 measuring up 4 mm. No acute fracture or dislocation. IMPRESSION: Multiple thyroid nodules. No adenopathy or suspicious lesion outside the thyroid gland. This document has been electronically signed by: Gilberto Peterson MD on 05/25/2024 11:18:31 Thyroid US:10/21/2023 1. Location: Right upper pole. Size: 1.0 x 0.8 x 0.9 cm, volume 0.4 mL. Nodule characteristics: Composition: Mixed cystic and solid (1). Echogenicity: Hypoechoic (2). Shape: Not taller than wide (0). Margins: Ill-defined (0). Echogenic Foci: None (0). ACR TI-RADS total points: 3 ACR TI-RADS category: 3 2. Location: Right lower pole. Size: 2.5 x 1.5 x 1.7 cm, volume 3.1 mL. Nodule characteristics: Composition: Solid/almost completely solid (2). Echogenicity: Isoechoic (1). Shape: Not taller than wide (0). Margins: Ill-defined (0). Echogenic Foci: None (0). ACR TI-RADS total points: 3 ACR TI-RADS category: 3 3. Location: Left mid pole. Size: 0.3 x 0.2 x 0.3 cm, volume 0.009 mL. Nodule characteristics: Composition: Solid (2). Echogenicity: Hyperechoic (1). Shape: Not taller than wide (0). Margins: Ill-defined (0). Echogenic Foci: None (0). ACR TI-RADS total points: 3 ACR TI-RADS category: 3 NODES: No lymphadenopathy is seen in the tissue surrounding the thyroid gland. US/US thyroid IMPRESSION: Bilateral thyroid nodules, largest 2.5 cm right lower TR3 nodule. Recommend followup ultrasound in 12 months. 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 Patient does not have any compressive symptoms. Normal TSH from September 2023.I reviewed the images myself in the ultrasound shows a right dominant lower pole 2.5 cm nodule, mixed cystic solid, Other nodules the right upper 1 cm TR 3 category and the left subcentimeter nodules also noted. Underwent FNA biopsy of the right lower pole 2.5 cm nodule on 03/22/2024, results: AUS with follicular cells with nuclear atypia, [place] category 3, Afirma: NRAS mutation detected, suspicious findings with 75% risk of malignancy ?Point mutations in the?HRAS,?KRAS, and?NRAS?dipesh-oncogenes have been identified in both follicular adenomas and follicular cancers.Approximately 30 percent of follicular thyroid cancers have SHANKAR mutations with the?NRAS?mutations being more common than?HRAS?and?KRAS?. Overexpression of normal c-myc and c-fos genes, as well as mutations of?HRAS,?NRAS, and?KRAS?dipesh-oncogenes, are found in follicular adenomas, follicular cancers, and occasionally papillary cancers . These abnormalities may confer a growth-promoting effect that is not specific for tumor type. She was evaluated by Dr. Mckinney at [facility] and is scheduled for total thyroidectomy on 06/22/[address] soft tissue neck 05/25/2024 which did not identify any lymphadenopathy. Also explained to her risk of complication of hypocalcemia/hypoparathyroidism, she is on 1500 units of vitamin-D daily, I have asked her to continue this. Vitamin-D levels at 39.2 from 05/18/2024. Also discussed with the patient that she will require to go on levothyroxine after surgery, appropriate administration and importance of adherence. Based on her weight she will require about 112 mcg of levothyroxine to start with. I will see her back in 6 weeks which would be 5 weeks after her surgery and I have asked her to do blood work with TSH and free T4 prior to that. Post thyroidectomy I will also obtain records of both operative notes and surgical pathology from Dr. Hines's office. (2) Osteopenia: Comment: 10/2023 femur, repeat 5 years Code(s): M85.80 - Other specified disorders of bone density and structure, unspecified site Category: Medical Qualifiers: Osteopenia location: femoral neck Laterality: left Qualified Code(s): M85.852 - Other specified disorders of bone density and structure, left thigh Plan: Not addressed today: Patient has a history of bilateral oophorectomy in 2018 due to history of torsion, benign neoplasm per the patient. She has subsequently been placed on hormone replacement therapy with the estradiol patches and also has a Mirena IUD. Bone density done in October 2023 showed osteopenia of the right femoral neck with a Z-score of-2.2. She is on vitamin-D 500 units daily as part of her calcium supplement which is 650 mg daily she is not really taking much calcium intake and her nutrition otherwise due to having GI intolerance to dairy products. I advised her about importance of bone health with incorporating at least 1000 units of vitamin-D daily in her supplement. Also needs 1000 mg of calcium overall from diet and supplement. Also advised about the importance of weight-bearing exercise on bone health. Plan: -continue taking vitamin-D 1500 units daily. -incorporate 500-600 mg of calcium in your diet through not dairy products suggest fortified bread, spinach, almonds in addition to your 650 mg of calcium in supplement -30 minutes of weight-bearing exercise daily, incorporate resistance training in your lifestyle such as lifting weights, resistance bands -continue hormone replacement therapy with estrogen patch and Mirena IUD. Plan See above Orders: Orders Thyroid Stimulating Hormone 6 Weeks E04.2 - Nontoxic multinodular goiter Free T4 (Free Thyroxine) 6 Weeks E04.2 - Nontoxic multinodular goiter Patient Instructions: I will see you back in 6 weeks Please do blood work 3-4 days prior to that If your pathology shows cancer, please send me a portal message Please tell Dr. Mckinney's office to send all operative notes plus surgical pathology once available to my office Continue vitamin D After the surgery you will be started on levothyroxine Always take this fasting first thing in the morning and wait an hour after to have breakast/coffee/tea Coding Level of Care Code Est Pt Level 3 (99103) Diagnoses Multiple thyroid nodules E04.2 Osteopenia of neck of left femur M85.852 Osteopenia location: femoral neck Laterality: left
== END 2024-06-15 12:05 | disposition home or self-care (01) ==
PROVIDERS: PCP Nurse Practitioner Family; Visit Provider Student in an Organized Health Care Education/Training Program
DX: E04.2 Nontoxic multinodular goiter (principal); M85.852 Other specified disorders of bone density and structure, left thigh
CPT/HCPCS: 99213

== ENCOUNTER 2024-06-30 09:48 | Outpatient (AMB) | payer OTHER, SELFPAY ==
--- NOTE | 2024-06-30 10:29 | A.OFFPC_ITS ---
Vital Signs 3 06/30/24 10:34 Height 5 ft 3 in Weight 147 lb BMI 26.0 BP 122/70 Blood Pressure Location Rt brachial Position Sitting Respiration 12 Pulse 83 Pulse Source Pulse Oximeter Temp 97.1 F Temp Source Oral Pulse Oximetry (%) 97 Oxygen Delivery Method Room Air Intake Visit Reasons: Jun 29 or for HDF 30 min Intake Note: HDF follow up Front Maker Lockstitch Required: No Allergies hydrochlorothiazide Adverse Reaction (Mild, Verified 06/30/24 10:44) Nausea ibuprofen Adverse Reaction (Mild, Verified 06/30/24 10:44) Unknown cyclobenzaprine Adverse Reaction (Unknown, Verified 06/30/24 10:44) rapid heart rate Medication List - Last Reconciled 06/30/24 by NEGRITO Coffman-MATEO acetaminophen (Tylenol) 650 mg (2 x 325 mg) PO Q4H PRN calcium carbonate (Tums) 500 mg PO TID cholecalciferol (vitamin D3) 25 mcg PO DAILY estradiol transdermal gabapentin 100 mg PO TID lidocaine 5% 1 patch topical DAILY lisinopril 2.5 mg PO DAILY oxycodone-acetaminophen 5-325 mg (Percocet) 1 tab PO Q4-6H PRN Tobacco use date assessed: 06/30/24 Dental Screening Dental Screen Date: 06/30/24 Did you have a dental visit in the last 12 months?: Yes Did you have a dental problem in the last 6 months where you did not have access to dental care?: No Was dental information given to patient?: Patient has dentist HPI HPI Comments 2 History of Present Illness0 Details Here today for a Transitional Care Management Visit Discharge summary reviewed. Admission Date: 06/22/24 Discharge Date: 06/23/24 Hospital: [facility] Date of interactive contact with Nurse Monroy: as documented in chart Pending diagnostic tests/treatments: none Pending consults: none DME: none PT/OT/FISHING LINE WINDING MACHINE OPERATOR: none Referrals: none Medications reconciled & updated. During todays TCM visit, the d/c summary was reviewed, along with the need for or follow-up on pending diagnostic tests and treatments, as necessary interaction with other health furnace caretaker who will assume or reassume care of the beneficiary?s system-specific problems was done or is being worked on, education was provided to the beneficiary, family, guardian, and/or caregiver, referrals to establish or re-establish and arrange needed community resources we completed, assistance in scheduling required follow-up with community providers and services & finally updated medication list given to patient/caregiver Exam: Awake alert, accompanied by dtr RRR LS CTAB She has pain w/ palp below the incision on the R there is some very mild ecchymosis here. She also has pain w palp over sternoclenoidmastoid muscle on the left, worse w/ ROM. No edema BLE Negative Chvostek's? The patient is a 49-year-old female presenting for a hospital discharge follow- up appointment following a total thyroidectomy performed on June 22, with discharge on June 23. The surgery addressed a primary malignant neoplasm of the thyroid. The procedure was successful with no significant intraoperative complications. Post-operatively, the patient has been experiencing significant neck pain that has been persistent since the surgery. The pain intensity is reported to be high, causing the patient considerable distress and affecting sleep, with nights of limited rest. The pain is specifically located on the left side and seems to be exacerbated by certain positions, potentially relating to prolonged positioning during surgery. She has a has pain on the right side of the surgical incision The patient has tried oxycodone, Tylenol, and gabapentin to manage the pain, but reports limited relief. In addition, the patient reported two choking episodes occurring at home when swallowing solid foods such as ramen and rice. Following advice, she has altered her eating behavior to chew slowly and take small bites, which appears to improve her ability to swallow without choking. The patient has a history of migraines which have reportedly worsened following surgery. She experienced severe migraines, and nausea post-operatively and had instances of vomiting due to both the discomfort of swallowing multiple pills simultaneously and the associated migraines. She was follow up with the surgeon July 17. She has a follow up with her local affiliate manager She denies any fever, chills. No changes in her voice. No trouble breathing. The swelling in her lower extremities. Normal bowel and bladder elimination Results - Labs: Calcium level 8.7 on May t.. Discussion Notes During the visit, I discussed the management of the patient's post-surgical neck pain and the complications arising from her recent surgery. We reviewed the use of current medications, including gabapentin, and I advised against refilling oxycodone as it seems to provide minimal relief. I recommended consulting the endocrine specialist to evaluate the bruising and ensure no complications associated with vomiting post-surgery. I emphasized the importance of preventing further episodes of vomiting, particularly due to migraine, and provided a prescription for melt-away nausea medication. Follow-up with the surgeon on the thyroidectomy site and symptoms was advised. I addressed the need for slower and more cautious eating habits to prevent further choking episodes. A follow-up appointment was advised in 4-6 weeks to monitor her progress. Patient Instructions - Take gabapentin as prescribed for neck pain. - Utilize melt-away nausea medication fo r early signs of nausea to prevent vomiting. - Continue current medication regimen as directed, do not refill oxycodone. - Maintain eating practices of small bit es and slow chewing to avoid choking. - Schedule follow-up appointments as adv ised with endocrinology - Report any worsening of symptoms or ne w concerns promptly. - Rest as much as possible and manage ne ck pain with prescribed medications. Plan The patient continues to experience significant post-operative neck pain, which likely represents a muscular strain from the extended operative position. Utilization of gabapentin seems suitable here for neuropathic component management. Oxycodone will be discontinued due to limited efficacy. For her episodes of choking, further counseling on dietary modifications and eating techniques are emphasized to mitigate the risk of choking. Her migraines, exacerbated post-operatively, warrant cautious management using melt-away nausea medication to prevent vomiting and its associated strain on her surgical site. Efforts should be made to avoid multi-dose medication intake if tolerability is an issue. Regarding menstrual irregularities, particularly concerns about the missing IUD string, scheduling an ultrasound is prudent. Discussion with relevant specialists, including endocrinology and the surgical team, is recommended to ensure comprehensive management of her thyroidectomy and post-surgical complications. I called [facility] Endo to see if she could be evaled today, there was no appt avail. Call to surgeon, no return call. ADvised pt to call the surgeon and update on her pain. Continued monitoring and a follow-up visit in 4-6 weeks will allow us to reassess her recovery progress and any interventions required. Patient was informed and verbally consented to the use of an ambient scribe for clinic note documentation during this visit. Total time spent caring for the patient today was 60 minutes. This includes time spent before the visit reviewing the chart, time spent during the visit, and time spent after the visit on documentation, reviewing laboratory results, diagnostic imaging, medications, performing a medically necessary evaluation, counseling on diagnoses, care coordination, ordering appropriate tests, ordering appropriate medications, review of tests performed by other providers, reporting test results with the patient, communication with other healthcare providers. 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 1. Little interest or pleasure in doing things: not at all 2. Feeling down, depressed, or hopeless: not at all 3. Trouble falling or staying asleep, or sleeping too much: not at all 4. Feeling tired or having little energy: not at all 5. Poor appetite or overeating: not at all 6. Feeling bad about yourself - or that you are a failure or have let yourself or your family down: not at all 7. Trouble concentrating on things, such as reading the newspaper or watching television: not at all 8. Moving or speaking so slowly that other people could have noticed. Or the opposite - being so fidgety or restless that you have been moving around a lot more than usual: not at all 9. Thoughts that you would be better off or of hurting yourself in some way: not at all Total score: 0 Depression Screening Interpretation: Negative Depression Screening Done: Yes 76870 - PHQ-9 Billing: Yes Source: Developed by Drs. Chilango Arenas, Giulia Van, Yousif Britt and colleagues, with an educational robert from [employer]. Thrive Questionnaire Date Thrive assessed: 06/30/24 I am a: Patient What is your living situation today?: I have a steady place to live Within the past 12 months, did the food you bought not last and you didn't have the money to get more?: Never true Within the past 12 months, did you worry whether your food would run out before you got money to buy more?: Never true Do you have trouble paying for medicines?: No Do you have trouble getting transportation to medical appointments?: No Do you have trouble paying your heating and electricity bill?: No Do you have trouble taking care of your child, family member or friend?: No Do you have trouble with day-to-day activities such as bathing, preparing meals, shopping, managing finances, etc.?: No Are you currently unemployed and looking for a job?: No Are you interested in more education?: Yes Please select the resources that you would like help with: None Currently or been in a relationship where the following occur: No concerns reported THRIVE Score: 0 AUDIT C Alcohol Use Questionnaire (AUDIT-C) 1. How often do you have a drink containing alcohol?: Never 3. How often do you have six or more drinks on one occasion?: Never Total Score: 0 Score Reviewed/Action Taken: Yes MK-7 AMB Questionnaire MK-7 Date MK - 7 assessed: 06/30/24 Feeling nervous, anxious, or on edge: 0 = Not at all Not being able to stop or control worryin = Not at all Worrying too much about different things: 0 = Not at all Trouble relaxin = Not at all Being so restless that it is hard to sit still: 0 = Not at all Becoming easily annoyed or irritable: 0 = Not at all Feeling afraid as if something awful might happen: 0 = Not at all Total MK-7 score (0-4 normal; 5-9 mild; 10-14 moderate; 15-21 severe): 0 Source: Developed by Drs. Chilango Arenas, Giulia Van, Yousif Britt and colleagues, with an educational robert from [employer] MK-7 Assessment Billing MK-7 Assessment Tool: MK-7 Assessment 38162 Physical exam (Primary Care) Vital Signs: Last Vital Signs Temp 97.1 F 06/30/24 10:34 Pulse 83 02/07/25 10:34 Resp 12 06/30/24 10:34 BP 122/70 06/30/24 10:34 Pulse Ox 97 06/30/24 10:34 Oxygen Delivery Method Room Air 06/30/24 10:34 BMI result Body Mass Index 26.0 Tobacco/Smoking Status: Tobacco use Status Tobacco use date assessed 06/30/24 06/30/24 10:36 Patient Tobacco Use Status Never used Tobacco 06/30/24 10:36 e-Cigarette/Vaping Use Never Used 06/30/24 10:36 Depression Screening Interpretation: Negative Thrive Assessment: Date of Thrive Assessment Date Thrive assessed 06/30/24 06/30/24 10:36 Currently or been in a relationship where the following occur: No concerns reported Coding Level of Care Code TCM High MDM <= 14 days Diagnoses Hospital discharge follow-up Z09 Thyroid cancer C73 S/P complete thyroidectomy Z98.890; Z90.89 Post-op pain G89.18 Musculoskeletal neck pain M54.2 Additional Codes MK-7 Assessment Billing - MK-7 Assessment Tool: MK-7 Assessment [id number] ([id number]) PHQ-9 - 93517 - PHQ-9 Billing: Yes ([id number]) Assessment & Plan Assessment & Plan (1) Hospital discharge follow-up: Code(s): Z09 - Encounter for follow-up examination after completed treatment for conditions other than malignant neoplasm (2) Thyroid cancer: Code(s): C73 - Malignant neoplasm of thyroid gland Category: Medical (3) S/P complete thyroidectomy: Code(s): Z98.890 - Other specified postprocedural states; Z90.89 - Acquired absence of other organs Category: Surgical (4) Post-op pain: Code(s): G89.18 - Other acute postprocedural pain Category: Medical (5) Musculoskeletal neck pain: Code(s): M54.2 - Cervicalgia Category: Medical Plan . Medications: New 2 ondansetron 4 mg PO Q8H PRN 15 tabs 0RF nausea and vomiting 5 days tizanidine (Zanaflex) 2 mg (1/2 x 4 mg) PO BID PRN 5 tabs 0RF muscle spasticity 5 days
[2024-06-30 10:34] VITALS: BP 122/70; PULSE 83; RESP 12; TEMP 36.2; O2SAT 97; BMI 26.0
--- OUTSIDE RECORDS SUMMARY | 2024-06-30 10:34 | XMS_ITS | Clinical Summary ---
Author Organization [employer] Address [address] [facility] [address] [place] [address] Care Team Providers Care Ignition Mechanic Name Role Phone Joey Estrada DDJojo Primary Care Provider [phone] Social History Tobacco Use Types Packs/Day Years Used Date Smoking Tobacco: Never Assessed Comments Unknown Sex and Gender Information Value Date Recorded Sex Assigned at Female 04/03/2022 9:09 PM EST Legal Sex Female 8:38 PM EST Gender Identity Female 04/03/2022 8:38 PM EST Sexual Orientation Choose not to disclose 2022 10:24 AM EST Plan of Treatment Health Maintenance Due Date Last Done Comments CT Colonography 1977 Colonoscopy 1977 Colorectal Cancer Screening 1977 Depression Screening 1977 FIT DNA/Cologuard 1977 FIT 1977 FOBT 1977 Sigmoidoscopy 1977 Alcohol/Substance Use Screening 1989 Tobacco Screening 1989 Family Planning (PISQ) 01/26/1992 Pap Smear 1998 Cervical Cancer Screening 2007 HPV/Cotest 2007 Dental Prophylaxis 10/01/2015 04/01/2015 Dental Oral Exam 01/07/2022 07/09/2021, , 05/13/2015, Additional history exists Dental X-Ray: Bitewings 07/10/2022 07/09/19 22, 03/06/2018, 08/17/2017, Additional history exists Mammogram 02/14/2023 02/14/2021, 09/0 12/2019, 01/02/2019, Additional history exists COVID-19 Vaccine ( season) 2024 05/15/2021, 09/08/2020, 08/17/2020 Influenza Vaccine (#1) 2024 04/05/2018, 2011 Dental X-Ray: Full Mouth 07/10/2024 022, 10/11/2014, 09/05/2014 Zoster Vaccines (1 of 2) 2027 DTaP/Tdap/Td Vaccines (3 - Td or Tdap) 04/05/2028 04/05/2018, 01/05/2012, 10/13/2006 RSV Patients and Patients Aged 60 years or older (1 - 1-dose 75+ series) 01/26/2052 Hepatitis B Vaccines Completed 01/01/2009, 07/24/2008, 06/26/2008 HIB Vaccines Aged Out No longer eligi ble based on patient's age to complete this topic HPV Vaccines Aged Out No longer eligi ble based on patient's age to complete this topic Hepatitis A Vaccines Aged Out No long er eligible based on patient's age to complete this topic IPV Vaccines Aged Out No longer eligi ble based on patient's age to complete this topic Meningococcal Vaccine Aged Out No tasneem trevor eligible based on patient's age to complete this topic Pneumococcal Vaccine: Pediatrics (0 to 5 Years) and At-Risk Patients (6 to 49) Years) Aged Out No longer eligible based on patient's age to complete this topic RSV under 20 months Aged Out No longe r eligible based on patient's age to complete this topic Rotavirus Vaccines Aged Out No longer eligible based on patient's age to complete this topic Procedures Procedure Name Priority Date/Time Associated Diagnosis Comments DIAGNOSTIC - DIAGNOSTIC IMAGING - INTRAORAL - COMPREHENSIVE SERIES OF RADIOGRAPHIC IMAGES Routine 07/09/2021 12:00 AM EST PERIODIC ORAL EVALUATION - ESTABLISHED PATIENT Routine 07/09/2021 12:00 AM EST PROPHYLAXIS - ADULT Routine 04/01/2015 1 2:00 AM EST from Last 3 Months or Most Recently Relevant to Health Maintenance Insurance DENTAL - [employer] Care Teams Ignition Mechanic Relationship Specialty Start Date End Date Joey sEtrada DDS [address] [place] [address] [place] [address] PCP - General Dentist 03/20/22
--- OUTSIDE RECORDS SUMMARY | 2024-06-30 10:34 | XMS_ITS | Encounter Summary ---
Author Organization [employer] Address [address] [facility] [address] [place] [address] Care Team Providers Care Sheet Metal Duct Worker Supervisor Name Role Phone Joey Estrada DDS Primary Care Provider [phone] Encounter Details Date Type Department Care Team (Latest Contact Info) Description 07/09/2021 Abstract [facility] CONVERSIONS Dental, Provider, DDS Social History Tobacco Use Types Packs/Day Years Used Date Smoking Tobacco: Never Assessed Comments Unknown Sex and Gender Information Value Date Recorded Sex Assigned at Female 04/03/2022 9:09 PM EST Legal Sex Female 8:38 PM EST Gender Identity Female 04/03/2022 8:38 PM EST Sexual Orientation Choose not to disclose 2022 10:24 AM EST documented as of this encounter Plan of Treatment Not on file documented as of this encounter Visit Diagnoses Not on filedocumented in this encounter Care Teams Sheet Metal Duct Worker Supervisor Relationship Specialty Start Date End Date Joey Estrada DDS [address] [place] [address] PCP - General Dentist 03/20/22 documented as of this encounter
== END 2024-06-30 11:07 | disposition home or self-care (01) ==
PROVIDERS: PCP Nurse Practitioner Family; Visit Provider Nurse Practitioner Family
DX: C73 Malignant neoplasm of thyroid gland (principal); Z09 Encounter for follow-up examination after completed treatment for conditions other than malignant neoplasm; Z98.890 Other specified postprocedural states; Z90.89 Acquired absence of other organs; G89.18 Other acute postprocedural pain; M54.2 Cervicalgia

== ENCOUNTER → 2024-06-30 09:48 | Outpatient (BNVA) | payer OTHER, SELFPAY | PROVIDERS: PCP Nurse Practitioner Family; Visit Provider Nurse Practitioner Family | DX: Z09 Encounter for follow-up examination after completed treatment for conditions other than malignant neoplasm (principal); C73 Malignant neoplasm of thyroid gland; M54.2 Cervicalgia; G89.18 Other acute postprocedural pain; Z98.890 Other specified postprocedural states; Z90.89 Acquired absence of other organs | CPT/HCPCS: 96127; 99212 ==

== ENCOUNTER 2024-07-24 09:50 | Outpatient (REF) | payer SELFPAY ==
--- OUTSIDE RECORDS SUMMARY | 2024-07-24 11:03 | XMS_ITS | Encounter Summary ---
Author Organization [employer] Address [address] [place] [address] [address] [place] [address] Care Team Providers Care Facility Assistant Name Role Phone Joey Estrada DDS Primary Care Provider Encounter Details Date Type Department Care Team [...] on filedocumented in this encounter Care Teams Facility Assistant Relationship Specialty Start Date End Date Joey Estrada DDS [address] [place] [address] PCP - General Dentist 03/20/22 documented as of this encounter
--- OUTSIDE RECORDS SUMMARY | 2024-07-24 11:03 | XMS_ITS | Clinical Summary ---
Author Organization [employer] Address [address] [facility] [address] [place] [address] Care Team Providers Care Puddler Helper Name Role Phone Joey Estrada DDJojo Primary Care Provider Social History Tobacco Use Types Packs/Day Years [...] Procedure Name Priority Date/Time Associated Diagnosis Comments INTRAORAL - COMPLETE SERIES OF RADIOGRAPHIC IMAGES Routine 07/09/2021 12:00 AM EST PERIODIC ORAL EVALUATION - ESTABLISHED PATIENT Routine 07/09/2021 12:00 AM EST PROPHYLAXIS - ADULT Routine 04/01/2015 1 2:00 AM EST from Last 3 Months or Most Recently Relevant to Health Maintenance Insurance DENTAL - [employer] Care Teams Puddler Helper Relationship Specialty Start Date End Date Joey Estrada DDS [address] [place] [address] [place] [address] PCP - General Dentist 03/20/22
[2024-07-24 11:38] LABS: Free T4 (Free Thyroxine) 1.47 ng/dL (0.71-1.85); Thyroid Stimulating Hormone 0.12 uIU/mL (0.32-4.0)
== END 2024-07-24 09:51 | disposition home or self-care (01) ==
LOC: HO.LAB 09:50
PROVIDERS: PCP Nurse Practitioner Family; Visit Provider Student in an Organized Health Care Education/Training Program
DX: E04.2 Nontoxic multinodular goiter (principal)
CPT/HCPCS: 36415; 84439; 84443

== ENCOUNTER 2024-07-27 11:18 | Outpatient (AMB) | payer OTHER, SELFPAY ==
[2024-07-27 11:21] VITALS: BP 114/66; PULSE 80; O2SAT 99; BMI 25.9
--- NOTE | 2024-07-27 11:21 | A.OFFVIS_ITS ---
Vital Signs 3 07/27/24 11:21 Height 5 ft 3 in Weight 146 lb 2.294 oz BMI 25.9 BP 114/66 Blood Pressure Location Rt brachial Position Sitting Pulse 80 Pulse Source Pulse Oximeter Pulse Oximetry (%) 99 Oxygen Delivery Method Room Air Intake Visit Reasons: multiple thyroid nodules Intake Note: Patient present today for multiple thyroid nodules office visit. Other Sports Coach Or Instructor Required: No Accompanied by: Daughter Allergies hydrochlorothiazide Adverse Reaction (Mild, Verified 07/27/24 11:22) Nausea ibuprofen Adverse Reaction (Mild, Verified 07/27/24 11:22) Unknown cyclobenzaprine Adverse Reaction (Unknown, Verified 07/27/24 11:22) rapid heart rate Medication List - Last Reconciled 07/27/24 by Pauline Lawrence MD acetaminophen (Tylenol) 650 mg (2 x 325 mg) PO Q4H PRN calcium carbonate (Tums) 500 mg PO TID cholecalciferol (vitamin D3) 25 mcg PO DAILY estradiol transdermal gabapentin 100 mg PO TID levothyroxine 112 mcg PO DAILY lisinopril 2.5 mg PO DAILY ondansetron 4 mg PO Q8H PRN 5 days tizanidine (Zanaflex) 2 mg (1/2 x 4 mg) PO BID PRN 5 days HPI Comments Details: 49 YO F seen for fup for multinodular thyroid status post total thyroidectomy at [facility] on 06/22/2024. This is her 1st postoperative visit. HPI from prior visit Was initially diagnosed with multinodular thyroid in September 2023 on thyroid US . PCP had palpated the nodules. I reviewed the images myself in the ultrasound shows a right dominant lower pole 2.5 cm nodule, mixed cystic solid, isoechoic TR 2 category. per RUBINA this is a very low suspicion nodule with less than 3% chance of malignancy however given the size is greater than 2 cm needs to be biopsied. Other nodules the right upper 1 cm TR 3 category and the left subcentimeter nodules also noted. Labs from 10/14 normal TSH No dysphagia or hoarseness of voice. Denies sensation of swelling in the neck or difficulty breathing while lying flat. Denies any tenderness in the neck. Denies any palpitations, tremors, weight loss, frequent bowel movements. Denies any ocular complaints, blurred or double vision. Denies hair loss, dry skin, heat or cold intolerance, weight gain, confusion. Does have constipation. Denies any history of head or neck irradiation. Denies any family history of thyroid cancer Mother hx of thyroid nodules . Underwent FNA biopsy of the right lower pole 2.5 cm nodule on 03/22/2024, results: AUS with follicular cells with nuclear atypia, [place] category 3, Afirma: NRAS mutation detected, suspicious findings with 75% risk of malignancy Underwent CT soft tissue neck 05/25/2024 which did not identify any lymphadenopathy. Interval history She was evaluated by Dr. 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 Recovered well postoperatively, no issues with hypocalcemia. Labs 07/24/2024 showed low TSH of 0.12, normal free T4 1.47 Some intermittent need for clearing throat while eating but otherwise doing well Bone Health Also noted to have b/l oophorectomy in 2018 due to benign neoplasm and torsion. She is on HRT estrogen patches and mirena. She takes 500 units of vitamin D daily in the viactive which has 650 mg of calcium OTherwise not eating milk, cheese , yogurt due to nausea BMD October 2023 showed osteopenia of the hip per z score of -2.2 No fractures Walks daily on vitamin D 1000 units daily in addition to the 1 in Viactiv. Physical exam General: sitting comfortably in no acute distress HEENT: normocephalic/atraumatic, Neck:well healed surgical scar Cardiac: normal heart sounds Pulm: normal breath sounds B/L, no added breath sounds Abd: not distended, no tenderness Extremities: no edema, no signs of myxedema Neuro: AAO x3, Speech: normal, no facial droop, moving all 4 extremities Laboratory Tests 08/07/21 10/12/23 11:25 10:18 TSH 1.06 1.84 Laboratory Tests 04/26/24 05/18/24 07/24/24 10:25 10:55 10:11 Creatinine 0.81 Estimated GFR > 60 Calcium 9.3 D Phosphorus 2.5 L Magnesium 2.4 Albumin 4.3 25-OH Vitamin D Total 39.2 TSH 0.89 0.12 L Free T4 1.[address] soft tissue neck with contrast 05/25/24 Comparison: None Findings: The visualized intracranial contents are unremarkable. No prevertebral fluid. Epiglottis is within normal limits. Pharyngeal mucosal space and parapharyngeal fat are normal. Salivary glands are unremarkable. No sialoliths. No significant anterior or posterior cervical adenopathy. Scattered subcentimeter lymph nodes are present. Lung apices are clear. There are 2 right-sided thyroid nodules identified, the largest within the lower pole measuring up to 18 mm, reference coronal image 36. A tiny left thyroid nodule noted on coronal image 40 measuring up 4 mm. No acute fracture or dislocation. IMPRESSION: Multiple thyroid nodules. No adenopathy or suspicious lesion outside the thyroid gland. This document has been electronically signed by: Gilberto Peterson MD on 05/25/2024 11:18:31 Thyroid US:10/21/2023 1. Location: Right upper pole. Size: 1.0 x 0.8 x 0.9 cm, volume 0.4 mL. Nodule characteristics: Composition: Mixed cystic and solid (1). Echogenicity: Hypoechoic (2). Shape: Not taller than wide (0). Margins: Ill-defined (0). Echogenic Foci: None (0). ACR TI-RADS total points: 3 ACR TI-RADS category: 3 2. Location: Right lower pole. Size: 2.5 x 1.5 x 1.7 cm, volume 3.1 mL. Nodule characteristics: Composition: Solid/almost completely solid (2). Echogenicity: Isoechoic (1). Shape: Not taller than wide (0). Margins: Ill-defined (0). Echogenic Foci: None (0). ACR TI-RADS total points: 3 ACR TI-RADS category: 3 3. Location: Left mid pole. Size: 0.3 x 0.2 x 0.3 cm, volume 0.009 mL. Nodule characteristics: Composition: Solid (2). Echogenicity: Hyperechoic (1). Shape: Not taller than wide (0). Margins: Ill-defined (0). Echogenic Foci: None (0). ACR TI-RADS total points: 3 ACR TI-RADS category: 3 NODES: No lymphadenopathy is seen in the tissue surrounding the thyroid gland. US/US thyroid IMPRESSION: Bilateral thyroid nodules, largest 2.5 cm right lower TR3 nodule. Recommend followup ultrasound in 12 months. 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 Current occupational exposures/hazards: No Cognitive needs: No Hearing needs: No Vision needs: No Physical Exam Vital Signs: BMI result Body Mass Index 23.9 Assessment & Plan Assessment & Plan (1) Multiple thyroid nodules: Code(s): E04.2 - Nontoxic multinodular goiter Category: Medical (2) S/P complete thyroidectomy: Code(s): Z98.890 - Other specified postprocedural states; Z90.89 - Acquired absence of other organs Category: Surgical (3) Postsurgical hypothyroidism: Code(s): E89.0 - Postprocedural hypothyroidism Category: Medical Plan: Patient with no personal history of head or neck radiation, with no family history of thyroid cancer, who was diagnosed with thyroid nodules diagnosed September 2023 with ultrasound showing a right lower lobe dominant 2.5 cm nodule. Patient does not have any compressive symptoms. Normal TSH from September 2023.I reviewed the images myself in the ultrasound shows a right dominant lower pole 2.5 cm nodule, mixed cystic solid, Other nodules the right upper 1 cm TR 3 category and the left subcentimeter nodules also noted. Underwent FNA biopsy of the right lower pole 2.5 cm nodule on 03/22/2024, results: AUS with follicular cells with nuclear atypia, [place] category 3, Afirma: NRAS mutation detected, suspicious findings with 75% risk of malignancy Underwent CT soft tissue neck 05/25/2024 which did not identify any lymphadenopathy. Status post total thyroidectomy on 06/22/[address] Mckinney at [facility], pathology was benign and showed a 1.8 cm follicular adenoma in the right lower pole, an intrathyroidal parathyroid tissue, and a lymph node was examined which was negative for malignancy. Patient brought the pathology report, I will get the scan in 2 or system. Now here with postsurgical hypothyroidism, She is currently on levothyroxine 112 mcg daily. Her weight based dose is close to 105 mcg daily, and her most recent labs 07/22/2024 showed TSH was low at 0.12, with normal free T4. We will reduce the dose of levothyroxine to 100 mcg daily. She is also on Tums 1250 mg by taking 2-1/2 pills of 500 mg 3 times a day, denies any paresthesias. I have asked her to reduce her dose gradually. Plan: -reduce levothyroxine to 100 mcg daily, discussed appropriate administration -repeat TSH, free T4 in 6 weeks -reduced Tums to 2 pills twice a day, and then 1 pill twice a day and then if continues to not have any symptoms of paresthesias, stop it. If she has any symptoms of paresthesias, call our office immediately , after this you can go back to your Viactiv daily -continue vitamin-D 1000 units daily -we will also check calcium, albumin with thyroid labs in 6 weeks -follow up in 3 months Plan See above Orders: Orders 2 Free T4 (Free Thyroxine) 6 Weeks E89.0 - Postprocedural hypothyroidism, Z90.89 - Acquired absence of other organs, Z98.890 - Other specified postprocedural states Albumin Level 6 Weeks Z90.89 - Acquired absence of other organs, Z98.890 - Other specified postprocedural states Phosphorus 6 Weeks Z90.89 - Acquired absence of other organs, Z98.890 - Other specified postprocedural states Thyroid Stimulating Hormone 6 Weeks E89.0 - Postprocedural hypothyroidism, Z90.89 - Acquired absence of other organs, Z98.890 - Other specified postprocedural states Calcium 6 Weeks Z90.89 - Acquired absence of other organs, Z98.890 - Other specified postprocedural states Vitamin D 25-OH Total 6 Weeks Z90.89 - Acquired absence of other organs, Z98.890 - Other specified postprocedural states Medications: New 2 levothyroxine 100 mcg PO DAILY 30 tabs 5RF Patient Instructions: Decrease levothyroxine to 100 mcg daily, take it 1st thing in the morning on an empty stomach and wait at least 40 minutes before you have breakfast or drinks coffee. Continue taking vitamin D 1000 units daily Reduce your calcium supplements which is calcium carbonate (Tums), to taking 2 pills twice a day for 4-5 days and then take 1 pill twice a day for 4-5 days and then you can come off it if you are still feeling okay. If you experience any numbness or tingling in your arms or legs or around your mouth, call us immediately. Do blood work in 6 weeks Coding Level of Care Code Est Pt Level 4 (75049) Diagnoses Multiple thyroid nodules E04.2 S/P complete thyroidectomy Z98.890; Z90.89 Postsurgical hypothyroidism E89.0 Time Spent (min) 30
== END 2024-07-27 11:48 | disposition home or self-care (01) ==
PROVIDERS: PCP Nurse Practitioner Family; Visit Provider Student in an Organized Health Care Education/Training Program
DX: E04.2 Nontoxic multinodular goiter (principal); Z98.890 Other specified postprocedural states; Z90.89 Acquired absence of other organs; E89.0 Postprocedural hypothyroidism
CPT/HCPCS: 99214

== ENCOUNTER → 2024-07-27 11:18 | Outpatient (BNVA) | payer SELFPAY | PROVIDERS: PCP Nurse Practitioner Family; Visit Provider Student in an Organized Health Care Education/Training Program | DX: E04.2 Nontoxic multinodular goiter (principal); E89.0 Postprocedural hypothyroidism; Z98.890 Other specified postprocedural states; Z90.89 Acquired absence of other organs | CPT/HCPCS: 99212 ==

== ENCOUNTER 2024-09-01 09:02 | Outpatient (AMB) | payer OTHER, SELFPAY ==
--- NOTE | 2024-09-01 09:05 | MHC.PC.OV ---
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 Required: No Allergies hydrochlorothiazide Adverse Reaction (Mild, Verified 09/01/24 09:42) Nausea ibuprofen Adverse Reaction (Mild, Verified 09/01/24 09:42) Unknown cyclobenzaprine Adverse Reaction (Unknown, Verified 09/01/24 09:42) rapid heart rate Medication List - Last Reconciled 09/01/24 by Shantell Thompson, MICA MINER- acetaminophen (Tylenol) 650 mg (2 x 325 mg) PO Q4H PRN cholecalciferol (vitamin D3) 25 mcg PO DAILY estradiol transdermal gabapentin 100 mg PO TID levothyroxine 100 mcg PO DAILY lisinopril 2.5 mg PO DAILY ondansetron 4 mg PO Q8H PRN 5 days Tobacco use date assessed: 09/01/24 Dental Screening Dental Screen Date: 09/01/24 Did you have a dental visit in the last 12 months?: Yes Did you have a dental problem in the last 6 months where you did not have access to dental care?: No Was dental information given to patient?: Patient has dentist HPI HPI Comments History of Present Illness Details 49 y/o F with chronic back pain, osteopenia, htn, thyroid cancer, small vessel ischemic disease (brain mri 04/2024) Here today for close interim fu: Feels more tired and sleepy since reduction in levothyroxine; reports sx started about 1 week after reduction. + constipation. Denies problems swallowing, voice changes. No more choking. No more vomiting. Headaches cont. But not as bad. Taking APAP and this helped. Completed Tums, no longer taking. HTN: bp well controlled. No ACEI side effects. Mirena removed. Cont to feel crampy and having heavy bleeding x 5 days. Bleeding only stops for 1-2 weeks and then bleeds again. Taking APAP. Wonders about a new referral. Was going to [facility]. My notes previously indicated menopause, but this is not the case. She is perimenopausal. Exam: Awake alert, accompanied by dtr RRR LS CTAB Neck FROM, surgical incision well healed No edema BLE Negative Chvostek's? Neuro exam nonfocal Plan Refer to outside LO[facility] STOP CHECKER (Not [facility] or [facility]) per request Message sent to [facility] endo about sx Cont all meds as directed RTO end of September for CPE, sooner PRN Total time spent caring for the patient today was 30 minutes. This includes time spent before the visit reviewing the chart, time spent during the visit, and time spent after the visit on documentation, reviewing laboratory results, diagnostic imaging, medications, performing a medically necessary evaluation, counseling on diagnoses, care coordination, ordering appropriate tests, ordering appropriate medications, review of tests performed by other providers, reporting test results with the patient, communication with other healthcare providers. 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 Current occupational exposures/hazards: No Cognitive needs: No Hearing needs: No Vision needs: No Questionnaire Thrive Questionnaire Date Thrive assessed: 06/08/24 I am a: Patient What is your living situation today?: I have a steady place to live Within the past 12 months, did the food you bought not last and you didn't have the money to get more?: Never true Within the past 12 months, did you worry whether your food would run out before you got money to buy more?: Never true Do you have trouble paying for medicines?: No Do you have trouble getting transportation to medical appointments?: No Do you have trouble paying your heating and electricity bill?: No Do you have trouble taking care of your child, family member or friend?: No Do you have trouble with day-to-day activities such as bathing, preparing meals, shopping, managing finances, etc.?: No Are you currently unemployed and looking for a job?: No Are you interested in more education?: Yes Please select the resources that you would like help with: None Currently or been in a relationship where the following occur: No concerns reported THRIVE Score: 0 MK-7 AMB Questionnaire MK-7 Date MK - 7 assessed: 06/30/24 Source: Developed by Drs. Chilango Arenas, Giulia Van, Yousif Britt and colleagues, with an educational robert from [employer]. Physical exam (Primary Care) Vital Signs: Last Vital Signs Temp 97.6 F 09/01/24 09:10 Pulse 71 09/01/24 09:10 Resp 13 09/01/24 09:10 BP 142/76 H 09/01/24 09:10 Pulse Ox 96 09/01/24 09:10 Oxygen Delivery Method Room Air 09/01/24 09:10 BMI result Body Mass Index 26.4 Tobacco/Smoking Status: Tobacco use Status Tobacco use date assessed 09/01/24 09/01/24 09:08 Patient Tobacco Use Status Never used Tobacco 09/01/24 09:05 e-Cigarette/Vaping Use Never Used 09/01/24 09:05 Thrive Assessment: Date of Thrive Assessment Date Thrive assessed 06/08/24 09/01/24 09:05 Currently or been in a relationship where the following occur: No concerns reported Coding Level of Care Code Est Pt Level 4 (60352) Complex EM visit Add On G2211 Diagnoses Menometrorrhagia N92.1 Dysmenorrhea N94.6 Primary hypertension I10 Hypertension type: primary hypertension Postsurgical hypothyroidism E89.0 Thyroid cancer C73 S/P complete thyroidectomy Z98.890; Z90.89 Assessment & Plan Assessment & Plan (1) Menometrorrhagia: Code(s): N92.1 - Excessive and frequent menstruation with irregular cycle Category: Medical (2) Dysmenorrhea: Code(s): N94.6 - Dysmenorrhea, unspecified Category: Medical (3) HTN (hypertension): Code(s): I10 - Essential (primary) hypertension Category: Medical Qualifiers: Hypertension type: primary hypertension Qualified Code(s): I10 - Essential (primary) hypertension (4) Postsurgical hypothyroidism: Code(s): E89.0 - Postprocedural hypothyroidism Category: Medical (5) Thyroid cancer: Code(s): C73 - Malignant neoplasm of thyroid gland Category: Medical (6) S/P complete thyroidectomy: Code(s): Z98.890 - Other specified postprocedural states; Z90.89 - Acquired absence of other organs Category: Medical Plan . Orders: Referrals SHELL MOLD BONDER Referral N92.1 - Excessive and frequent menstruation with irregular cycle, N94.6 - Dysmenorrhea, unspecified
[2024-09-01 09:10] VITALS: BP 142/76; PULSE 71; RESP 13; TEMP 36.4; O2SAT 96; BMI 26.4
--- OUTSIDE RECORDS SUMMARY | 2024-09-01 09:19 | XMS_ITS | Encounter Summary ---
Author Organization [employer] Address [address] [place] [address] [address] [place] [address] Care Team Providers Care Tongue And Quarter Stitcher Name Role Phone Joey Estrada DDS Primary Care Provider [phone] Encounter Details Date Type Department Care Team [...] on filedocumented in this encounter Care Teams Tongue And Quarter Stitcher Relationship Specialty Start Date End Date Joey Estrada DDS [address] [place] [address] PCP - General Dentist 03/20/22 documented as of this encounter
--- OUTSIDE RECORDS SUMMARY | 2024-09-01 09:19 | XMS_ITS | Clinical Summary ---
Author Organization [employer] Address [address] [facility] [address] [place] [address] Care Team Providers Care Ornamental Brick Installer Name Role Phone Joey Estrada DDJojo Primary Care Provider [phone] Social History Tobacco Use Types Packs/Day Years [...] Insurance DENTAL - [employer] Care Teams Ornamental Brick Installer Relationship Specialty Start Date End Date Joey Estrada DDS [address] [place] [address] [place] [address] PCP - General Dentist 03/20/22
[2024-09-01 09:44] VITALS: BP 112/70
== END 2024-09-01 09:50 | disposition home or self-care (01) ==
LOC: HO.HMCFM 09:03
PROVIDERS: PCP Nurse Practitioner Family; Visit Provider Nurse Practitioner Family
DX: N92.1 Excessive and frequent menstruation with irregular cycle (principal); C73 Malignant neoplasm of thyroid gland; N94.6 Dysmenorrhea, unspecified; I10 Essential (primary) hypertension; E89.0 Postprocedural hypothyroidism; Z98.890 Other specified postprocedural states; Z90.89 Acquired absence of other organs

== ENCOUNTER → 2024-09-01 09:02 | Outpatient (BNVA) | payer OTHER, SELFPAY | PROVIDERS: PCP Nurse Practitioner Family; Visit Provider Nurse Practitioner Family | DX: N92.1 Excessive and frequent menstruation with irregular cycle (principal); N94.6 Dysmenorrhea, unspecified; I10 Essential (primary) hypertension; E89.0 Postprocedural hypothyroidism; C73 Malignant neoplasm of thyroid gland; Z98.890 Other specified postprocedural states; Z90.89 Acquired absence of other organs | CPT/HCPCS: 99212 ==

== ENCOUNTER 2024-09-04 07:30 | Outpatient (REF) | payer OTHER, SELFPAY ==
--- OUTSIDE RECORDS SUMMARY | 2024-09-04 07:33 | XMS_ITS | Clinical Summary ---
Author Organization [employer] Address [address] [facility] [address] [place] [address] Care Team Providers Care Entry Level Manager Name Role Phone oJey Estrada DDJojo Primary Care Provider [phone] Social History Tobacco Use Types Packs/Day Years [...] Insurance DENTAL - [employer] Care Teams Entry Level Manager Relationship Specialty Start Date End Date Joey Estrada DDS [address] [place] [address] [place] [address] PCP - General Dentist 03/20/22
--- OUTSIDE RECORDS SUMMARY | 2024-09-04 07:33 | XMS_ITS | Encounter Summary ---
Author Organization [employer] Address [address] [place] [address] 7[address] [place] [address] Care Team Providers Care Frame Operator Name Role Phone Joey Estrada DDS Primary Care Provider [phone] Encounter Details Date Type Department Care Team [...] on filedocumented in this encounter Care Teams Frame Operator Relationship Specialty Start Date End Date Joey Estrada DDS [address] [place] [address] PCP - General Dentist 03/20/22 documented as of this encounter
[2024-09-04 09:05] LABS: Albumin Level 3.8 g/dL (3.5-5.0); Phosphorus 2.9 mg/dL (2.7-4.5)
[2024-09-04 09:13] LABS: Free T4 (Free Thyroxine) 1.19 ng/dL (0.71-1.85); Thyroid Stimulating Hormone 0.11 uIU/mL (0.32-4.0)
== END 2024-09-04 07:31 | disposition home or self-care (01) ==
LOC: HO.LAB 07:30
PROVIDERS: PCP Nurse Practitioner Family; Visit Provider Student in an Organized Health Care Education/Training Program
DX: E89.0 Postprocedural hypothyroidism (principal); Z90.89 Acquired absence of other organs; Z98.890 Other specified postprocedural states
CPT/HCPCS: 36415; 82040; 82306; 82310; 84100; 84439; 84443

== ENCOUNTER 2024-09-20 07:28 | Outpatient (REF) | payer OTHER, SELFPAY ==
[2024-09-23 11:13] LABS: TS Negative Control Passed; TS Panel A 0; TS Panel B 0; TS Positive Control Passed; TSpotTB Negative (Negative)
== END 2024-09-20 07:29 | disposition home or self-care (01) ==
LOC: HO.LAB 07:28
PROVIDERS: PCP Nurse Practitioner Family; Visit Provider Nurse Practitioner Family
DX: Z11.1 Encounter for screening for respiratory tuberculosis (principal)
CPT/HCPCS: 36415; 86481

== ENCOUNTER 2024-10-06 13:08 | Emergency (ER) | payer OTHER, SELFPAY ==
--- NOTE | ~2024-10-06 | US_ITS ---
EXAMINATION: US PELVIS CLINICAL INFORMATION: Vaginal bleeding x16 days. COMPARISON: None available. TECHNIQUE: Ultrasound of the pelvis is performed using both transabdominal and transvaginal transducers along with Doppler. Transvaginal imaging is performed due to inadequate visualization transabdominally. FINDINGS: Uterus: The uterus is anteverted and measures 8.2 x 3.7 x 4.1 cm. The cervix has a normal appearance. The double wall endometrial thickness is 9 mm. Findings highly suggestive of endometrial polyp in the fundus of the endometrium measuring 1.1 x 0.4 x 0.4 cm. The uterus is smooth in contour and has normal myometrial echogenicity. No visible fibroid. Adnexa: The left ovary could not be visualized. The right ovary was seen.. There is normal color flow to the right adnexa. There is no right ovarian torsion. There is small volume free pelvic fluid, likely physiologic. Right ovary measures 2.4 x 0.7 x 0.8 cm. Volume equals 0.7 mL. Normal sonographic appearance. Left ovary could not be visualized. No left adnexal mass. US/US pelvic and transvaginal IMPRESSION: 1. Findings highly suggestive of endometrial polyp in the fundus of the endometrium measuring 1.1 x 0.4 x 0.4 cm. Uterus and endometrium otherwise normal. 2. Left ovary could not be visualized. No left adnexal masses. 3. Normal right ovary. 4. Trace free pelvic fluid, likely physiologic. Electronically signed by: Dimitri Alvarez MD 10/06/2024 02:54 PM EDT
[2024-10-06 13:31] VITALS: BP 149/87; PULSE 89; RESP 18; TEMP 36.3; O2SAT 100; BMI 26.2
--- NOTE | 2024-10-06 13:32 | ED_ITS ---
HPI - Female Genitourinary General Chief complaint: Urogenital-Female Stated complaint: Bleeding Time Seen by Provider: 10/06/24 16:01 Source: patient Mode of arrival: ambulatory Limitations: no limitations History of Present Illness ED Provider: Bruce ZAMBRANO HPI Narrative: 49 yo female who has history of thyroidectomy and is taking Levoxyl who presents to the ER with complaints of vaginal bleeding for the last 16 days. Patient reports she is using approximately 4 pads per day. She has bright red bleeding with clots at times. This is associated with pelvic cramping. Patient has an appointment on Wednesday with her fitting room inspector. She did speak to them of the phone yesterday and they recommended she seek care in the emergency room due to the continued bleeding and patient had complaints of dizziness. Patient reports she has had irregular bleeding since having a Mirena removed approximately 1-2 months ago. She is not currently taking any oral control. She is sexually active with 1 male partner. This is not a new male partner. She has low suspicion for STDs and does not want testing. Related Data Home Medications ?Medication ?Instructions ?Recorded ?Confirmed estradiol 0.1 mg/24 hr weekly transdermal 03/09/24 09/01/24 transdermal patch Previous Rx's ?Medication ?Instructions ?Recorded acetaminophen 325 mg capsule 650 mg (2 x 325 mg) PO Q4H PRN 12/26/23 (Tylenol) pain #30 caps cholecalciferol (vitamin D3) 25 25 mcg PO DAILY #30 caps 04/14/24 mcg (1,000 unit) capsule gabapentin 100 mg capsule 100 mg PO TID #90 caps 06/07/24 lisinopril 2.5 mg tablet 2.5 mg PO DAILY #90 tabs 06/15/24 ondansetron 4 mg disintegrating 4 mg PO Q8H PRN nausea and 06/30/24 tablet vomiting 5 days #15 tabs levothyroxine 100 mcg tablet 100 mcg PO DAILY #30 tabs 07/27/24 Allergies Allergy/AdvReac Type Severity Reaction Status Date / Time hydrochlorothiazide AdvReac Mild Nausea Verified 10/06/24 13:33 ibuprofen AdvReac Mild Unknown Verified 10/06/24 13:33 cyclobenzaprine AdvReac Unknown rapid Verified 10/06/24 13:33 heart rate Review of Systems 2 Review of Systems: Yes all other systems are reviewed and are negative Constitutional: Constitutional: Reports no additional constitutional complaints, Denies body ache(s), Denies chills, Denies fever(s), Denies headache(s) and Denies weakness Eyes: Eyes: Reports no additional eye complaints and Denies change in vision ENT: Reports system reviewed and no additional complaints, except as documented, Denies dizziness, Denies headache(s), Denies nasal congestion, Denies nasal discharge and Denies neck pain Cardiovascular: Cardiovascular: Reports no additional cardiovascular complaints, Denies chest pain, Denies leg edema and Denies dyspnea Respiratory: Respiratory: Reports no additional respiratory complaints, Denies cough and Denies dyspnea Gastrointestinal: Gastrointestinal: Reports no additional gastrointestinal complaints, Denies abdominal pain, Denies diarrhea, Denies nausea and Denies vomiting Genitourinary: Genitourinary: Reports no additional female genitourinary complaints, Reports abnormal vaginal bleeding, Denies dysuria, Reports pelvic pain and Denies urinary incontinence Musculoskeletal: Musculoskeletal: Reports no additional musculoskeletal complaints, Denies back pain, Denies arthralgias, Denies joint swelling, Denies neck pain, Denies numbness and Denies tingling Integumentary/Breasts: Skin/Breast: Reports system reviewed and no additional complaints, except as docu and Denies rash Neurologic: Reports system reviewed and no additional complaints, except as documented, Denies Abnormal speech present, Denies dizziness, Denies headache(s), Denies numbness, Denies tingling and Denies weakness PMFSH Past Medical History Attestation statement: The following information was validated with the patient. Source: old records reviewed and nursing notes reviewed Medical History Multiple thyroid nodules Postsurgical hypothyroidism Vitamin D deficiency Lumbar radiculopathy Lumbar muscle pain Lower thoracic back pain Bilateral sciatica Muscle strain of chest wall No pertinent past medical history Surgical History History of thyroidectomy Social History Social History Housing: House Patient Tobacco Use Status: Never used Tobacco Smoked in Last 30 Days: No e-Cigarette/Vaping Use: Never Used Second Hand Smoke Exposure: Yes Use of substances other than those prescribed or required for medical reasons: No Advance Directives: No Advance Directives Information Provided: Yes Do you have a plan to hurt others: No Plan Patient : No service: No Current occupational status: employed 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 Current occupational exposures/hazards: No Cognitive needs: No Hearing needs: No Vision needs: No Physical Exam 2 Vital Signs: Vital Signs: Last Vital Signs Temp 97.4 F 10/06/24 13:31 Pulse 89 10/06/24 13:31 Resp 18 10/06/24 13:31 BP 149/87 H 10/06/24 13:31 Pulse Ox 100 10/06/24 13:31 O2 Del Method Room Air 10/06/24 13:31 BMI result Body Mass Index 26.2 Const: General: cooperative, healthy appearing, comfortable and no acute distress Orientation/consciousness: patient oriented x3 Limitations: no limitations HEENT: Head: Yes normal to inspection Ears: hearing grossly normal bilaterally General nose exam: Normal external nose present Face and sinus: Yes normal facial exam Mouth: Normal oral and palatal mucosa present Throat: Yes posterior oropharynx normal Eyes: General: appearance normal, both eyes and all related structures P upils: Equal, round and reactive pupils present Neck: Neck: Yes normal visual inspection Chest: Chest palpation & inspection: normal inspection of the chest Resp: Effort & Inspection: normal respiratory effort Auscultation: clear to auscultation bilaterally Cardio: Rate: regular rate Rhythm: regular rhythm Peripheral pulses: P eripheral pulses 2+ throughout GI: Inspection: Yes normal to inspection Palpation (GI): Soft to palpation and nontender Auscultation: normal bowel sounds : Other: Co Teacher [facility] senior cytogenetic technologist Mild bleeding noted in the vaginal canal from the cervical OS External Female Exam: normal external appearance Speculum Exam - Vagina: normal appearance of the vagina Speculum Exam - Cervix: normal appearance of the cervix Bimanual exam- vagina & uterus: normal bimanual exam and no cervical motion tenderness Bimanual Exam- Adnexa, other: normal adnexae and no tenderness Back/Spine/Pelvis: Thoracic/Lumbar Spine: thoracic and lumbar spine normal to inspection Skin: General skin exam: no rashes or lesions noted Neuro: General: patient oriented x3, no focal motor deficits and normal sensation to monofilament Cranial nerves: Yes Equal, round and reactive pupils present Cognition (Neuro): normal cognition Speech: No Abnormal speech present Gait exam (Neuro): Normal gait present Motor exam (neuro): 5/5 motor strength present throughout Extrem: General: Yes normal to inspection Course Course Course Narrative: This is a Rapid Medical Exam performed in triage by Blanche Beebe PA-C. Full HPI, ROS and PE to be performed by primary ED provider. 49yo F presenting to the ED c/o bright red vaginal bleeding x16 days w/clots & abdominal pain. PE: Nontoxic appearing, ambulating with steady gait Plan: Labs, UA, ultrasound Reevaluation(s) Reevaluation #1: Ultrasound shows endometrial polyp. Hemoglobin is stable. UA shows no signs of infection. Patient has follow up with Gynecology in 3 days. Bleeding is mild to moderate. Hemodynamically stable. We will recommend she follow up on Wednesday. Reviewed worrisome signs and symptoms of when to return to the emergency room. Comfortable plan for discharge home Medical Decision Making Medical Decision Making [facility] Narrative: 49 yo female who has history of thyroidectomy and is taking Levoxyl who presents to the ER with complaints of vaginal bleeding for the last 16 days. Patient reports she is using approximately 4 pads per day. She has bright red bleeding with clots at times. This is associated with pelvic cramping. Patient has an appointment on Wednesday with her fitting room inspector. She did speak to them of the phone yesterday and they recommended she seek care in the emergency room due to the continued bleeding and patient had complaints of dizziness. Patient reports she has had irregular bleeding since having a Mirena removed approximately 1-2 months ago. She is not currently taking any oral control. She is sexually active with 1 male partner. This is not a new male partner. She has low suspicion for STDs and does not want testing. On exam abdomen soft/nontender. Pelvic exam shows mild bleeding. Deferred STI testing. Will send labs, UA, obtain US Differential Diagnosis Differential Diagnoses: The differential diagnosis associated with the presentation includes Dysmenorrhea, UTI, vaginal infection, anemia Admission/Observation Consideration of admission/observation: Escalation of care including admission/observation considered Lab Data [facility] Lab Attestation statement: I reviewed the patient's lab results. 10/06/24 13:48 10/06/24 13:48 Labs: Lab Results 10/06/24 10/06/24 Range/Units 13:48 16:52 WBC 7.0 (4.8-10.8) X10*3/uL RBC 4.52 (4.20-5.50) X10*6/uL Hgb 13.3 (12.0-16.0) g/dl Hct 39.2 (37.0-47.0) % MCV 86.7 (80.0-98.0) fL MCH 29.4 (27.0-33.0) pg MCHC 33.9 (31.0-35.0) g/dl RDW 13.0 (11.0-16.0) % Plt Count 323 (160-400) X10*3/uL MPV 8.9 L (9.4-12.3) fL Immature Gran % (Auto) 0.1 (0.0-0.4) % Neut % (Auto) 61.7 (45-73) % Lymph % (Auto) 28.2 (20-40) % [place] % (Auto) 8.6 (2-11) % Eos % (Auto) 0.3 (0-4) % Baso % (Auto) 1.1 (0-2) % Lymph # (Auto) 2.0 (1.2-4.9) X10*3/uL [place] # (Auto) 0.6 (0.1-1.2) X10*3/uL Eos # (Auto) 0.0 (0.0-0.4) X10*3/uL Baso # (Auto) 0.1 (0.0-0.2) X10*3/uL Abs Immat Gran (auto) 0.01 (0.00-0.03) X10*3/uL Absolute Neuts (auto) 4.3 (2.0-8.3) x10*3/uL Absolute Nucleated RBC 0.000 (0.0-0.012) X10*3/uL Nucleated RBC % (auto) 0.0 (0.0-0.2) /100WBC Sodium 140 (135-145) mmol/L Potassium 4.3 (3.3-5.1) mmol/L Chloride 107 (96-108) mmol/L Carbon Dioxide 26 (22-29) mmol/L Anion Gap 11 L (12-20) BUN 6 L (9-16) mg/dL Creatinine 0.69 (0.5-1.4) mg/dL Estim Creat Clear Calc 92.7 Estimated GFR > 60 Random Glucose 114 (60-115) mg/dL Calcium 9.4 (8.4-10.2) mg/dL Magnesium 2.1 (1.6-2.6) mg/dL Total Bilirubin 0.4 (0.0-1.0) mg/dL Direct Bilirubin 0.1 (0.0-0.5) mg/dL AST 18 (5-31) U/L ALT 14 (0-31) U/L Alkaline Phosphatase 92 (39-117) U/L Total Protein 7.1 (6.5-8.0) g/dL Albumin 4.2 (3.5-5.0) g/dL Lipase 18 (8-78) U/L Beta HCG, Quant < 2 mIU/mL Urine Color Yellow Urine Appearance Clear Urine pH 8.0 (5.0-9.0) Ur Specific [place] 1.010 (1.005-1.025) Urine Protein Negative (Neg-Trace) mg/dL Urine Glucose (UA) Negative (Negative) mg/dL Urine Ketones Negative (Negative) mg/dL Urine Blood Large (3+) H (Negative) Urine Nitrite Negative (Negative) Ur Leukocyte Esterase Trace H (Negative) Independent Interpretation I performed an independent interpretation of an: Ultrasound Interpretation: I independently reviewed the ultrasound and agree with the radiology report Radiology Impression Discussion of test interpretation with radiology: I have reviewed the radiologist's reading. Radiologist Impression: [place] [id number] Ultrasound Report Signed Patient: Brook Husain MR#: [id number] : 1975 Acct:[id number] Age/Sex: 49 / F ADM Date: 10/06/24 Loc: HO.ED Attending Dr: Ordering Physician: Blanche Beebe Date of Service: 10/06/24 Procedure(s): US pelvic and transvaginal Accession Number(s): [id number] cc: Shantell Thompson-BC; Blanche Beebe~ EXAMINATION: US PELVIS CLINICAL INFORMATION: Vaginal bleeding x16 days. COMPARISON: None available. TECHNIQUE: Ultrasound of the pelvis is performed using both transabdominal and transvaginal transducers along with Doppler. Transvaginal imaging is performed due to inadequate visualization transabdominally. FINDINGS: Uterus: The uterus is anteverted and measures 8.2 x 3.7 x 4.1 cm. The cervix has a normal appearance. The double wall endometrial thickness is 9 mm. Findings highly suggestive of endometrial polyp in the fundus of the endometrium measuring 1.1 x 0.4 x 0.4 cm. The uterus is smooth in contour and has normal myometrial echogenicity. No visible fibroid. Adnexa: The left ovary could not be visualized. The right ovary was seen.. There is normal color flow to the right adnexa. There is no right ovarian torsion. There is small volume free pelvic fluid, likely physiologic. Right ovary measures 2.4 x 0.7 x 0.8 cm. Volume equals 0.7 mL. Normal sonographic appearance. Left ovary could not be visualized. No left adnexal mass. US/US pelvic and transvaginal IMPRESSION: 1. Findings highly suggestive of endometrial polyp in the fundus of the endometrium measuring 1.1 x 0.4 x 0.4 cm. Uterus and endometrium otherwise normal. 2. Left ovary could not be visualized. No left adnexal masses. 3. Normal right ovary. 4. Trace free pelvic fluid, likely physiologic. Independent Historian Clinical information obtained from an independent historian. History obtained from or confirmed by: Other (daughter) Discharge Plan Discharge Clinical Impression: Vaginal bleeding Patient Disposition: Home, Self-Care Instructions: Menorrhagia (ED) Additional Instructions: Your ultrasound shows an endometrial polyp Follow-up with gynecology as scheduled Your blood work and urine is normal Return for increased bleeding (more then one pad per hour) Prescriptions: No Action acetaminophen [Tylenol] 325 mg capsule 650 mg PO Q4H PRN (Reason: pain) Qty: 30 0RF estradiol 0.1 mg/24 hr patch weekly transdermal cholecalciferol (vitamin D3) 25 mcg (1,000 unit) capsule 25 mcg PO DAILY Qty: 30 5RF lisinopril 2.5 mg tablet 2.5 mg PO DAILY Qty: 90 2RF gabapentin 100 mg capsule 100 mg PO TID Qty: 90 3RF Rx Instructions: May cause drowsiness, no driving while taking this medication. ondansetron 4 mg tablet,disintegrating 4 mg PO Q8H PRN (Reason: nausea and vomiting) 5 Days Qty: 15 0RF levothyroxine 100 mcg tablet 100 mcg PO DAILY Qty: 30 5RF Referrals: Shantell Thompson FNP-BC [Primary Care Provider] - 1 week Print Language: Slovenian
[2024-10-06 13:54] LABS: MANUAL DIFF FLAG NO
[2024-10-06 13:58] LABS: Basophils Absolute Auto 0.1 X10*3/uL (0.0-0.2); Basophils Percent Auto 1.1 % (0-2); Eosinophils Percent Auto 0.3 % (0-4); Hematocrit 39.2 % (37.0-47.0); Hemoglobin 13.3 g/dl (12.0-16.0); Imm Gran Abs Auto 0.01 X10*3/uL (0.00-0.03); Imm Gran Pct Auto 0.1 % (0.0-0.4); Lymphocytes Percent Auto 28.2 % (20-40); Mean Corpuscular HGB Conc 33.9 g/dl (31.0-35.0); Mean Corpuscular Hemoglobin 29.4 pg (27.0-33.0); Mean Corpuscular Volume 86.7 fL (80.0-98.0); Mean Platelet Volume 8.9 fL (9.4-12.3); Monocytes Absolute Auto 0.6 X10*3/uL (0.1-1.2); Monocytes Percent Auto 8.6 % (2-11); Neutrophils Absolute Auto 4.3 x10*3/uL (2.0-8.3); Neutrophils Percent Auto 61.7 % (45-73); Platelet Count 323 X10*3/uL (160-400); Red Blood Count 4.52 X10*6/uL (4.20-5.50)
[2024-10-06 14:19] LABS: Alanine Aminotransferase 14 U/L (0-31); Albumin Level 4.2 g/dL (3.5-5.0); Alkaline Phosphatase 92 U/L (39-117); Anion Gap 11 (12-20); Aspartate Amino Transferase 18 U/L (5-31); Bilirubin Direct 0.1 mg/dL (0.0-0.5); Bilirubin Total 0.4 mg/dL (0.0-1.0); Blood Urea Nitrogen 6 mg/dL (9-16); Calcium 9.4 mg/dL (8.4-10.2); Carbon Dioxide 26 mmol/L (22-29); Chloride 107 mmol/L (96-108); Creatinine Clr Calc Pharmacy 92.7; Estimated Glomerular Filt Rate > 60; Glucose Random 114 mg/dL (60-115); HCG Quantitative < 2 mIU/mL; Lipase 18 U/L (8-78); Magnesium 2.1 mg/dL (1.6-2.6); Potassium 4.3 mmol/L (3.3-5.1); Sodium 140 mmol/L (135-145); Total Protein 7.1 g/dL (6.5-8.0)
--- OUTSIDE RECORDS SUMMARY | 2024-10-06 16:02 | XMS_ITS | Encounter Summary ---
Author Organization [employer] Address [address] [place] [address] Care Team Providers Care It Systems Manager Name Role Phone Joey Estrada DDS Primary Care Provider [phone] Encounter Details Date Type Department Care Team [...] on filedocumented in this encounter Care Teams It Systems Manager Relationship Specialty Start Date End Date Joey Estrada DDS [address] [place] [address] PCP - General Dentist 03/20/22 documented as of this encounter
--- OUTSIDE RECORDS SUMMARY | 2024-10-06 16:02 | XMS_ITS | Clinical Summary ---
Author Organization [employer] Address [address] [place] [address] Care Team Providers Care Agile Java Developer Name Role Phone Joey Estrada DDJojo Primary Care Provider [phone] Social History Tobacco Use Types Packs/Day Years [...] Additional history exists Dental X-Ray: Bitewings 07/10/2022 07/09/19, 03/06/2018, 08/17/2017, Additional history exists Mammogram 02/14/2023 [...] patient's age to complete this topic Meningococcal B Vaccine Aged Out No l onger eligible based on patient's age to complete [...] Insurance DENTAL - [employer] Care Teams Agile Java Developer Relationship Specialty Start Date End Date Joey Estrada DDS [address] [place] [address] [place] [address] PCP - General Dentist 03/20/22
[2024-10-06 17:03] LABS: Appearance Urine Clear; Color Urine Yellow; Glucose Urine UA Negative (Negative); Leukocyte Esterase Urine Trace (Negative); Nitrite Urine Negative (Negative); UMIC TRIGGER UACC YES; Urine Blood Large (3+) (Negative); Urine Ketones Negative (Negative); Urine Protein Negative (Neg-Trace)
[2024-10-06 17:17] LABS: Bacteria Urine None Seen (None Seen); Hyaline Casts Urine 0-2 /LPF (0-2); Squamous Epithelial Cell Urine 0-2 /HPF (0-2); WBC Urine 0-5 /HPF (0-5)
[2024-10-06 17:21] VITALS: BP 135/77; PULSE 80; RESP 18; TEMP 36.6; O2SAT 99
[2024-10-06 17:22] VITALS: BP 135/77; PULSE 80; RESP 18; TEMP 36.6; O2SAT 99
== END 2024-10-06 17:23 | disposition home or self-care (01) ==
PROVIDERS: Physician Assistant; Emergency Provider Emergency Medicine Emergency Medical Services; PCP Nurse Practitioner Family
DX: N93.9 Abnormal uterine and vaginal bleeding, unspecified (principal); R10.2 Pelvic and perineal pain; R42 Dizziness and giddiness; Z79.899 Other long term (current) drug therapy; Z20.2 Contact with and (suspected) exposure to infections with a predominantly sexual mode of transmission
CPT/HCPCS: 36415; 76830; 76856; 80048; 80076; 81001; 81003; 83690; 83735; 84702; 85025; 99284

== ENCOUNTER → 2024-10-06 13:34 | Outpatient (BNV) | payer OTHER, SELFPAY | PROVIDERS: PCP Nurse Practitioner Family; Visit Provider Radiology Diagnostic Radiology | DX: N93.9 Abnormal uterine and vaginal bleeding, unspecified (principal) | CPT/HCPCS: 76830; 76856 ==

== ENCOUNTER 2024-11-28 08:24 | Outpatient (AMB) | payer OTHER, SELFPAY ==
[2024-11-28 08:27] VITALS: BP 118/80; PULSE 74; O2SAT 98; BMI 26.5
--- NOTE | 2024-11-28 08:27 | A.OFFVIS_ITS ---
Vital Signs 3 11/28/24 08:27 Height 5 ft 3 in Weight 149 lb 11.102 oz BMI 26.5 BP 118/80 Blood Pressure Location Lt brachial Position Sitting Pulse 74 Pulse Source Pulse Oximeter Pulse Oximetry (%) 98 Oxygen Delivery Method Room Air Intake Visit Reasons: Multiple thyroid nodules Intake Note: Patient present today for Multiple thyroid nodules office visit. Director Law Enforcement Required: No Accompanied by: Self / Same As Patient Allergies hydrochlorothiazide Adverse Reaction (Mild, Verified 11/28/24 08:30) Nausea ibuprofen Adverse Reaction (Mild, Verified 11/28/24 08:30) Unknown cyclobenzaprine Adverse Reaction (Unknown, Verified 11/28/24 08:30) rapid heart rate Medication List - Last Reconciled 11/28/24 by Pauline Lawrence MD acetaminophen (Tylenol) 650 mg (2 x 325 mg) PO Q4H PRN cholecalciferol (vitamin D3) 25 mcg PO DAILY estradiol transdermal gabapentin 100 mg PO TID levothyroxine 100 mcg PO DAILY lisinopril 2.5 mg PO DAILY ondansetron 4 mg PO Q8H PRN 5 days HPI Comments Details: 49 YO F seen for fup for multinodular thyroid status post total thyroidectomy at [facility] on 06/22/2024. This is her 1st postoperative visit. HPI from prior visit Was initially diagnosed with multinodular thyroid in September 2023 on thyroid US . PCP had palpated the nodules. I reviewed the images myself in the ultrasound shows a right dominant lower pole 2.5 cm nodule, mixed cystic solid, isoechoic TR 2 category. per RUBINA this is a very low suspicion nodule with less than 3% chance of malignancy however given the size is greater than 2 cm needs to be biopsied. Other nodules the right upper 1 cm TR 3 category and the left subcentimeter nodules also noted. Labs from 10/14 normal TSH No dysphagia or hoarseness of voice. Denies sensation of swelling in the neck or difficulty breathing while lying flat. Denies any tenderness in the neck. Denies any palpitations, tremors, weight loss, frequent bowel movements. Denies any ocular complaints, blurred or double vision. Denies hair loss, dry skin, heat or cold intolerance, weight gain, confusion. Does have constipation. Denies any history of head or neck irradiation. Denies any family history of thyroid cancer Mother hx of thyroid nodules . Underwent FNA biopsy of the right lower pole 2.5 cm nodule on 03/22/2024, results: AUS with follicular cells with nuclear atypia, Dolomite category 3, Afirma: NRAS mutation detected, suspicious findings with 75% risk of malignancy Underwent CT soft tissue neck 05/25/2024 which did not identify any lymphadenopathy. She was evaluated by Dr. 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 Interval history Recovered well postoperatively, no issues with hypocalcemia. Labs 07/24/2024 showed low TSH of 0.12, normal free T4 1.47 on levothyroxine was reduced to 100 mcg daily. Some intermittent need for clearing throat while eating but otherwise doing well Labs 09/04/2024 showed TSH still low at 0.11, free T4 1.19, normal vitamin-D of 37, normal calcium and albumin levels , she has been off the Tums We had asked her to do repeat labs prior to this appointment but no thyroid function repeated Currently she continues on levothyroxine 100 mcg daily. Reports increased tiredness Bone Health Also noted to have b/l oophorectomy in 2018 due to benign neoplasm and torsion. She is on HRT estrogen patches and mirena. She takes 500 units of vitamin D daily in the viactive which has 650 mg of calcium OTherwise not eating milk, cheese , yogurt due to nausea BMD October 2023 showed osteopenia of the hip per z score of -2.2 No fractures Walks daily on vitamin D 1000 units daily in addition to the 1 in Viactiv. Physical exam General: sitting comfortably in no acute distress HEENT: normocephalic/atraumatic, Neck:well healed surgical scar Cardiac: normal heart sounds Pulm: normal breath sounds B/L, no added breath sounds Abd: not distended, no tenderness Extremities: no edema, no signs of myxedema Neuro: AAO x3, Speech: normal, no facial droop, moving all 4 extremities Laboratory Tests 08/07/21 10/12/23 11:25 10:18 TSH 1.06 1.84 Laboratory Tests 04/26/24 05/18/24 07/24/24 10:25 10:55 10:11 Creatinine 0.81 Estimated GFR > 60 Calcium 9.3 D Phosphorus 2.5 L Magnesium 2.4 Albumin 4.3 25-OH Vitamin D Total 39.2 TSH 0.89 0.12 L Free T4 1.47 PTH Intact 44.3 Laboratory Tests 09/04/24 10/06/24 07:38 13:48 Estimated GFR > 60 Calcium 9.0 9.4 Phosphorus 2.9 Magnesium 2.1 Albumin 3.8 4.2 25-OH Vitamin D Total 37.0 TSH 0.11 L Free T4 1.19 CT soft tissue neck with contrast 05/25/24 Comparison: None Findings: The visualized intracranial contents are unremarkable. No prevertebral fluid. Epiglottis is within normal limits. Pharyngeal mucosal space and parapharyngeal fat are normal. Salivary glands are unremarkable. No sialoliths. No significant anterior or posterior cervical adenopathy. Scattered subcentimeter lymph nodes are present. Lung apices are clear. There are 2 right-sided thyroid nodules identified, the largest within the lower pole measuring up to 18 mm, reference coronal image 36. A tiny left thyroid nodule noted on coronal image 40 measuring up 4 mm. No acute fracture or dislocation. IMPRESSION: Multiple thyroid nodules. No adenopathy or suspicious lesion outside the thyroid gland. This document has been electronically signed by: Gilberto Peterson MD on 05/25/2024 11:18:31 Thyroid US:10/21/2023 1. Location: Right upper pole. Size: 1.0 x 0.8 x 0.9 cm, volume 0.4 mL. Nodule characteristics: Composition: Mixed cystic and solid (1). Echogenicity: Hypoechoic (2). Shape: Not taller than wide (0). Margins: Ill-defined (0). Echogenic Foci: None (0). ACR TI-RADS total points: 3 ACR TI-RADS category: 3 2. Location: Right lower pole. Size: 2.5 x 1.5 x 1.7 cm, volume 3.1 mL. Nodule characteristics: Composition: Solid/almost completely solid (2). Echogenicity: Isoechoic (1). Shape: Not taller than wide (0). Margins: Ill-defined (0). Echogenic Foci: None (0). ACR TI-RADS total points: 3 ACR TI-RADS category: 3 3. Location: Left mid pole. Size: 0.3 x 0.2 x 0.3 cm, volume 0.009 mL. Nodule characteristics: Composition: Solid (2). Echogenicity: Hyperechoic (1). Shape: Not taller than wide (0). Margins: Ill-defined (0). Echogenic Foci: None (0). ACR TI-RADS total points: 3 ACR TI-RADS category: 3 NODES: No lymphadenopathy is seen in the tissue surrounding the thyroid gland. US/US thyroid IMPRESSION: Bilateral thyroid nodules, largest 2.5 cm right lower TR3 nodule. Recommend followup ultrasound in 12 months. 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 Current occupational exposures/hazards: No Cognitive needs: No Hearing needs: No Vision needs: No Assessment & Plan Assessment & Plan (1) Multiple thyroid nodules: Code(s): E04.2 - Nontoxic multinodular goiter Category: Medical Plan: See below (2) S/P complete thyroidectomy: Code(s): Z98.890 - Other specified postprocedural states; Z90.89 - Acquired absence of other organs Category: Surgical Plan: See below (3) Postsurgical hypothyroidism: Code(s): E89.0 - Postprocedural hypothyroidism Category: Medical Plan: Patient with no personal history of head or neck radiation, with no family history of thyroid cancer, who was diagnosed with thyroid nodules diagnosed September 2023 with ultrasound showing a right lower lobe dominant 2.5 cm nodule. Patient does not have any compressive symptoms. Normal TSH from September 2023.I reviewed the images myself in the ultrasound shows a right dominant lower pole 2.5 cm nodule, mixed cystic solid, Other nodules the right upper 1 cm TR 3 category and the left subcentimeter nodules also noted. Underwent FNA biopsy of the right lower pole 2.5 cm nodule on 03/22/2024, results: AUS with follicular cells with nuclear atypia, Dolomite category 3, Afirma: NRAS mutation detected, suspicious findings with 75% risk of malignancy Underwent CT soft tissue neck 05/25/2024 which did not identify any lymphadenopathy. Status post total thyroidectomy on 06/22/[address] Mckinney at [facility], pathology was benign and showed a 1.8 cm follicular adenoma in the right lower pole, an intrathyroidal parathyroid tissue, and a lymph node was examined which was negative for malignancy. Now here with postsurgical hypothyroidism, She is currently on levothyroxine 100 mcg daily. Her weight based dose is close to 105 mcg daily, she is due for repeat labs Plan: -continue levothyroxine 100 mcg daily -do TSH and free T4 today, we will reach out with the results -follow up in 8 months Plan See above Patient Instructions: Do blood work we will reach out with results For now continue levothyroxine 100 mcg daily, we will let you know once we see you results if a dose change is needed Coding Level of Care Code Est Pt Level 3 (95964) Diagnoses Multiple thyroid nodules E04.2 S/P complete thyroidectomy Z98.890; Z90.89 Postsurgical hypothyroidism E89.0
--- OUTSIDE RECORDS SUMMARY | 2024-11-28 08:31 | XMS_ITS | Encounter Summary ---
Author Organization [employer] Address [address] [place] [address] Care Team Providers Care Manager Payer Name Role Phone Joey Estrada DDJojo Primary Care Provider Encounter Details Date Type [...] on filedocumented in this encounter Care Teams Manager Payer Relationship Specialty Start Date End Date Joey Estrada DDS [address] [facility] [place] [address] PCP - General Dentist 03/20/22 documented as of this encounter
== END 2024-11-28 08:43 | disposition home or self-care (01) ==
LOC: HO.ENCR 08:25
PROVIDERS: PCP Nurse Practitioner Family; Visit Provider Student in an Organized Health Care Education/Training Program
DX: E04.2 Nontoxic multinodular goiter (principal); Z98.890 Other specified postprocedural states; Z90.89 Acquired absence of other organs; E89.0 Postprocedural hypothyroidism
CPT/HCPCS: 99213

== ENCOUNTER 2024-11-28 08:46 | Outpatient (REF) | payer SELFPAY ==
[2024-11-28 10:46] LABS: Free T4 (Free Thyroxine) 1.05 ng/dL (0.71-1.85); Thyroid Stimulating Hormone 7.45 uIU/mL (0.32-4.0)
== END 2024-11-28 08:47 | disposition home or self-care (01) ==
LOC: HO.10HDL 08:46
PROVIDERS: Visit Provider Student in an Organized Health Care Education/Training Program
DX: E89.0 Postprocedural hypothyroidism (principal); E04.2 Nontoxic multinodular goiter; C73 Malignant neoplasm of thyroid gland; Z98.890 Other specified postprocedural states; Z90.89 Acquired absence of other organs; Z79.890 Hormone replacement therapy; Z79.3 Long term (current) use of hormonal contraceptives; Z79.899 Other long term (current) drug therapy
CPT/HCPCS: 36415; 84439; 84443; 99212

== ENCOUNTER → 2024-12-12 10:51 | Outpatient (BNVA) | payer SELFPAY | PROVIDERS: PCP Nurse Practitioner Family; Visit Provider Physician Assistant Medical | DX: Z02.79 Encounter for issue of other medical certificate (principal) ==

== ENCOUNTER 2025-05-18 09:46 | Outpatient (REF) | payer OTHER, SELFPAY ==
[2025-05-18 17:07] LABS: Appearance Urine Clear; Glucose Urine UA Negative (Negative); PH 8.5 (5.0-9.0); Specific Gravity - Urine 1.025 (1.005-1.025)
[2025-05-18 17:15] LABS: Hematocrit 43.9 % (37.0-47.0); Hemoglobin 14.5 g/dl (12.0-16.0); Mean Corpuscular HGB Conc 33.0 g/dl (31.0-35.0); Mean Corpuscular Hemoglobin 29.4 pg (27.0-33.0); Mean Corpuscular Volume 88.9 fL (80.0-98.0); NRBC Abs Auto 0.000 X10*3/uL (0.0-0.012); NRBC Pct Auto 0.0 /100WBC (0.0-0.2); Platelet Count 322 X10*3/uL (160-400); Red Blood Count 4.94 X10*6/uL (4.20-5.50); White Blood Count 5.9 X10*3/uL (4.8-10.8)
[2025-05-18 17:51] LABS: Microalbum/Creatinine Ratio Ur 4.0 ug/mg cr (<30)
[2025-05-18 18:06] LABS: Alanine Aminotransferase 14 U/L (0-31); Albumin Level 4.3 g/dL (3.5-5.0); Alkaline Phosphatase 79 U/L (39-117); Anion Gap 10 (12-20); Aspartate Amino Transferase 21 U/L (5-31); Blood Urea Nitrogen 6 mg/dL (9-16); Calcium 9.0 mg/dL (8.4-10.2); Carbon Dioxide 24 mmol/L (22-29); Chloride 110 mmol/L (96-108); Cholesterol 132 mg/dL (<200); Estimated Glomerular Filt Rate > 60; HDL Cholesterol 28 mg/dL (>40); Potassium 4.5 mmol/L (3.3-5.1); Sodium 139 mmol/L (135-145); Total Protein 7.0 g/dL (6.5-8.0); Triglycerides 74 mg/dL (<150)
[2025-05-18 18:24] LABS: Folate 8.6 ng/mL (> or = 4.0)
[2025-05-18 19:28] LABS: Vitamin B12 158 pg/mL (200-900)
== END 2025-05-18 09:47 | disposition home or self-care (01) ==
LOC: HO.WFDLDS 09:46
PROVIDERS: PCP Nurse Practitioner Family; Visit Provider Nurse Practitioner Family
DX: Z00.01 Encounter for general adult medical examination with abnormal findings (principal); R30.0 Dysuria; R53.83 Other fatigue; N76.2 Acute vulvitis; I10 Essential (primary) hypertension; M85.80 Other specified disorders of bone density and structure, unspecified site; M54.9 Dorsalgia, unspecified; G89.29 Other chronic pain; M85.852 Other specified disorders of bone density and structure, left thigh; E55.9 Vitamin D deficiency, unspecified; E89.0 Postprocedural hypothyroidism; Z90.89 Acquired absence of other organs; Z92.89 Personal history of other medical treatment; Z28.21 Immunization not carried out because of patient refusal; Z98.890 Other specified postprocedural states
CPT/HCPCS: 36415; 80053; 80061; 81003; 82043; 82306; 82570; 82607; 82746; 85027; 96127; 99212; 99396

== ENCOUNTER 2025-05-18 09:46 | Outpatient (AMB) | payer OTHER, SELFPAY ==
--- OUTSIDE RECORDS SUMMARY | 2025-05-18 09:50 | XMS_ITS | Encounter Summary ---
Author Organization [facility] Address [address] [place] [address] Phone Care Team Providers Care Track Inspecting Supervisor Name Role Phone Paula Pop EMISSIONS REPAIR TECHNICIAN Unavailable Camryn Dillon CNM Unavailable Ayde Riddle MD Unavailable Andi Verma MD Unavailable Dale Nava MD Unavailable Maddison Simmons MD Primary Care Provider [phone] Encounter Details Date Type Department Care Team (Late st Contact Info) Description 01/23/2020 Procedure Pass [facility], [address] [address] Social History Tobacco Use Types Packs/Day Years Used Date Smoking Tobacco: Never Smokeless Tobacco: Never Alcohol Use Standard Drinks/Week Comments No 0 (1 standard drink = 0.6 oz pur e alcohol) Comments No Sex and Gender Information Value Date Recorded Sex Assigned at Not on file Legal Sex Female 9:26 PM EDT Gender Identity Not on file Sexual Orientation Not on file documented as of this encounter Plan of Treatment Not on file documented as of this encounter Visit Diagnoses Not on filedocumented in this encounter Care Teams Track Inspecting Supervisor Relationship Specialty Start Date End Date Maddison Simmons MD [address] [place] [phone] PCP - General Internal Medicine 08/30/18 Paula Pop NP [address] [address] Historical LMR Provider 03/10/17 2 Camryn Dillon CNM [address] [place] [address] Historical LMR Provider 03/10/17 2 Ayde Riddle MD [address] [place] [id number] Historical LMR Provider 03/10/17 2 Andi Verma MD [address] [facility] [address] [place] [phone] [email or web address] Historical LMR Provider 03/10/17 05/31/21 Dale Nava MD [address] [place] [phone] Historical LMR Provider 03/10/17 2 documented as of this encounter Additional Source Comments The information contained in this document represents components of the legal health record. It is not the complete legal health record.[facility]
--- OUTSIDE RECORDS SUMMARY | 2025-05-18 09:50 | XMS_ITS | Encounter Summary ---
Author Organization [employer] Address [address] [facility] [address] [address] [place] [address] Care Team Providers Care Physicist [place] Name Role Phone Joey Estrada DDJojo Primary [...] on filedocumented in this encounter Care Teams Physicist [place] Relationship Specialty Start Date End Date Joey Estrada DDS [address] [facility] [address] PCP - General Dentist 03/20/22 documented as of this encounter
--- OUTSIDE RECORDS SUMMARY | 2025-05-18 09:50 | XMS_ITS | Clinical Summary ---
Author Organization [facility] Address [address] [place] [phone] Phone Care Team Providers Care Multimedia Engineer Name Role Phone Maddison Simmons MD Primary Care Provider [phone] Allergies Active Allergy Reactions Criticality Noted Date Comments Cyclobenzaprine 06/20/2024 Hydrochlorothiazide 06/20/2024 Ibuprofen 06/20/2024 Medications VIACTIV 650 mg-12.5 mcg-40 mcg Chew Take 1 tablet by mouth every morning. 04/28/2024 Active gabapentin (NEURONTIN) 100 MG capsule TAKE 1 CAPSULE ORALLY 3 TIMES A DAY MAY CAUSE DROWSINESS, NO DRIVING WHILE TAKING THIS MEDICATION. 06/07/2024 Active lisinopril (PRINIVIL,ZESTR IL) 2.5 MG tablet Take 1 tablet by mouth every morning. 06/15/2024 Active acetaminophen (TYLENOL) 500 MG tablet Take 1,000 mg by mouth every 8 (eight) hours as needed. 06/23/2024 Active levothyroxine (SYNTHROID, LEVOTHROID) 112 MCG tablet Take 112 mcg by mouth. 06/24/2024 Active norethindrone (AYGESTIN) 5 mg tablet Take 1 tablet (5 mg total) by mouth daily. 90 tablet 1 11/30/2024 Active estradioL (VIVELLE-DOT) 0.1 mg/[address] 1 patch onto the skin 2 (two) times a week. 26 patch 3 12/14/2024 Active Active Problems Problem Noted Date Diagnosed Date Status post endometrial ablation 12/14/2024 Abnormal uterine bleeding 06/20/2024 Overview (06/20/2024): On E2 patch 0.1 mg and LNG IUD placed 2017 for surgical menopause Assessment & Plan (07/05/2024 12:29 PM EST): Ultrasound was normal, per her request IUD removed today, and 100 mg progesterone prescription sent to take daily instead. Advised that she may have a little bit of abnormal bleeding over the next month or so with this change in progesterone delivery Assessment & Plan (06/20/2024 11:29 AM EST): Suspect this is due to the hypothyroidism, thyroidectomy planned in a few days for the underlying diagnosis of thyroid cancer, and thyroid replacement is planned after that. Will check ultrasound to make sure IUD is correct location, and if the bleeding does not resolve with thyroid replacement, return to office LLQ pain 04/29/2023 Overview (04/29/2023): Sharp pains lasting only seconds twice weekly for the past month no associated symptoms Assessment & Plan (04/29/2023 2:17 PM EST): On exam this is localized to the anterior aspect of the abdominal wall in the left lower quadrant I do not suspect any gynecological source, nor do I suspect that this is due to any malposition of the IUD. I suggested applying daily hot water bottle or something similar for a week or 2 she can even try to just massage externally and if it becomes more frequent or problematic should see her primary or can return to see me Bilateral mastodynia 10/20/2017 Assessment & Plan (10/20/2017 11:50 AM EDT): Reassured normal exam. Given bilateral and nonfocal it is likely hormonal. Will await mammogram results. NSAIDS and arnica gel advised. If not resolving could consider dose adjustment for estradiol patch Surgical menopause 10/20/2017 Assessment & Plan (06/20/2024 11:29 AM EST): Month of bleeding and cramping may be due to the hypothyroidism, which will still be treated. If ultrasound normal, and this does not respond to adequate thyroid replacement therapy, return to office Assessment & Plan (01/28/2021 10:59 AM EDT): She reports occasional hot flashes and night sweats but is overall doing okay on her current HRT regimen. I explained that if the hot flashes or night sweats become worse, we could go up on the dose and the estradiol patch. In the interim, her current patch was refilled. She uses the Mirena for the progestin component. Resolved Problems Problem Noted Date Diagnosed Date Resolved Date IUD (intrauterine device) in place 10/20/2017 07/05/2024 Assessment & Plan (10/20/2017 11:50 AM EDT): Mirena inserted 08/2017, normal f/u exam Immunizations Immunization Administration Dates Next Due COVID-19 (Pre-03/15) Pfizer Vaccine, mRNA, PF 08/17/2020 Hepatitis B Adult 01/01/2009,07/24/2008,06/26/19 09 Influenza Quadrivalent Preservative Free IM 03/24 Influenza trivalent preserva tive free intradermal 05/23/2012 Td, unspecified formulation 10/13/2006 Tdap 04/05/2018 Family History Medical History Relation Comments No Known Problems Brother No Known Problems Daughter 1 No Known Problems Daughter 2 Clotting disorder Father Diabetes mellitus Father Hypertension Father Diabetes mellitus Mother Hypertension Mother Thyroid disease Mother Diabetes mellitus Sister 1 Thyroid disease Sister 1 No Known Problems Sister 2 No Known Problems Sister 3 No Known Problems Sister 4 No Known Problems Son Breast cancer Neg Hx Relation Status Comments Brother Daughter 1 Daughter 2 Father Alive Mother Alive Sister 1 Sister 2 Sister 3 Sister 4 Son Social History Tobacco Use Types Packs/Day Years Used Date Smoking Tobacco: Never Smokeless Tobacco: Never Alcohol Use Standard Drinks/Week Comments Never 0 (1 standard drink = 0.6 oz pur e alcohol) Education Answer Date Recorded Are you interested in more education? Not on pamela e 09/18/2022 Are you concerned about learning? Not on file 09/18/2022 No 09/18/2022 No 09/18/2022 Digital Access Answer Date Recorded No 10/13/2022 No 10/13/2022 Reliable internet access at home? Not on file 10/13/2022 Device with a working camera? Not on file Intimate Partner Violence Answer Date R ecorded Are you denied basic needs s uch as food, clothing, or medical care? No 10/30/2024 In the past 12 months have y ou been in a relationship with a person who hurts, threatens, or tries to control you? No 10/30/2024 Are you denied basic needs s uch as food, clothing, or medical care? No 10/30/2024 In the past 12 months have y ou been in a relationship with a person who hurts, threatens, or tries to control you? No 10/30/2024 Comments No Sex and Gender Information Value Date Recorded Sex Assigned at Not on file Legal Sex Female 9:26 PM EDT Gender Identity Not on file Sexual Orientation Not on file Last Filed Vital Signs Vital Sign Reading Time Taken Comments Blood Pressure 110/82 12/14/2024 9:46 AM EDT Pulse 67 10/30/2024 10:45 AM EDT Temperature 36.2 C (97.2 F) 10/30/2024 9:35 AM EDT Respiratory Rate 13 10/30/2024 10:45 AM EDT Oxygen Saturation 99% 10/30/2024 10:45 AM EDT Inhaled Oxygen Concentration - - Weight 68 kg (150 lb) 12/14/2024 9:46 AM EDT Height 157.5 cm (5' 2 ) 10/26/2024 10:49 AM EDT Body Mass Index 27.44 10/26/2024 10:49 AM EDT Plan of Treatment Health Maintenance Due Date Last Done Comments CREATININE LEVEL 1977 LIPID PANEL 1977 POTASSIUM LEVEL 1977 TSH LEVEL 1977 DEPRESSION SCREENING 1989 HEPATITIS C SCREENING 1995 HIV ONE-TIME SCREENING (18-65 YEARS) 1995 SCREENING FOR DIABETES 01/26/2012 COLOGUARD 2022 COLONOSCOPY 2022 COLORECTAL CANCER SCREENING 2022 FIT TEST 2022 FOBT 2022 SIGMOIDOSCOPY 2022 VIRTUAL COLONOSCOPY 2022 MAMMOGRAM 02/14/2023 02/14/2021, 12/2019, 01/02/2019, Additional history exists INFLUENZA VACCINE (#1) 2024 04/05/2018, 2011 COVID-19 VACCINE ( season) 2025 05/15/2021, 09/08/2020, 08/17/2020 PAP SMEAR 04/29/2028 04/29/2023, 08/22, 09/01/2017 Adult Td,Tdap Booster 12/25/2033 12/26/2023 , 04/05/2018, 12/22/2016, Additional history exists SMOKING STATUS SCREENING (Once After 26 Yrs) Completed 10/30/2024 HEPATITIS A VACCINES Aged Out No long er eligible based on patient's age to complete this topic HIB VACCINES Aged Out No longer eligi ble based on patient's age to complete this topic MENINGOCOCCAL VACCINES (ACWY) Aged Out No longer eligible based on patient's age to complete this topic MENINGOCOCCAL VACCINES (B) Aged Out N o longer eligible based on patient's age to complete this topic PNEUMOCOCCAL VACCINES (0-49 years) Aged Out No longer eligible based on patient's age to complete this topic Medical Devices Not on file Procedures Procedure Name Priority Date/Time Associated Diagnosis Comments PAP TEST Routine 04/29/2023 12:00 AM EST BI MAMMOGRAM SCREENING WITH TOMOSYNTHESIS WITH CAD (BILATERAL) Routine 02/14/2021 11:30 AM EDT Breast cancer screening by mammogram from Last 3 Months or Most Recently Relevant to Health Maintenance Results * Pap Test (04/29/2023 12:00 AM EST) 04/29/2023 04/30/2023 9:0 8 AM EST Narrative SEE NARRATIVE - 05/05/2023 8:44 AM EST [address] [address] [place] Attendant: Keyonna Lara MD CONSTRUCTION SITE MANAGER Cytology Report FINAL DIAGNOSIS A. PAP SMEAR (SUREPATH) CE: SPECIMEN ADEQUACY: Satisfactory for evaluation; transformation zone present. INTERPRETATION: NEGATIVE FOR INTRAEPITHELIAL LESION OR MALIGNANCY. Electronically Signed Out By: PUSHPA Aguilar(ASCP) The Pap test is a screening test primarily for squamous cancers and precursors and has associated false-negative and false-positive results. New technologies such as liquid-based preparations may decrease but will not eliminate all false-negative results. Regular sampling and follow-up of unexplained clinical signs and symptoms are recommended to minimize false negative results. PROCEDURES/ADDENDA HPV Testing (Requested) Ordered Date: 04/30/2023 A. PAP SMEAR (SUREPATH) CE: Human Papilloma Virus Test NEGATIVE for high-risk Human Papilloma Virus types 16, 18, 45 and the Other high risk probe set (Includes 31, 33, 35, 39, 51, 52, 56, 58, 59, 66, 68) Note: Testing performed by [facility] HR-HPV analysis. Clinical correlation is advised. This HPV test was performed at [facility], [address] [place] [address]. This test has been FDA approved for SurePath cervical cytology specimens. The accuracy and precision of this test for all other specimen sources has been verified in the Cytopathology Laboratory of the [facility] and has not been cleared or approved by the U.S. Food and Drug Administration. Clinical correlation is advised. CLINICAL HISTORY Date of Last Menstrual Period: Not Provided Menstrual History: Post Menopausal Treatment History: Hormone Therapy Other Clinical Conditions: Screening Pap SPECIMEN SOURCE A: PAP SMEAR (SUREPATH) CE Patient Name: GUERA MARI : 1975 (Age: 48) Sex: F [facility] Location: [facility] Date of Collection: 04/29/2023 Date of Reported: 05/05/2023 08:44 Results to: Sheryl Booker MD us Sheryl Booker MD CYTOLOGY ORDERABLES Final Result SEE NARRATIVE * BI MAMMOGRAM SCREENING WITH TOMOSYNTHESIS WITH CAD (BILATERAL) (02/14/2021 11:30 AM EDT) Anatomical Region Laterality Modality Breast Left, Breast Right, Breast Bilateral Bila teral Mammography 02/14/2021 12:3 6 PM EDT Impressions 02/14/2021 12:40 PM EDT No findings suspicious for malignancy are identified. In the absence of a worrisome palpable abnormality, annual screening mammography is recommended. BI-RADS CATEGORY: 1 - Negative. DENSITY: The breast tissue is heterogeneously dense, which could obscure a lesion on mammography. Narrative 02/14/2021 12:40 PM EDT COMPARISON: 11/19/2017 through 01/30/2020 Bilateral 3-D tomosynthesis with 2-D reconstructions in the CC and MLO projection. Computer-aided detection system was utilized. No new mass, asymmetry, architectural distortion or suspicious calcifications have become apparent on either side. Procedure Note Karlo Fatima MD - 02/14/2021 COMPARISON: 11/19/2017 through 01/30/2020 Bilateral 3-D tomosynthesis with 2-D reconstructions in the CC and MLOprojection. Computer-aided detection system was utilized. No new mass, asymmetry, architectural distortion or suspiciouscalcifications have become apparent on either side. IMPRESSION: No findings suspicious for malignancy are identified. In the absence of aworrisome palpable abnormality, annual screening mammography isrecommended. BI-RADS CATEGORY: 1 - Negative. DENSITY: The breast tissue is heterogeneously dense, which could obscurea lesion on mammography. Hemant Portillo MD IMG MG EXAMS Final Result from Last 3 Months or Most Recently Relevant to Health Maintenance Insurance [facility] NON NSPG PCP [employer] [employer]CARE [employer] NON NSPG PCP SIL[employer] CONNE[employer]CARE [employer] NON NSPG PCP SILVER CLARITY CONNECTORCARE [place] NON NSPG PCP SILVER CLARITY CONNECTORCARE [place] NON NSPG PCP SILVER CLARITY CONNECTORCARE [facility] NON NSPG PCP SAVOY CLARITY CONNECTORCARE Advance Directives For more information, please contact: [phone] (9AM - 5PM [place]ri[place], Wednesday-Wednesday) Documents on File Type Date Recorded Patient Fraternity Adviser Expl anation Healthcare Proxy 10/30/2024 Care Teams Multimedia Engineer Relationship Specialty Start Date End Date Troy, Maddison Gomez MD [address] [place] [phone] PCP - General Internal Medicine 08/30/18 Additional Source Comments The information contained in this document represents components of the legal health record. It is not the complete legal health record.[facility]
--- OUTSIDE RECORDS SUMMARY | 2025-05-18 09:50 | XMS_ITS | Clinical Summary ---
Author Organization [facility] Address [address] [place] [id number] Care Team Providers Care Embedded Linux Developer Name Role Phone Shantell Thompson NP Primary Care Provider [phone] Allergies Active Allergy Reactions Criticality Noted Date Comments Cyclobenzaprine GI Intolerance 06/20/2024 Hydrochlorothiazide GI Intolerance 06/20/2024 Ibuprofen Rash Low 06/20/2024 Medications lisinopriL (PRINIVIL,ZESTR IL) 2.5 MG tablet Take 1 tablet (2.5 mg total) by mouth daily. 5 Active levonorgestreL (MIRENA) 21 mcg/24hr (up to 8 yrs) 52 mg IUD Active gabapentin (NEURONTIN) 100 MG capsule Take 1 capsule (100 mg total) by mouth 3 times a day as needed. 5 Active estradioL (CLIMARA) 0.1 mg/[address] 1 patch on the skin once a week. Active VITAMIN D3 25 mcg (1,000 unit) capsule Take 1 capsule (1,000 Units total) by mouth daily. 5 Active VIACTIV 650 mg-12.5 mcg-40 mcg Chew CHEW 1 TABLET BY MOUTH EVERY DAY 4 Active acetaminophen (TYLENOL) 500 MG tablet Take 2 tablets (1,000 mg total) by mouth every 8 hours as needed for pain (mild to moderate pain). 40 tablet 06/23/2024 1:02 PM EST 5 Active bacitracin 500 unit/gram ointment Apply topically to the affected area every morning & every evening for 7 days after surgery (until 06/29) 28.4 g 06/23/2024 1:02 PM EST Active calcium carbonate (TUMS) 200 mg calcium (500 mg) chewable tablet Chew 2.5 tablets (1,250 mg total) 3 times a day. 200 tablet 06/23/2024 1:02 PM EST Active levothyroxine (SYNTHROID, LEVOXYL) 112 MCG tablet Take 1 tablet (112 mcg total) by mouth every morning at least 30 minutes before any food/drink or other medications 60 tablet 06/23/2024 1:02 PM EST Active oxyCODONE (ROXICODONE) 5 MG immediate release tablet Take 1 tablet (5 mg total) by mouth every 4 hours as needed for pain (moderate to severe). 10 tablet 06/23/2024 1:02 PM EST Active polyethylene glycol (MIRALAX) 17 gram packet Dissolve 1 packet (17 g total) in 6-8 ounces of water or non-carbonated beverage and take by mouth daily as needed (to prevent constipation while taking oxycodone). 14 each 06/23/2024 1:02 PM EST Active sennosides (SENOKOT) 8.6 mg tablet Take 2 tablets (17.2 mg total) by mouth at bedtime. 20 tablet 06/23/2024 1:02 PM EST 5 Active Active Problems Problem Noted Date Diagnosed Date Benign neoplasm of thyroid gland 06/22/2024 History of general anesthesia 06/21/2024 Hypertension 06/21/2024 Primary malignant neoplasm of thyroid gland 04/23 Social History Tobacco Use Types Packs/Day Years Used Date Smoking Tobacco: Never Tobacco Cessation:Counseling Given: Not Answered Alcohol Use Standard Drinks/Week Comments Never 0 (1 standard drink = 0.6 oz pur e alcohol) [facility] Utilities Answer Date Recorded In the past 12 months has e [employer], gas, oil, or water A[employer] threatened to shut off services in your home? No 06/22/2024 Humiliation, Afraid, Rape, and Kick questionnair e Answer Date Recorded Within the last year, have y ou been afraid of your partner or ex-partner? No 06/22/2024 Emotionally Abused Not on file 06/22/2024 Physically Abused Not on file 06/22/2024 Sexually Abused Not on file 06/22/2024 Overall Financial Resource Strain (CARDIA) Answe r Date Recorded How hard is it for you to pa y for the very basics like food, housing, medical care, and heating? Not very hard 06/22/2024 Hunger Vital Sign Answer Date Recorded Within the past 12 months, y ou worried that your food would run out before you got the money to buy more. Never true 06/22/19 25 Ran Out of Food in the Last Year Not on file 06/22/2024 PRAPARE - Transportation Answer Date Re corded In the past 12 months, has l ack of transportation kept you from medical appointments or from getting medications? No 05/26 In the past 12 months, has l ack of transportation kept you from meetings, work, or from getting things needed for daily living? No 06/22/2024 Housing Stability Vital Sign Answer Rivas e Recorded In the last 12 months, was t here a time when you were not able to pay the mortgage or rent on time? No 06/22/2024 Number of Times Moved in the Last Year Not on fi le 06/22/2024 At any time in the past 12 m [facility], were you homeless or living in a longterm (including now)? No 06/22/2024 Food Insecurity Answer Date Recorded Within the past 12 months, y ou worried that your food would run out before you got the money to buy more. Never true 06/22/19 25 Ran Out of Food in the Last Year Not on file 06/22/2024 Intimate Partner Violence Answer Date R ecorded Emotionally Abused Not on file 06/22/2024 Within the last year, have y ou been afraid of your partner or ex-partner? No 06/22/2024 Physically Abused Not on file 06/22/2024 Sexually Abused Not on file 06/22/2024 Housing Stability Answer Date Recorded Unstable Housing in the Last Year Not on file 06/22/2024 In the last 12 months, was t here a time when you were not able to pay the mortgage or rent on time? No 06/22/2024 [address] Lived in the Last Year Not on f ile 06/22/2024 AUDIT C Answer Date Recorded How often have you had a dri nk containing alcohol, in the past year? 1 06/22/2024 How many standard drinks con taining alcohol have you had on a typical day when you are drinking, in the past year? 00 0 06/22/2024 How often have you had six o r more drinks on one occasion, in the past year? 0 06/22/2024 Comments No Sex and Gender Information Value Date Recorded Sex Assigned at Female 04/28/2024 11:00 AM EST Legal Sex Female 9:05 AM EST Gender Identity Female 04/28/2024 11:00 AM EST Sexual Orientation Bisexual 04/28/2024 11 :00 AM EST Last Filed Vital Signs Vital Sign Reading Time Taken Comments Blood Pressure 142/83 07/03/2024 10:27 AM EST Pulse 86 07/03/2024 10:27 AM EST Temperature 36.7 C (98 F) 06/23/2024 11:54 AM EST Respiratory Rate 18 06/23/2024 11:54 AM EST Oxygen Saturation 99% 07/03/2024 10:27 AM EST Inhaled Oxygen Concentration - - Weight 67 kg (147 lb 12.8 oz) 07/03/2024 10:27 A M EST Height 157.5 cm (5' 2 ) 07/03/2024 10:27 AM EST Body Mass Index 27.03 07/03/2024 10:27 AM EST Plan of Treatment Health Maintenance Due Date Last Done Comments Hemoglobin A1c 1977 Lipid Panel 1977 Depression Screening 1989 Hepatitis C Screening 1995 Pap Smear 1998 Cervical Cancer Screening 2007 HPV/Cotest 2007 CT Colonography 2022 Colonoscopy 2022 Colorectal Cancer Screening 2022 FIT 2022 FOBT 2022 Multitarget Stool DNA (Cologuard) 2022 Sigmoidoscopy 2022 Breast Cancer Screening 02/14/2023 02/15/20 21, 02/14/2021, 01/30/2020, Additional history exists COVID-19 Vaccine ( season) 2025 05/15/2021, 09/08/2020, 08/17/2020 Influenza Vaccine (#1) 2025 04/05/2018, 2011 Blood Pressure 07/03/2025 07/03/2024 DTaP,Tdap,and Td Vaccines (6 - Td or Tdap) 12/25/2033 12/26/2023, 04/05/2018, 12/22/2016, Additional history exists Meningococcal B Vaccines Aged Out No longer eligible based on patient's age to complete this topic Meningococcal Vaccines Aged Out No lo nger eligible based on patient's age to complete this topic Pneumococcal Vaccine Aged Out No long er eligible based on patient's age to complete this topic Medical Devices Implanted Type Area Model Maker Plaster Device Identifier Shelf Expiration Date Model / Serial / Lot [employer] Maintenance Organization (O) Address: [employer] [address] [place] [phone] [facility] Maintenance Organization (O) Address: [employer] [id number] [place] [phone] Advance Directives * Full Code (Latest Code Status on File) Date Activated Date Inactivated Comments 06/22/2024 7:21 AM Question Answer Comments Discussed with/per: Patient Care Teams Embedded Linux Developer Relationship Specialty Start Date End Date Shantell Thompson RAIL BONDER [address] [place] [phone] PCP - General Nurse Practitioner 04/28/24
--- OUTSIDE RECORDS SUMMARY | 2025-05-18 09:50 | XMS_ITS | Clinical Summary ---
Author Organization [employer] Address [address] [place] [address] Care Team Providers Care Fueler Name Role Phone Joey Estrada DDJojo Primary Care Provider [phone] Social History Tobacco Use Types Packs/Day Years [...] 1977 FIT 1977 FOBT 1977 Sigmoidoscopy 1977 Disability Screening 1977 Alcohol/Substance Use Screening 1989 Tobacco Screening 1989 Family Planning (PISQ) 01/26/1992 Pap Smear 1998 Cervical Cancer Screening 2007 HPV/Cotest 2007 Dental Prophylaxis 10/01/2015 04/01/2015 Dental Oral Exam 01/07/2022 07/09/2021, , 05/13/2015, Additional history exists Dental X-Ray: Bitewings 07/10/2022 07/09/19 22, 03/06/2018, 08/17/2017, Additional history exists Mammogram 02/14/2023 02/14/2021, 09/0 12/2019, 01/02/2019, Additional history exists Dental X-Ray: Full Mouth 07/10/2024 022, 10/11/2014, 09/05/2014 COVID-19 Vaccine ( - season) 2025 05/15/2021, 09/08/2020, 08/17/2020 Influenza Vaccine (#1) 2025 04/05/2018, 2011 Zoster Vaccines (1 of 2) 2027 DTaP/Tdap/Td [...] Years) and At-Risk Patients (6 to 49) Years Aged Out No longer eligible based on [...] Insurance DENTAL - [facility] Care Teams Fueler Relationship Specialty Start Date End Date Joey Estrada DDS [address] [place], [place] [address] [address] PCP - General Dentist 03/20/22
--- OUTSIDE RECORDS SUMMARY | 2025-05-18 09:50 | XMS_ITS | Encounter Summary ---
Author Organization [facility] Address [address] [place] [address] Phone Care Team Providers Care Assistant Broker Name Role Phone Paula Pop EDUCATION SALES CONSULTANT Unavailable Camryn Dillon CNM Unavailable Ayde Riddle MD Unavailable Andi Verma MD Unavailable Dale Nava MD Unavailable Maddison Simmons MD Primary Care Provider [phone] Encounter Details Date Type Department Care Team (Late st Contact Info) Description 01/28/2021 Procedure Pass [facility], [address] [address] Social History Tobacco Use Types Packs/Day Years Used Date Smoking Tobacco: Never Smokeless Tobacco: Never Alcohol Use Standard Drinks/Week Comments Yes 0 (1 standard drink = 0.6 oz pur e alcohol) RARE Comments No Sex and Gender Information Value Date Recorded Sex Assigned at Not on file Legal Sex Female 9:26 PM EDT Gender Identity Not on file Sexual Orientation Not on file documented as of this encounter Plan of Treatment Not on file documented as of this encounter Visit Diagnoses Not on filedocumented in this encounter Care Teams Assistant Broker Relationship Specialty Start Date End Date Maddison Simmons MD [address] [place] [address] PCP - General Internal Medicine 08/30/18 Paula Pop NP [address] [address] Historical LMR Provider 03/10/17 2 Camryn Dillon CNM [address] [place] [address] Historical LMR Provider 03/10/17 2 Ayde Riddle MD [address] [place] [address] Historical LMR Provider 03/10/17 2 Andi Verma MD [address] [facility] [address] [place] [phone] [email or web address] Historical LMR Provider 03/10/17 05/31/21 Dale Nava MD [address] [place] [phone] Historical LMR Provider 03/10/17 2 documented as of this encounter Additional Source Comments The information contained in this document represents components of the legal health record. It is not the complete legal health record.[facility]
--- OUTSIDE RECORDS SUMMARY | 2025-05-18 09:50 | XMS_ITS | Encounter Summary ---
Author Organization [facility] Address [address] [facility] [address] [place] [phone] Phone Care Team Providers Care Supervisor Instrument Mechanics Name Role Phone Maddison Simmons MD Primary Care Provider [phone] Encounter Details Date Type Department Care Team (Late st Contact Info) Description 10/30/2024 Procedure Pass [place] Admitting Dept - Virtual Department [address] [place] [address] Social History Tobacco Use Types Packs/Day Years [...] on filedocumented in this encounter Care Teams Supervisor Instrument Mechanics Relationship Specialty Start Date End Date Maddison Simmons MD [address] [place] [phone] PCP - General Internal Medicine 08/30/18 documented as of this encounter Additional Source Comments The information contained in this document represents components of the legal health record. It is not the complete legal health record.[facility]
[2025-05-18 10:02] VITALS: BP 102/64; PULSE 68; RESP 12; TEMP 37.1; O2SAT 98; BMI 27.8
--- NOTE | 2025-05-18 10:02 | A.OFFPC_ITS ---
Vital Signs 05/18/25 10:02 Height 5 ft 3 in Weight 157 lb BMI 27.8 BP 102/64 Blood Pressure Location Lt brachial Position Sitting Respiration 12 Pulse 68 Pulse Source Pulse Oximeter Temp 98.7 F Temp Source Oral Pulse Oximetry (%) 98 Oxygen Delivery Method Room Air Intake Visit Reasons: cpe Allergies hydrochlorothiazide Adverse Reaction (Mild, Verified 05/18/25 10:23) Nausea ibuprofen Adverse Reaction (Mild, Verified 05/18/25 10:23) Unknown cyclobenzaprine Adverse Reaction (Unknown, Verified 05/18/25 10:23) rapid heart rate Medication List - Last Reconciled 05/18/25 by Shantell Thompson, [employer]- acetaminophen (Tylenol) 650 mg (2 x 325 mg) PO Q4H PRN cholecalciferol (vitamin D3) (Vitamin D3) 25 mcg PO DAILY estradiol transdermal levothyroxine (Synthroid) 112 mcg PO DAILY lisinopril 2.5 mg PO DAILY Tobacco use date assessed: 05/18/25 Dental Screening Dental Screen Date: 09/01/24 HPI HPI Comments History of Present Illness Details 50 y/o F with chronic back pain, osteope serge, htn, thyroid cancer s/p thyroidectomy, small vessel ischemic disease (brain mri 04/2024) social: 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 Alive and well. Siblings: 4 sisters, 2 brothers. Alive and well. Health Maintenance: Pap active w/ SERVICE DESK TEAM LEAD Mammo 11/12/23 normal , will schedule DEXA 10/2023 Osteopenia, repeat 5 years start Ca+D Tdap , Declined flu shot 2024 Colon never had one cologaurd ordered today Specialists: Endo Optho December 08 2023 [employer] TE[employer] LE[employer] 09/2024 Endometrial polyp caused vaginal bleeding fu with [employer] History of Present Illness The patient is a 50 year old female presenting for a complete physical exam. Fatigue: - The patient reports feeling more sleep y than normal. - Her thyroid levels have been fluctuati ng, and she has not had them checked since November. - She continues to take her thyroid medi cation daily. Vulvitis: - The patient reports labial irritation and inflammation, particularly when cl eaning. - She denies itching. - She has been using powder and has jimenez ged her liner, but the irritation persists. - She has a history of surgery for a daniel rine polyp after experiencing bleeding for nearly two months. Essential hypertension: - The patient has a history of hypertens ion, managed with lisinopril 2.5 mg. History of Thyroid Cancer: - The patient has a history of thyroid c ancer and is status post thyroidectomy. - Her condition is managed by endocrinol evelio, and she takes levothyroxine. Osteopenia: - The patient has a history of osteopeni a and takes vitamin D3 supplements. - A bone density scan was performed in , and the next one is scheduled for 2028. Small vessel ischemic disease: - Small vessel ischemic disease was note d on a brain MRI from 05/16. Chronic back pain: - The patient has a history of chronic b ack pain and takes Tylenol for it. Past Medical History - Chronic back pain - Osteopenia - Hypertension - Thyroid cancer - Small vessel ischemic disease, noted o n brain MRI Past Surgical History - Thyroidectomy - Uterine polyp removal Family History - No changes in family history reported. 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 Health Maintenance - Patient is due for a screening mammogr am; she will call to schedule. - Patient declines colonoscopy and will complete a Cologuard at-home test instead. - An order for the Cologuard kit will be placed, and it will be mailed to her home. - Patient declines influenza vaccination today. Review of Systems - General: Reports feeling more sleepy t rodriguez usual. - Genitourinary: Reports external labial irritation and inflammation, but denies itching. - She reports normal bowel and bladder f unction. - She denies concerns for sexually trans mitted diseases. Physical Exam General: Well developed, well nourished, in no acute distress. Appears stated age. Head: Normocephalic, atraumatic. Eyes: Pupils are equal, round and reactive to light and accommodation. Conjunctivae are clear. Scleras nonicteric bilat. Vision grossly normal. Ears: TMs clear AU, EACS WNL Nose: Patent, without discharge. Neck: No carotid bruit bilat. Supple, no adenopathy.. Scar from thyroidectomy noted, well-healed. Breast: Edu on SBE. Due for a mammogram. Lungs: Clear to auscultation bilaterally. No rales, rhonchi or wheeze noted. Good air flow in all [place]. Heart: Regular rate and rhythm. No murmurs, click, rubs or gallops are noted. Abdomen: Bowel sounds present in all quadrants. The abdomen is soft, nontender, with no masses or organomegaly noted. No hernias are noted. : Exam deferred, External irritation verbalized, advised against using powders. Cream prescribed for external use. Reviewed recommendations for routine SERVICE DESK TEAM LEAD. Pulses: Peripheral pulses are equal and palpable bilaterally. Extremities: No clubbing, cyanosis nor edema is noted. Neurologic: Gait and station normal. Cranial Nerves 2-12 intact. Motor strength grossly symmetrical and intact. No sensory loss. Balance normal. Skin: No rashes, ulcers, or lesions noted. Turgor is good. Skin color is good. Hair and nails are without abnormalities. Psych: Normal eye contact, affect and mood appropriate, and normal interactions. Patient is alert and appropriate to context. Reports feeling tired. Results - Brain MRI (05/16): Showed small vessel ischemic disease. - Bone Density Scan (2023): No new findi ngs mentioned, next scan due in 2028. - CMP: Last checked in September. - Thyroid Labs: Last done in November. Medical Decision Making The patient is a 50-year-old female here for a complete physical exam with additional complaints of fatigue and vulvar irritation. Given her history of thyroid cancer, post-thyroidectomy status, and fluctuating thyroid levels, her fatigue is likely related to her thyroid function, which has not been assessed since November. Therefore, I will order a thyroid panel today, with results sent to her boat motor mechanic. We will also check a CMP, cholesterol panel, and vitamin D level as part of her wellness labs. Her vulvar irritation, described as inflammation without itching, is suggestive of a contact dermatitis, which may be exacerbated by her use of powders. I will check a urinalysis to rule out a concurrent UTI. I have advised her to stop using powders and will prescribe topical clobetasol 0.05% cream. Her insurance requires a prior authorization for this medication, which my office will pursue. We also addressed routine health maintenance. Her blood pressure is well- controlled on lisinopril, which will be continued. She is due for a mammogram and will schedule this. She has not had a colonoscopy and has opted for a home Cologuard test, which I will order for her. She declines the influenza vaccine today. Plan 1. Fatigue - Order labs to be drawn today including a CMP, cholesterol panel, vitamin D, and a thyroid panel. - The thyroid lab results will be sent t o her boat motor mechanic, Dr. Lawrence, for management. 2. Vulvitis - Prescribe clobetasol 0.05% cream to be applied externally twice a day. - Advise patient to discontinue the use of powders as they can worsen irritation. - Attempt to obtain prior authorization for the prescribed medication as required by insurance. - Order a urinalysis to rule out a urina ry tract infection. - If symptoms do not improve, the patien t should follow up with this office or her [facility]. 3. Essential Hypertension - Blood pressure is well-controlled; con tinue current dose of lisinopril. Patient Instructions - Stop using any powders on your genital area, as this can make the irritation worse. - Apply the prescribed cream (clobetasol ) to the outside irritated skin twice a day. - We are working on getting the cream ap proved by your insurance; the pharmacy will let you know when it is ready. - If the irritation does not get better, please call our office or your OBGYN. - Please schedule your mammogram. - A colon cancer screening kit (Cologuar d) will be mailed to your home. - Please complete the poop sample test a nd mail it back within two weeks. - Please go to the lab to have your bloo d drawn today before you leave. - Stop at the manager front to make your ne xt appointment. - We will send your results to you throu the patient portal. - RTO 1 year CPE sooner PRN Consent Patient was informed and verbally consented to the use of an ambient scribe for clinic note documentation during this visit. An additional 20 minutes was spent addressing the problem(s) noted at todays visit. This includes time spent before the visit reviewing the chart, time spent during the visit, and time spent after the visit on documentation reviewing laboratory results, diagnostic imaging, medications, performing a medically necessary evaluation, counseling on diagnoses, care coordination, ordering appropriate tests, ordering appropriate medications, review of tests performed by other providers, reporting test results with the patient, communication with other healthcare providers. [facility] Medical History (Updated 05/18/25 @ 10:37 by Shantell Thompson [facility]) Bilateral sciatica Lower thoracic back pain Lumbar muscle pain Lumbar radiculopathy Multiple thyroid nodules Muscle strain of chest wall No pertinent past medical history Postsurgical hypothyroidism Thyromegaly Vitamin D deficiency Surgical History History of thyroidectomy Social History (Updated 05/18/25 @ 10:15 by Maria Del Rosario Perez CMA) Housing: House Alcohol intake: never Patient Tobacco Use Status: Never used Tobacco e-Cigarette/Vaping Use: Never Used Second Hand Smoke Exposure: Yes service: No Current occupational status: employed 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 1. Little interest or pleasure in doing things: not at all 2. Feeling down, depressed, or hopeless: not at all 3. Trouble falling or staying asleep, or sleeping too much: not at all 4. Feeling tired or having little energy: not at all 5. Poor appetite or overeating: not at all 6. Feeling bad about yourself - or that you are a failure or have let yourself or your family down: not at all 7. Trouble concentrating on things, such as reading the newspaper or watching television: not at all 8. Moving or speaking so slowly that other people could have noticed. Or the opposite - being so fidgety or restless that you have been moving around a lot more than usual: not at all 9. Thoughts that you would be better off or of hurting yourself in some way: not at all Total score: 0 Depression Screening Interpretation: Negative Depression Screening Done: Yes 42859 - PHQ-9 Billing: Yes Source: Developed by Drs. Chilango Arenas, Giulia Van, Yousif Britt and colleagues, with an educational robert from judo. Thrive Questionnaire Date Thrive assessed: 06/08/24 I am a: Patient What is your living situation today?: I have a steady place to live Within the past 12 months, did the food you bought not last and you didn't have the money to get more?: Never true Within the past 12 months, did you worry whether your food would run out before you got money to buy more?: Never true Do you have trouble paying for medicines?: No Do you have trouble getting transportation to medical appointments?: No Do you have trouble paying your heating and electricity bill?: No Do you have trouble taking care of your child, family member or friend?: No Do you have trouble with day-to-day activities such as bathing, preparing meals, shopping, managing finances, etc.?: No Are you currently unemployed and looking for a job?: No Are you interested in more education?: Yes Currently or been in a relationship where the following occur: No concerns reported THRIVE Score: 0 AUDIT C Alcohol Use Questionnaire (AUDIT-C) 1. How often do you have a drink containing alcohol?: Never 3. How often do you have six or more drinks on one occasion?: Never Total Score: 0 MK-7 AMB Questionnaire MK-7 Date MK - 7 assessed: 06/30/24 Source: Developed by Drs. Chilango Arenas, Giulia Van, Yousif Britt and colleagues, with an educational robert from judo. Physical exam (Primary Care) Vital Signs: Last Vital Signs Temp 98.7 F 05/18/25 10:02 Pulse 68 05/18/25 10:02 Resp 12 05/18/25 10:02 BP 102/64 05/18/25 10:02 Pulse Ox 98 05/18/25 10:02 Oxygen Delivery Method Room Air 05/18/25 10:02 BMI result Body Mass Index 27.8 Tobacco/Smoking Status: Tobacco use Status Tobacco use date assessed 05/18/25 05/18/25 10:07 Patient Tobacco Use Status Never used Tobacco 05/18/25 10:15 e-Cigarette/Vaping Use Never Used 05/18/25 10:15 Depression Screening Interpretation: Negative Thrive Assessment: Date of Thrive Assessment Date Thrive assessed 06/08/24 05/18/25 10:07 Currently or been in a relationship where the following occur: No concerns reported Coding Level of Care Code Est Pt Level 3 (18605) Est Pt Prev Care 40-64y(24061) Diagnoses Encounter for general adult medical examination with abnormal findings Z00.01 Osteopenia of neck of left femur M85.852 Osteopenia location: femoral neck Laterality: left Vitamin D deficiency E55.9 Primary hypertension I10 Hypertension type: primary hypertension Influenza vaccination declined Z28.21 Postsurgical hypothyroidism E89.0 S/P complete thyroidectomy Z98.890; Z90.89 Colon cancer screening Z12.11 History of mammogram Z92.89 History of Papanicolaou smear of cervix Z92.89 Labial irritation N90.89 Fatigue R53.83 Additional Codes PHQ-9 - 27371 - PHQ-9 Billing: Yes ([id number]) Assessment & Plan Assessment & Plan (1) Encounter for general adult medical examination with abnormal findings: Onset Date: ~05/18/25 Code(s): Z00.01 - Encounter for general adult medical examination with abnormal findings Category: Medical (2) Osteopenia: Comment: 10/2023 femur, repeat 5 years Code(s): M85.80 - Other specified disorders of bone density and structure, unspecified site Category: Medical Qualifiers: Osteopenia location: femoral neck Laterality: left Qualified Code(s): M85.852 - Other specified disorders of bone density and structure, left thigh (3) Vitamin D deficiency: Code(s): E55.9 - Vitamin D deficiency, unspecified Category: Medical (4) HTN (hypertension): Code(s): I10 - Essential (primary) hypertension Category: Medical Qualifiers: Hypertension type: primary hypertension Qualified Code(s): I10 - Essential (primary) hypertension (5) Influenza vaccination declined: Onset Date: ~05/18/25 Code(s): Z28.21 - Immunization not carried out because of patient refusal Category: Medical (6) Postsurgical hypothyroidism: Code(s): E89.0 - Postprocedural hypothyroidism Category: Medical (7) S/P complete thyroidectomy: Code(s): Z98.890 - Other specified postprocedural states; Z90.89 - Acquired absence of other organs Category: Medical (8) Colon cancer screening: Code(s): Z12.11 - Encounter for screening for malignant neoplasm of colon Category: Medical (9) History of mammogram: Onset Date: ~10/2023 Code(s): Z92.89 - Personal history of other medical treatment Category: Medical (10) History of Papanicolaou smear of cervix: Onset Date: ~2024 Code(s): Z92.89 - Personal history of other medical treatment Category: Medical (11) Labial irritation: Code(s): N90.89 - Other specified noninflammatory disorders of vulva and perineum Category: Medical (12) Fatigue: Code(s): R53.83 - Other fatigue Plan , Orders: Orders Comprehensive Met. Panel Today E55.9 - Vitamin D deficiency, unspecified, I10 - Essential (primary) hypertension, M85.852 - Other specified disorders of bone density and structure, left thigh, Z00.01 - Encounter for general adult medical examination with abnormal findings Microalbumin, Random (w Creat) Today E55.9 - Vitamin D deficiency, unspecified, I10 - Essential (primary) hypertension, M85.852 - Other specified disorders of bone density and structure, left thigh, Z00.01 - Encounter for general adult medical examination with abnormal findings Complete Blood Count no Diff Today E55.9 - Vitamin D deficiency, unspecified, I10 - Essential (primary) hypertension, M85.852 - Other specified disorders of bone density and structure, left thigh, Z00.01 - Encounter for general adult medical examination with abnormal findings Lipid Panel Today E55.9 - Vitamin D deficiency, unspecified, I10 - Essential (primary) hypertension, M85.852 - Other specified disorders of bone density and structure, left thigh, Z00.01 - Encounter for general adult medical examination with abnormal findings UA CC w/rflx Micro + Cult Today E55.9 - Vitamin D deficiency, unspecified, I10 - Essential (primary) hypertension, M85.852 - Other specified disorders of bone density and structure, left thigh, R30.0 - Dysuria, Z00.01 - Encounter for general adult medical examination with abnormal findings Vitamin B12 and Folate Today E55.9 - Vitamin D deficiency, unspecified, I10 - Essential (primary) hypertension, M85.852 - Other specified disorders of bone density and structure, left thigh, Z00.01 - Encounter for general adult medical examination with abnormal findings Vitamin D 25-OH Total Today E55.9 - Vitamin D deficiency, unspecified, I10 - Essential (primary) hypertension, M85.852 - Other specified disorders of bone density and structure, left thigh, Z00.01 - Encounter for general adult medical examination with abnormal findings Referrals Cologuard Test Z12.11 - Encounter for screening for malignant neoplasm of colon Medications: New clobetasol 0.05% 1 appl topical BID 30 grams 0RF 2 weeks Patient Instructions: Health screenings for women You should visit your health care provider from time to time, even if you are healthy. The purpose of these visits is to: Screen for medical issues Assess your risk for future medical problems Encourage a healthy lifestyle Update vaccinations and other preventive care services Help you get to know your provider in case of an illness Information Even if you feel fine, you should still see your provider for regular checkups. These visits can help you avoid problems in the future. For example, the only way to find out if you have high blood pressure is to have it checked regularly. High blood sugar and high cholesterol levels also may not have any symptoms in the early stages. A simple blood test can check for these conditions. There are specific times when you should see your provider or receive specific health screenings. The [place] Preventive Services Task Force publishes a list of recommended screenings. Below are screening guidelines for women ages 18 to 39. BLOOD PRESSURE SCREENING Your blood pressure should be checked at least once every 3 to 5 years if: Your blood pressure is in the normal range (top number less than 120 mm Hg and bottom number less than 80 mm Hg) You don't have risk factors for high blood pressure Ask your provider if you need your blood pressure checked more often if: The top number is 120 to 129 mm Hg or the bottom number is 70 to 79 mm Hg You have diabetes, heart disease, kidney problems, are overweight, or have certain other health conditions You have a first-degree relative with high blood pressure You are Black You had high blood pressure during a If the top number is 130 mm Hg or greater or the bottom number is 80 mm Hg or greater, this is considered stage 1 hypertension. Schedule an appointment with your provider to learn how you can reduce your blood pressure. Watch for blood pressure screenings in your area. Ask your provider if you can stop in to have your blood pressure checked. BREAST CANCER SCREENING Experts do not agree about the benefits of breast self-exams in finding breast cancer or saving lives. Talk to your provider about what is best for you. A screening mammogram is not recommended for most women under age 40. Your provider may discuss and recommend mammograms, MRI scans, or ultrasounds if you have an increased risk for breast cancer, such as: A mother or sister who had breast cancer at a young age (most often starting screening earlier than the age the close relative was diagnosed) You carry a high-risk genetic marker CERVICAL CANCER SCREENING Cervical cancer screening should start at age 21 years unless your provider advises otherwise. After the first test: Women ages 21 through 29 should have a Pap test every 3 years. Exoprts do not agree on whether HPV testing is recommended for this age group. Women ages 30 through 65 should be screened with either a Pap test every 3 years or the HPV test every 5 years or both tests every 5 years (called cotesting ). Women who have been treated for precancer (cervical dysplasia) should continue to have Pap tests for 20 years after treatment or until age 65, whichever is longer. If you have had your uterus and cervix removed (total hysterectomy), and you have not been diagnosed with cervical cancer or precancer (high grade cervical neoplasia), you do not need cervical cancer screening. CHOLESTEROL SCREENING Cholesterol screening should begin at: Age 45 for women with no known risk factors for coronary heart disease Age 20 for women with known risk factors for coronary heart disease Repeat cholesterol screening should take place: Every 5 years for women with normal cholesterol levels More often if changes occur in lifestyle (including weight gain and diet) More often if you have diabetes, heart disease, kidney problems, or certain other conditions DIABETES SCREENING You should be screened for diabetes starting at age 35 and then repeated every 3 years if you have no risk factors for diabetes. Screening may need to start earlier and be repeated more often if you have other risk factors for diabetes, such as: You have a first degree relative with diabetes. You are overweight or have obesity. You have high blood pressure, prediabetes, or a history of heart disease. Screening for diabetes should be done if you are planning to become and you are overweight and have other risk factors such as high blood pressure. DENTAL EXAM Go to the dentist once or twice every year for an exam and cleaning. Your dentist will evaluate if you need more frequent visits. EYE EXAM Have an eye exam every 5 to 10 years before age 40. If you have vision problems, have an eye exam every 2 years or more often if recommended by your provider. You should have an eye exam that includes an examination of your retina (back of your eye) at least every year if you have diabetes. IMMUNIZATIONS Commonly needed vaccines include: Flu shot: get one every year. COVID-19 vaccine: ask your provider what is best for you. Tetanus-diphtheria and acellular pertussis (Tdap) vaccine: have one at or after age 19 as one of your tetanus-diphtheria vaccines if you did not receive it as an adolescent. Tetanus-diphtheria: have a booster (or Tdap) every 10 years. Varicella vaccine: receive 2 doses if you never had chickenpox or the varicella vaccine. Hepatitis B vaccine: receive 2, 3, or 4 doses, depending on your exact circumstances. Measles, mumps, and rubella (MMR) vaccine: receive 1 to 2 doses if you are not already immune to MMR. Your provider can tell you if you are immune. Ask your provider about the human papillomavirus (HPV) vaccine if: You have not received the HPV vaccine in the past You have not completed the full vaccine series (you should catch up on this shot) Ask your provider if you should receive other immunizations if you have certain health problems that increase your risk for some diseases such as pneumonia. INFECTIOUS DISEASE SCREENING Women who are sexually active should be screened for chlamydia and gonorrhea up until age 25. Women 25 years and older should be screened for chlamydia and gonorrhea if at high risk. Screening for hepatitis C: All adults ages 18 to 79 should get a one-time test for hepatitis C. people should be screened at every . Screening for human immunodeficiency virus (HIV): All people ages 15 to 65 should get a one-time test for HIV. Depending on your lifestyle and medical history, you may also need to be screened for infections such as syphilis and HIV, as well as other infections. PHYSICAL EXAM All adults should visit their provider from time to time, even if they are healthy. The purpose of these visits is to: Screen for disease Assess your risk of future medical problems Encourage a healthy lifestyle Update your vaccinations and other preventive care services Maintain a relationship with a provider in case of an illness Your height, weight, and BMI should be checked at every exam. During your exam, your provider may ask you about: Depression and anxiety Diet and exercise Alcohol and tobacco use Safety issues, such as using seat belts, smoke detectors, and intimate partner violence Your medicines and risk for interactions SKIN SELF-EXAM Your provider may check your skin for signs of skin cancer, especially if you're at high risk, such as if you: Have had skin cancer before Have close relatives with skin cancer Have a weakened immune system OTHER SCREENING Talk with your provider about colon cancer screening if you have a strong family history of colon cancer or polyps, or if you have had inflammatory bowel disease or polyps yourself. Routine bone density screening of women under 40 is not recommended.
== END 2025-05-18 10:36 | disposition home or self-care (01) ==
LOC: HO.HMCFM 09:47
PROVIDERS: PCP Nurse Practitioner Family; Visit Provider Nurse Practitioner Family
DX: Z00.01 Encounter for general adult medical examination with abnormal findings (principal); M85.852 Other specified disorders of bone density and structure, left thigh; E55.9 Vitamin D deficiency, unspecified; I10 Essential (primary) hypertension; E89.0 Postprocedural hypothyroidism; E53.8 Deficiency of other specified B group vitamins; R53.83 Other fatigue; N90.89 Other specified noninflammatory disorders of vulva and perineum; Z12.11 Encounter for screening for malignant neoplasm of colon; Z28.21 Immunization not carried out because of patient refusal; Z90.89 Acquired absence of other organs; Z85.850 Personal history of malignant neoplasm of thyroid